=== PATIENT | male | born 1970 | race Caucasian/White ===

== ENCOUNTER 2017-01-30 12:09 | Inpatient (IN) | payer OTHER ==
[2017-01-30 18:35] VITALS: BMI 36.3
--- NOTE | 2017-01-30 20:37 | HP ---
CIWA Score - CIWA Score Nausea/Vomitin-Mild Nausea/No Vomiting Muscle Tremors: 4-Moderate,w/Arms Extend Anxiety: 4-Mod. Anxious/Guarded Agitation: 4-Moderately Restless Paroxysmal Sweats: 2 Orientation: 1-Uncertain about Date Tacttile Disturbances: 0-None Auditory Disturbances: 0-None Visual Disturbances: 0-None Headache: 0-None Present CIWA-Ar Total Score: 16 Admission ROS BHS - HPI Chief Complaint: WITHDRAWAL SX Allergies/Adverse Reactions: Allergies Allergy/AdvReac Type Severity Reaction Status Date / Time No Known Allergies Allergy Verified 01/30/17 20:10 History of Present Illness: 46 YEARS OLD MALE WITH LONG HISTORY OF KLONOPINE NICOTINE DEPENDENCE HAS HEPATITIS C GERD CONSTIPATION AND BIPOLAR II IS ADMITTED TO DETOX Exam Limitations: No Limitations - Ebola screening Have you traveled outside of the country in the last 21 days: No Have you had contact with anyone from an Ebola affected area: No Have you been sick,other than usual withdrawal symptoms: No Do you have a fever: No - Review of Systems Constitutional: Chills, Changes in sleep, Weight Stable EENT: reports: No Symptoms Reported Respiratory: reports: No Symptoms reported Cardiac: reports: No Symptoms Reported GI: reports: Nausea, Poor Fluid Intake, Indigestion, Abdominal cramping : reports: No Symptoms Reported Musculoskeletal: reports: Joint Pain (KNEES), Muscle Pain (SHOULDERS) Integumentary: reports: No Symptoms Reported Neuro: reports: Tremors Endocrine: reports: No Symptoms Reported Hematology: reports: No Symptoms Reported Psychiatric: reports: Judgement Intact, Anxious, Depressed Other Systems: Reviewed and Negative Patient History - Patient Medical History Hx Anemia: No Hx Asthma: No Hx Chronic Obstructive Pulmonary Disease (COPD): No Hx Cancer: No Hx Cardiac Disorders: No Hx Congestive Heart Failure: No Hx Hypertension: No Hx Hypercholesterolemia: No Hx Pacemaker: No HX Cerebrovascular Accident: No Hx Seizures: No Hx Dementia: No Hx Diabetes: No Hx Gastrointestinal Disorders: No Hx Liver Disease: No Hx Genitourinary Disorders: No Hx Sexually Transmitted Disorders: No Hx Renal Disease (ESRD): No Hx Thyroid Disease: No Hx Human Immunodeficiency Virus (HIV): No Hx Hepatitis C: Yes Hx Depression: No Hx Suicide Attempt: No Hx Bipolar Disorder: No Hx Schizophrenia: No - Patient Surgical History Past Surgical History: Yes Hx Neurologic Surgery: No Hx Cataract Extraction: No Hx Cardiac Surgery: No Hx Lung Surgery: No Hx Breast Surgery: No Hx Breast Biopsy: No Hx Abdominal Surgery: Yes (2009 UMBILICAL HERNIA REPAIRED) Hx Appendectomy: No Hx Cholecystectomy: No Hx Genitourinary Surgery: No Hx Orthopedic Surgery: No Anesthesia Reaction: No - PPD History Previous Implant?: Yes Documented Results: Negative w/o proof Implanted On Prior R Admission?: No PPD to be Administered?: Yes - Smoking Cessation Smoking history: Current every day smoker Aproximately how many cigarettes per day: 10 Cigars Per Day: 0 Hx Chewing Tobacco Use: No Initiated information on smoking cessation: Yes 'Breaking Loose' booklet given: 01/30/17 - Substance & Tx. History Hx Alcohol Use: No Hx Substance Use: Yes Substance Use Type: Marijuana, Tranquilizers Hx Substance Use Treatment: Yes - Substances Abused Benzodiazepine (Klonopin) Route: Oral Frequency: Daily Amount used: 6-8mg Age of first use: 19 Date of Last Use: 01/30/17 Family Disease History - Family Disease History Family Disease History: Heart Disease: Mother (CHF), Other: Father (NO CONTACT) , Sister Admission Physical Exam S - Vital Signs Vital Signs: Vital Signs - 24 hr 01/30/17 18:32 Temperature 96.8 F L Pulse Rate 88 Respiratory 18 Rate Blood Pressure 120/68 - Physical General Appearance: Yes: Appropriately Dressed, Mild Distress, Obese, Tremorous , Irritable, Sweating, Anxious HEENTM: Yes: Hearing grossly Normal, Normal ENT Inspection, Normocephalic, Normal Voice Respiratory: Yes: Chest Non-Tender, Lungs Clear, Normal Breath Sounds, No Respiratory Distress, No Accessory Muscle Use Neck: Yes: Supple, Trachea in good position Breast: Yes: Breasts Symetrical Cardiology: Yes: Regular Rhythm, Regular Rate, S1, S2 Abdominal: Yes: Non Tender, Soft, Decreased BS Genitourinary: Yes: Within Normal Limits Back: Yes: Normal Inspection Musculoskeletal: Yes: full range of Motion, Gait Steady, Back pain, Muscle Pain Extremities: Yes: Normal Inspection, Normal Range of Motion, Non-Tender, Tremors Neurological: Yes: Alert, Motor Strength 5/5, Normal Response, Depressed Affect Integumentary: Yes: Warm Lymphatic: Yes: Within Normal Limits - Diagnostic (1) Sedative, hypnotic or anxiolytic dependence with withdrawal, uncomplicated Current Visit: Yes Status: Acute (2) Methadone maintenance therapy patient Current Visit: Yes Status: Chronic Comment: 84 MG VERIFICATION PENDING (3) Hypertension Current Visit: Yes Status: Chronic Qualifiers: Hypertension type: essential hypertension Qualified Code(s): I10 - Essential (primary) hypertension (4) Hepatitis C antibody test positive Current Visit: Yes Status: Chronic (5) GERD (gastroesophageal reflux disease) Current Visit: Yes Status: Chronic Qualifiers: Esophagitis presence: without esophagitis Qualified Code(s): K21.9 - Gastro-esophageal reflux disease without esophagitis (6) Constipation Current Visit: Yes Status: Chronic Qualifiers: Constipation type: other constipation type Qualified Code(s): K59.09 - Other constipation (7) Bipolar II disorder Current Visit: Yes Status: Suspected Cleared for Admission BHS - Detox or Rehab [facility] Level of Care: Medically Managed Detox Regimen/Protocol: Valium S Breath Alcohol Content Breath Alcohol Content: 0 Urine Drug Screen - Results Urine Drug Screen Results: THC-Marijuana, BZO-Benzodiazepines, MTD-Methadone, TCA-Tricyclic Antidepress
[2017-01-30] MEDS ORDERED: diazePAM 5 MG TABLET PO ONE (20:49)
[2017-01-30] MEDS ORDERED: guaiFENesin/D-METHORPHAN HB 10 ML UNIT-DOSE CUPS PO PRN (20:49)
[2017-01-30] MEDS ORDERED: MENTHOL/PHENOL 1 EACH UD MM PRN (20:49)
[2017-01-30] MEDS ORDERED: LOPERAMIDE HCL 2 MG CAPSULE PO PRN (20:49)
[2017-01-30] MEDS ORDERED: P-EPHED 60MG/TRIPROLIDI 2.5MG TABLET PO PRN (20:49)
[2017-01-30] MEDS ORDERED: NICOTINE POLACRILEX 2 MG GUM BC PRN (20:49)
[2017-01-30] MEDS ORDERED: MAGNESIUM CITRATE 300 ML BOTTLE PO PRN (20:49)
[2017-01-30] MEDS ORDERED: MAGNESIUM HYDROX 2400MG/30ML ORAL SUSPENSION 30 ML CUP PO PRN (20:49)
[2017-01-30] MEDS ORDERED: MAG HYDROX/AL HYDROX/SIMETH 30 ML UNIT-DOSE CUP PO PRN (20:49)
[2017-01-30] MEDS ORDERED: BISACODYL 5 MG TABLET.DR (FP) PO PRN (21:08)
[2017-01-30] MEDS ORDERED: RANITIDINE HCL 150 MG TABLET (FP) PO SCH (22:00)
[2017-01-30] MEDS: diazePAM 5 MG TABLET PO SCH (22:38)
[2017-01-30] MEDS: cloNIDine HCL 0.1 MG TABLET PO SCH (22:38)
[2017-01-30] MEDS: THIAMINE HCL 100 MG TABLET (FP) PO SCH (22:38)
[2017-01-30] MEDS: SENNOSIDES 8.6MG TABLET (FP) PO SCH (22:38)
[2017-01-30] MEDS: diphenhydrAMINE HCL 50 MG CAPSULE PO PRN (22:41)
[2017-01-30 23:50] LABS: URINE APPEARANCE CLEAR; URINE BILIRUBIN NEGATIVE (NEGATIVE); URINE BLOOD NEGATIVE (NEGATIVE); URINE COLOR AMBER; URINE GLUCOSE (UA) NEGATIVE (NEGATIVE); URINE KETONE NEGATIVE (NEGATIVE); URINE NITRITE NEGATIVE (NEGATIVE); URINE UROBILINOGEN 2.0 E.U/dl E.U./dl (0.2-1.0)
[2017-01-31 00:10] LABS: URINE LEUK ESTERASE TRACE (NEGATIVE); URINE PROTEIN 1+ (NEGATIVE)
[2017-01-31 00:29] LABS: URINE HYALINE CAST 1 /lpf; URINE MUCUS RARE; URINE RBC <1 /hpf (0-3); URINE WBC 1 /hpf (3-5)
[2017-01-31] MEDS: diazePAM 5 MG TABLET PO SCH ×3 (05:48→22:24)
[2017-01-31] MEDS ORDERED: METHADONE HCL 40 MG DISPERSABLE TABLET PO SCH (07:45)
[2017-01-31] MEDS ORDERED: METHADONE HCL 40 MG DISPERSABLE TABLET ONE (08:36)
[2017-01-31] MEDS ORDERED: METHADONE HCL 5 MG TABLET ONE (08:36)
[2017-01-31] MEDS: diazePAM 5 MG TABLET PO PRN ×3 (09:10→20:33)
[2017-01-31] MEDS: PRENATAL VITAMINS W/ FOLIC ACID TABLET (FP) PO SCH (09:55)
[2017-01-31] MEDS: cloNIDine HCL 0.1 MG TABLET PO SCH ×2 (09:55→22:24)
[2017-01-31] MEDS: METHADONE 80 MG, METHADONE 5 MG PO SCH (09:55)
[2017-01-31] MEDS: RANITIDINE HCL 150 MG TABLET (FP) PO SCH (09:56)
[2017-01-31] MEDS: NICOTINE 14 MG/24 HOURS TOPICAL PATCH TD SCH (09:59)
[2017-01-31 10:15] LABS: MCH 29.1 pg (25.7-33.7); MCHC 34.2 g/dl (32.0-35.9); MEAN CELL VOLUME 85.1 fl (80-96); MEAN PLT VOLUME 9.4 fl (7.5-11.1); PLATELET COUNT 185 K/MM3 (134-434); RDW 13.3 % (11.9-15.9); WHITE BLOOD COUNT 6.2 K/mm3 (4.0-10.0)
[2017-01-31 10:30] LABS: ALK PHOS 86 U/L (45-117); ANION GAP 8 (8-16); BILIRUBIN,TOTAL 0.3 mg/dL (0.2-1.0); CALCIUM 8.8 mg/dL (8.5-10.1); CO2 31 mmol/L (21-32); COCKROFT - GAULT 127.55; CREATININE 1.1 mg/dL (0.7-1.3); GLUCOSE,RANDOM 108 mg/dL (74-106); SGOT/AST 27 U/L (15-37); SGPT/ALT 34 U/L (12-78); TOT PROT 7.6 g/dl (6.4-8.2)
--- NOTE | 2017-01-31 12:19 | EKG ---
Test Reason : Blood Pressure : / mmHG Vent. Rate : 073 BPM Atrial Rate : 073 BPM P-R Int : 170 ms QRS Dur : 092 ms QT Int : 408 ms P-R-T Axes : 021 -15 028 degrees QTc Int : 449 ms NORMAL SINUS RHYTHM NORMAL ECG NO PREVIOUS ECGS AVAILABLE Confirmed by MD UGO, STEPHEN ([id number]) on 01/31/2017 12:18:45 PM Referred By: Confirmed By:STEPHEN ARIZMENDI MD
--- NOTE | 2017-01-31 15:52 | PN ---
S CIWA - CIWA Score Nausea/Vomitin Muscle Tremors: 5 Anxiety: 4-Mod. Anxious/Guarded Agitation: 3 Paroxysmal Sweats: 4-Forehead w/Sweat Beads Orientation: 0-Oriented Tacttile Disturbances: 3-Moderate Itch/Numb/Burn Auditory Disturbances: 2-Mild Harshness/Frighten Visual Disturbances: 2-Mild Sensitivity Headache: 0-None Present CIWA-Ar Total Score: 26 BHS Progress Note (SOAP) Subjective: Stomach Cramping, Tremors, Anxious, Body Aches, Nausea, Sweating. Objective: PT. A & O X 3, OBSERVED AMBULATING ON UNIT. 01/31/17 15:49 Laboratory Tests 01/30/17 01/31/17 01/31/17 23:40 06:00 06:00 WBC 6.2 RBC 4.73 Hgb 13.8 Hct 40.3 MCV 85.1 MCHC 34.2 RDW 13.3 Plt Count 185 MPV 9.4 Sodium 139 Potassium 4.5 Chloride 100 Carbon Dioxide 31 Anion Gap 8 BUN 20 H Creatinine 1.1 Creat Clearance w eGFR > 60 Random Glucose 108 H Calcium 8.8 Total Bilirubin 0.3 AST 27 ALT 34 Alkaline Phosphatase 86 Total Protein 7.6 Albumin 4.0 Urine Color Maria Esther Urine Appearance Clear Urine pH 5.0 Ur Specific [place] 1.025 Urine Protein 1+ H Urine Glucose (UA) Negative Urine Ketones Negative Urine Blood Negative Urine Nitrite Negative Urine Bilirubin Negative Urine Urobilinogen 2.0 e.u/dl Ur Leukocyte Esterase Trace H Urine RBC <1 Urine WBC 1 Ur Epithelial Cells Rare Hyaline Casts 1 Urine Mucus Rare RPR Titer 01/31/17 06:00 WBC RBC Hgb Hct MCV MCHC RDW Plt Count MPV Sodium Potassium Chloride Carbon Dioxide Anion Gap BUN Creatinine Creat Clearance w eGFR Random Glucose Calcium Total Bilirubin AST ALT Alkaline Phosphatase Total Protein Albumin Urine Color Urine Appearance Urine pH Ur Specific [place] Urine Protein Urine Glucose (UA) Urine Ketones Urine Blood Urine Nitrite Urine Bilirubin Urine Urobilinogen Ur Leukocyte Esterase Urine RBC Urine WBC Ur Epithelial Cells Hyaline Casts Urine Mucus RPR Titer Nonreactive LABS NOTED. Assessment: 01/31/17 15:51 WITHDRAWAL SYMPTOMS. Plan: CONTINUE DETOX.
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
[2017-01-31] MEDS: THIAMINE HCL 100 MG TABLET (FP) PO SCH (22:23)
[2017-01-31] MEDS: diphenhydrAMINE HCL 50 MG CAPSULE PO PRN (22:24)
[2017-01-31] MEDS: SENNOSIDES 8.6MG TABLET (FP) PO SCH (22:24)
[2017-01-31] MEDS: QUEtiapine FUMARATE 100 MG TABLET (FP) PO SCH (22:24)
[2017-02-01] MEDS ORDERED: METHADONE HCL 5 MG TABLET ONE (03:08)
[2017-02-01] MEDS ORDERED: METHADONE HCL 40 MG DISPERSABLE TABLET ONE (03:09)
[2017-02-01] MEDS: diazePAM 5 MG TABLET PO PRN ×4 (05:33→19:30)
[2017-02-01] MEDS: METHADONE 80 MG, METHADONE 5 MG PO SCH (05:33)
[2017-02-01] MEDS: PARoxetine HCL 20 MG TABLET (FP) PO SCH (09:43)
[2017-02-01] MEDS: cloNIDine HCL 0.1 MG TABLET PO SCH ×2 (09:43→22:12)
[2017-02-01] MEDS: NICOTINE 14 MG/24 HOURS TOPICAL PATCH TD SCH (09:44)
[2017-02-01] MEDS: RANITIDINE HCL 150 MG TABLET (FP) PO SCH (09:44)
[2017-02-01] MEDS: PRENATAL VITAMINS W/ FOLIC ACID TABLET (FP) PO SCH (09:45)
[2017-02-01] MEDS: diazePAM 5 MG TABLET PO SCH ×2 (10:58→22:12)
--- NOTE | 2017-02-01 15:29 | PN ---
[facility] CIWA - CIWA Score Nausea/Vomitin-Int. Nausea w/Dry Heave Muscle Tremors: 4-Moderate,w/Arms Extend Anxiety: 4-Mod. Anxious/Guarded Agitation: 4-Moderately Restless Paroxysmal Sweats: 1-Minimal Palms Moist Orientation: 0-Oriented Tacttile Disturbances: 1-Very Mild Itch/Numbness Auditory Disturbances: 0-None Visual Disturbances: 0-None Headache: 2-Mild CIWA-Ar Total Score: 20 S Progress Note (SOAP) Subjective: Tremor, sweating, restless, body aches, nausea Objective: 02/01/17 15:27 Last Vital Signs Temp Pulse Resp BP Pulse Ox 96.6 F L 78 18 136/86 02/01/17 13:16 02/01/17 13:16 02/01/17 13:16 02/01/17 13:16 Laboratory Tests 01/30/17 01/31/17 01/31/17 23:40 06:00 06:00 WBC 6.2 RBC 4.73 Hgb 13.8 Hct 40.3 MCV 85.1 MCHC 34.2 RDW 13.3 Plt Count 185 MPV 9.4 Sodium 139 Potassium 4.5 Chloride 100 Carbon Dioxide 31 Anion Gap 8 BUN 20 H Creatinine 1.1 Creat Clearance w eGFR > 60 Random Glucose 108 H Calcium 8.8 Total Bilirubin 0.3 AST 27 ALT 34 Alkaline Phosphatase 86 Total Protein 7.6 Albumin 4.0 Urine Color Maria Esther Urine Appearance Clear Urine pH 5.0 Ur Specific [place] 1.025 Urine Protein 1+ H Urine Glucose (UA) Negative Urine Ketones Negative Urine Blood Negative Urine Nitrite Negative Urine Bilirubin Negative Urine Urobilinogen 2.0 e.u/dl Ur Leukocyte Esterase Trace H Urine RBC <1 Urine WBC 1 Ur Epithelial Cells Rare Hyaline Casts 1 Urine Mucus Rare RPR Titer 01/31/17 06:00 WBC RBC Hgb Hct MCV MCHC RDW Plt Count MPV Sodium Potassium Chloride Carbon Dioxide Anion Gap BUN Creatinine Creat Clearance w eGFR Random Glucose Calcium Total Bilirubin AST ALT Alkaline Phosphatase Total Protein Albumin Urine Color Urine Appearance Urine pH Ur Specific [place] Urine Protein Urine Glucose (UA) Urine Ketones Urine Blood Urine Nitrite Urine Bilirubin Urine Urobilinogen Ur Leukocyte Esterase Urine RBC Urine WBC Ur Epithelial Cells Hyaline Casts Urine Mucus RPR Titer Nonreactive Labs noted: UA 1+ protein Assessment: 02/01/17 15:28 Withdrawal symptoms Noted with proteinuria Plan: Continue detox Proteinuria: encouraged to drink lots of water, repeat UA
[2017-02-01] MEDS: THIAMINE HCL 100 MG TABLET (FP) PO SCH (22:12)
[2017-02-01] MEDS: SENNOSIDES 8.6MG TABLET (FP) PO SCH (22:12)
[2017-02-01] MEDS: QUEtiapine FUMARATE 100 MG TABLET (FP) PO SCH (22:13)
[2017-02-01] MEDS: diphenhydrAMINE HCL 50 MG CAPSULE PO PRN (22:13)
[2017-02-02] MEDS ORDERED: METHADONE HCL 5 MG TABLET ONE (03:48)
[2017-02-02] MEDS ORDERED: METHADONE HCL 40 MG DISPERSABLE TABLET ONE (03:49)
[2017-02-02] MEDS: METHADONE 80 MG, METHADONE 5 MG PO SCH (05:27)
[2017-02-02] MEDS: diazePAM 5 MG TABLET PO PRN ×3 (05:27→18:57)
[2017-02-02] MEDS ORDERED: ONDANSETRON *ODT* 4 MG TABLET SL PRN (10:04)
[2017-02-02] MEDS: NICOTINE 14 MG/24 HOURS TOPICAL PATCH TD SCH (10:08)
[2017-02-02] MEDS ORDERED: ONDANSETRON *ODT* 4 MG TABLET SL ONE (10:15)
[2017-02-02] MEDS: PARoxetine HCL 20 MG TABLET (FP) PO SCH (10:58)
[2017-02-02] MEDS: diazePAM 5 MG TABLET PO SCH ×2 (10:58→22:13)
[2017-02-02] MEDS: RANITIDINE HCL 150 MG TABLET (FP) PO SCH (10:58)
[2017-02-02] MEDS: cloNIDine HCL 0.1 MG TABLET PO SCH ×2 (10:58→22:13)
[2017-02-02] MEDS: PRENATAL VITAMINS W/ FOLIC ACID TABLET (FP) PO SCH (10:58)
--- NOTE | 2017-02-02 11:35 | PN ---
BHS Progress Note (SOAP) Subjective: Sweating,interrupted sleep,restless Objective: 02/02/17 11:34 Laboratory Last Values WBC 6.2 K/mm3 (4.0-10.0) 01/31/17 06:00 RBC 4.73 M/mm3 (4.00-5.60) 01/31/17 06:00 Hgb 13.8 GM/dL (11.7-16.9) 01/31/17 06:00 Hct 40.3 % (35.4-49) 01/31/17 06:00 MCV 85.1 fl (80-96) 01/31/17 06:00 MCHC 34.2 g/dl (32.0-35.9) 01/31/17 06:00 RDW 13.3 % (11.9-15.9) 01/31/17 06:00 Plt Count 185 K/MM3 (134-434) 01/31/17 06:00 MPV 9.4 fl (7.5-11.1) 01/31/17 06:00 Sodium 139 mmol/L (136-145) 01/31/17 06:00 Potassium 4.5 mmol/L (3.5-5.1) 01/31/17 06:00 Chloride 100 mmol/L (98-107) 01/31/17 06:00 Carbon Dioxide 31 mmol/L (21-32) 01/31/17 06:00 Anion Gap 8 (8-16) 01/31/17 06:00 BUN 20 mg/dL (7-18) H 01/31/17 06:00 Creatinine 1.1 mg/dL (0.7-1.3) 01/31/17 06:00 Creat Clearance w eGFR > 60 (>60) 01/31/17 06:00 Random Glucose 108 mg/dL (74-106) H 01/31/17 06:00 Calcium 8.8 mg/dL (8.5-10.1) 01/31/17 06:00 Total Bilirubin 0.3 mg/dL (0.2-1.0) 01/31/17 06:00 AST 27 U/L (15-37) 01/31/17 06:00 ALT 34 U/L (12-78) 01/31/17 06:00 Alkaline Phosphatase 86 U/L (45-117) 01/31/17 06:00 Total Protein 7.6 g/dl (6.4-8.2) 01/31/17 06:00 Albumin 4.0 g/dl (3.4-5.0) 01/31/17 06:00 Urine Color Maria Esther 01/30/17 23:40 Urine Appearance Clear 01/30/17 23:40 Urine pH 5.0 (5.0-8.0) 01/30/17 23:40 Ur Specific [place] 1.025 (1.005-1.025) 01/30/17 23:40 Urine Protein 1+ (NEGATIVE) H 01/30/17 23:40 Urine Glucose (UA) Negative (NEGATIVE) 01/30/17 23:40 Urine Ketones Negative (NEGATIVE) 01/30/17 23:40 Urine Blood Negative (NEGATIVE) 01/30/17 23:40 Urine Nitrite Negative (NEGATIVE) 01/30/17 23:40 Urine Bilirubin Negative (NEGATIVE) 01/30/17 23:40 Urine Urobilinogen 2.0 e.u/dl E.U./dl (0.2-1.0) 01/30/17 23:40 Ur Leukocyte Esterase Trace (NEGATIVE) H 01/30/17 23:40 Urine RBC <1 /hpf (0-3) 01/30/17 23:40 Urine WBC 1 /hpf (3-5) 01/30/17 23:40 Ur Epithelial Cells Rare /hpf (FEW) 01/30/17 23:40 Hyaline Casts 1 /lpf 01/30/17 23:40 Urine Mucus Rare 01/30/17 23:40 RPR Titer Nonreactive (NONREACTIVE) 01/31/17 06:00 labs noted Assessment: 02/02/17 11:34 Withdrawal sx. Plan: Continue detox
[2017-02-02] MEDS ORDERED: BISACODYL 5 MG TABLET.DR (FP) PO PRN (14:00)
[2017-02-02 14:37] LABS: URINE APPEARANCE CLEAR; URINE BILIRUBIN NEGATIVE (NEGATIVE); URINE BLOOD NEGATIVE (NEGATIVE); URINE COLOR YELLOW; URINE GLUCOSE (UA) NEGATIVE (NEGATIVE); URINE KETONE NEGATIVE (NEGATIVE); URINE NITRITE NEGATIVE (NEGATIVE); URINE PROTEIN NEGATIVE (NEGATIVE); URINE UROBILINOGEN 2.0 E.U/dl E.U./dl (0.2-1.0)
[2017-02-02 14:42] LABS: URINE LEUK ESTERASE TRACE (NEGATIVE)
[2017-02-02 16:13] LABS: URINE MUCUS RARE; URINE RBC <1 /hpf (0-3); URINE WBC <1 /hpf (3-5)
[2017-02-02] MEDS: ACETAMINOPHEN 325 MG TABLET (FP) PO PRN ×2 (16:37→22:14)
[2017-02-02] MEDS: THIAMINE HCL 100 MG TABLET (FP) PO SCH (22:13)
[2017-02-02] MEDS: QUEtiapine FUMARATE 100 MG TABLET (FP) PO SCH (22:14)
[2017-02-02] MEDS: SENNOSIDES 8.6MG TABLET (FP) PO SCH (22:14)
[2017-02-02] MEDS: diphenhydrAMINE HCL 50 MG CAPSULE PO PRN (22:15)
[2017-02-03] MEDS ORDERED: METHADONE HCL 40 MG DISPERSABLE TABLET ONE (01:26)
[2017-02-03] MEDS ORDERED: METHADONE HCL 5 MG TABLET ONE (01:26)
[2017-02-03] MEDS: METHADONE 80 MG, METHADONE 5 MG PO SCH (05:51)
[2017-02-03 09:38] VITALS: BP 136/89; PULSE 98; TEMP 97.1
[2017-02-03] MEDS ORDERED: diazePAM 5 MG TABLET PO SCH (10:00)
[2017-02-03] MEDS: cloNIDine HCL 0.1 MG TABLET PO SCH (10:08)
[2017-02-03] MEDS: PRENATAL VITAMINS W/ FOLIC ACID TABLET (FP) PO SCH (10:08)
[2017-02-03] MEDS: PARoxetine HCL 20 MG TABLET (FP) PO SCH (10:09)
[2017-02-03] MEDS: NICOTINE 14 MG/24 HOURS TOPICAL PATCH TD SCH (10:09)
--- NOTE | 2017-02-03 10:11 | DS ---
[facility] Detox Discharge Summary Admission Date: 01/30/17 Discharge Date: 02/03/17 - History Present History: Sedative Dependence, MMTP Additional Comments: DETOX COMPLETED. ALERT O X 3. NAD. Pertinent Past History: HTN GERD CONSTIPATION BIPOLAR DISORDER - Physical Exam Results Vital Signs: Vital Signs Temperature 97.1 F L 02/03/17 09:37 Pulse Rate 98 H 02/03/17 09:37 Respiratory Rate 18 02/03/17 09:37 Blood Pressure 136/89 02/03/17 09:37 O2 Sat by Pulse Oximetry (%) Pertinent Admission Physical Exam Findings: WITHDRAWAL SX - Treatment Hospital Course: Detox Protocol Followed, Detoxed Safely, Responded well, Discharged Condition Good - Medication Discharge Medications: Ambulatory Orders Ibuprofen [Motrin Ib] 600 mg PO TID PRN #20 tablet 10/31/13 No Home Medications 0 dose .ROUTE UTDICT 10/31/13 Oxycodone HCl/Acetaminophen [Percocet 5-325 mg Tablet] 1 - 2 combo PO Q6H PRN # 10 tablet 10/31/13 - Diagnosis (1) Nicotine dependence Current Visit: Yes Status: Acute Qualifiers: Nicotine product type: cigarettes Substance use status: in withdrawal Qualified Code(s): F17.213 - Nicotine dependence, cigarettes, with withdrawal (2) Sedative, hypnotic or anxiolytic dependence with withdrawal, uncomplicated Current Visit: Yes Status: Acute (3) Constipation Current Visit: Yes Status: Chronic Qualifiers: Constipation type: other constipation type Qualified Code(s): K59.09 - Other constipation (4) GERD (gastroesophageal reflux disease) Current Visit: Yes Status: Chronic Qualifiers: Esophagitis presence: without esophagitis Qualified Code(s): K21.9 - Gastro-esophageal reflux disease without esophagitis (5) Hepatitis C antibody test positive Current Visit: Yes Status: Chronic (6) Hypertension Current Visit: Yes Status: Chronic Qualifiers: Hypertension type: essential hypertension Qualified Code(s): I10 - Essential (primary) hypertension - AMA Did Patient Leave Against Medical Advice: No
[2017-02-03] MEDS: RANITIDINE HCL 150 MG TABLET (FP) PO SCH (10:30)
[2017-02-03] MEDS: ACETAMINOPHEN 325 MG TABLET (FP) PO PRN (10:30)
== END 2017-02-03 10:50 | disposition home or self-care (01) | DRG 773 ==
LOC: YASAS 12:09 → Y3N 19:59
PROVIDERS: ADMIT Internal Medicine; ATTEND Internal Medicine
PROC: HZ2ZZZZ Detoxification Services for Substance Abuse Treatment (ICD-10-PCS; principal; 2017-01-30)
DX: F13.230 Sedative, hypnotic or anxiolytic dependence with withdrawal, uncomplicated (principal); F11.20 Opioid dependence, uncomplicated; F12.20 Cannabis dependence, uncomplicated; F17.213 Nicotine dependence, cigarettes, with withdrawal; F19.24 Other psychoactive substance dependence with psychoactive substance-induced mood disorder; F31.81 Bipolar II disorder; I10 Essential (primary) hypertension; K21.9 Gastro-esophageal reflux disease without esophagitis; B18.2 Chronic viral hepatitis C; K59.00 Constipation, unspecified
CPT/HCPCS: 36415; 80053; 81003; 81015; 85027; 86593; 93005; 93010

== ENCOUNTER 2017-03-19 11:01 | Inpatient (IN) | payer OTHER ==
[2017-03-19 11:07] VITALS: BMI 37.5
--- NOTE | 2017-03-19 11:45 | PDOC ---
History of Present Illness <Sherri Solano - Last Filed: 03/19/17 19:12> - General History Source: Patient Exam Limitations: No Limitations - History of Present Illness Travel History: No Initial Comments: 03/20/17 07:22 46y M hx of substance abuse presents with approx 4 days of intermittent abd pain. The pts pain is diffuse, nonradiating intermittent, aching, associated with nbnb vomiting, no associated fever/chills. the pt does endorse a history of constipation, and states he has only had small BMs the past few days. Pt denies any dysuria, hematuria, diarrhea., melena, bpr. pt precious any cp, sob, back pain. no association of the pain to eating. pt notes he has had intermttent abd pain for the past year, he went to his doctor last year who gave him some laxitives. +surgical history - hernia repair w/ mesh <Nilo Nieves - Last Filed: 03/20/17 07:23> - General Chief Complaint: Constipation Stated Complaint: constipation Time Seen by Provider: 03/19/17 11:21 Past History <Sherri Solano - Last Filed: 03/19/17 19:12> - Past Medical History Anemia: No Asthma: No Cancer: No Cardiac Disorders: No CVA: No COPD: No CHF: No Dementia: No Diabetes: No GI Disorders: No Disorders: No HTN: No Hypercholesterolemia: No Kidney Stones: No Liver Disease: No Suicide Attempt (Hx): No Seizures: No Thyroid Disease: No - Surgical History Abdominal Surgery: Yes (2009 UMBILICAL HERNIA REPAIRED) Appendectomy: No Cardiac Surgery: No Cholecystectomy: No Lung Surgery: No Neurologic Surgery: No Orthopedic Surgery: No - Reproductive History Testicular Surgery: No - Psycho/Social/Smoking Cessation Hx Anxiety: Yes Suicidal Ideation: No Smoking History: Current every day smoker Have you smoked in the past 12 months: Yes Number of Cigarettes Smoked Daily: 10 Cigars Per Day: 0 Information on smoking cessation initiated: Yes 'Breaking Loose' booklet given: 03/19/17 Hx Alcohol Use: No Drug/Substance Use Hx: Yes Substance Use Type: Marijuana, Tranquilizers Hx Substance Use Treatment: Yes <Nilo Nieves - Last Filed: 03/20/17 07:23> - Past Medical History Allergies/Adverse Reactions: Allergies Allergy/AdvReac Type Severity Reaction Status Date / Time No Known Allergies Allergy Verified 03/19/17 11:03 Home Medications: Ambulatory Orders Buspirone HCl [Buspar -] 10 mg PO TID 03/19/17 Clonidine HCl [Catapres -] 0.2 mg PO BID 03/19/17 Methadone [Dolophine -] 0 mg PO DAILY 03/19/17 Quetiapine Fumarate [Seroquel -] 225 mg PO HS 03/19/17 Abd/GI Specific PMHX - Complaint Specific PMHX Hepatitis: Yes (HEP C) Pancreatitis: No <Nilo Nieves - Last Filed: 03/20/17 07:23> Review of Systems - Review of Systems Able to Perform ROS?: Yes Comments:: 03/19/17 12:58 Constitutional - no reported Fever, Chills, HEENT: no reported vision changes, sore throat Respiratory: no reported cough, sob, hemoptysis Cardiac: no reported chest pain, palpitations, light headedness, leg swelling Abd/GI: + abd pain, nausea, vomiting, no reported blood per rectum, melena, diarrhea : no reported dysuria, frequency, discharge Musculskelatal - no reported back pain, joint swelling skin - no reported bruising, erythema, rash neurological: no reported headache, numbness, focal weakness, tingling, ataxia, hematologic: no reported anemia, easy bruising, easy bleeding <Nilo Nieves - Last Filed: 03/20/17 07:23> *Physical Exam - Vital Signs Last Vital Signs Temp Pulse Resp BP Pulse Ox 98 F 85 18 168/87 100 03/19/17 11:03 03/19/17 11:46 03/19/17 11:03 03/19/17 11:46 03/19/17 11:03 <Sherri Solano - Last Filed: 03/19/17 19:12> - Vital Signs Last Vital Signs Temp Pulse Resp BP Pulse Ox 98 F 91 H 18 172/104 100 03/19/17 11:03 03/19/17 11:03 03/19/17 11:03 03/19/17 11:03 03/19/17 11:03 - Physical Exam Comments: 03/19/17 12:59 GENERAL: The patient is awake, alert, and fully oriented, Nontoxic - in no acute distress. HEAD: Normocephalic, atraumatic. EYES: extraocular movements intact, sclera anicteric, conjunctiva clear. ENT: Normal voice, Moist mucous membranes. NECK: Normal range of motion, supple LUNGS: Breath sounds equal, clear to auscultation bilaterally. No wheezes, no rhonchi, no rales. HEART: Regular rate and rhythm, normal S1 and S2 without murmur, rub or gallop. ABDOMEN: Soft, mild diffuse tenderness, normoactive bowel sounds. No guarding, no rebound. No CVA tenderness EXTREMITIES: Normal range of motion, no edema. No clubbing or cyanosis. No cords, erythema, or tenderness. NEUROLOGICAL: No facial assymetry, Normal speech, moving all 4 extremities spontaneously and symmetrically PSYCH: Normal mood, normal affect. SKIN: Warm, Dry, normal turgor, <Nilo Nieves - Last Filed: 03/20/17 07:23> Heart Score/ECG Review - ECG Impressions Comment:: 03/19/17 13:52 Twelve-lead EKG was performed and reviewed by me. There is normal sinus rhythm with a normal rate. Rate of 87 The axis is normal. The intervals are normal. There is normal R wave progression There are no ST or T wave abnormalities. Impression: Normal twelve-lead EKG <Nilo Nieves - Last Filed: 03/20/17 07:23> ED Treatment Course - LABORATORY CBC & Chemistry Diagram: 03/19/17 11:15 03/19/17 11:54 - ADDITIONAL ORDERS Additional order review: Laboratory Results 03/19/17 03/19/17 12:35 11:54 Sodium 134 L Potassium 4.1 Chloride 97 L Carbon Dioxide 30 H Anion Gap 7 L BUN 16 Creatinine 1.0 Creat Clearance w eGFR > 60 Random Glucose 155 H Calcium 8.6 Total Bilirubin 0.6 AST 23 ALT 25 Alkaline Phosphatase 83 Total Protein 7.2 Albumin 3.7 Lipase 25 Urine Color Yellow Urine Appearance Sl cloudy Urine pH 6.5 Ur Specific [place] 1.025 Urine Protein Trace Urine Glucose (UA) Trace Urine Ketones Negative Urine Blood Negative Urine Nitrite Negative Urine Bilirubin Negative Urine Urobilinogen 1.0 e.u/dl Ur Leukocyte Esterase Negative 03/19/17 11:15 RBC 4.64 MCV 84.0 MCHC 33.8 RDW 12.2 MPV 7.6 Neutrophils % 86.7 H Lymphocytes % 8.4 Monocytes % 2.9 L Eosinophils % 0.3 Basophils % 1.7 - RADIOLOGY Radiograph Interpretation: 03/19/17 17:22 EXAM#: TYPE/EXAM: RESULT: [id number] CT/ABDOMEN PELVIS CT WITH CONTR Abdominal pain and vomiting CT scan of the abdomen and pelvis following oral and intravenous contrast. Coronal and sagittal reformatted images were obtained 100 cc of Omnipaque 350 was intravenously injected Comparison: None available Visualized lung base appears unremarkable and the heart is within normal limits in size. Evaluation of the liver, spleen, pancreas, both adrenal glands and both kidneys appear unremarkable. Gallbladder is slightly over distended with wall thickening and a cholecystic edema. No gross gallstones are identified. Dilated common hepatic duct measuring 13 mm in diameter and slightly dilated common bile duct measuring 7 mm, distally. No gross intraductal stone is identified. No gross dilatation of the intrahepatic bile ducts. No gross intraductal stone is identified. Partially distended stomach without wall thickening. There is no evidence of small bowel obstruction. Normal-appearing terminal ileum. The appendix is not identified. No enlarged retroperitoneal or mesenteric lymph nodes are identified. Partially distended urinary bladder without wall thickening. Normal size prostate gland. Perirectal and pericecal fat is clear. Visualized osseous structures appear intact except for minimal retrolisthesis of L4 over L5, likely degenerative. Mild central disc bulge with posterior spur formation together with mild bilateral facet and ligamentum hypertrophy is resulting in at least mild degenerative spine canal stenosis. Correlate clinically and if needed further evaluation with a nonemergent MRI could be obtained Impression: Findings consistent with acute cholecystitis without gross evidence of gallstones. Dilated common hepatic duct and mild dilatation of the distal common bile duct measuring 7 mm. Please correlate with gallbladder ultrasound. Reported By: Tessie Rendon MD 03/19/171658 Nilo Nieves Technologist: Jonatan Velarde Transcribed Date/Time: 03/19/171658 Applier: Tessie Rendon - Medications Given in the ED: ED Medications Discontinued Medications Generic Name Dose Route Start Last Admin Trade Name Freq PRN Reason Stop Dose Admin Morphine Sulfate 4 mg 03/19/17 15:34 03/19/17 15:40 Morphine Injection - IVPUSH 03/19/17 15:35 4 mg ONCE ONE Administration Ondansetron HCl 4 mg 03/19/17 15:34 03/19/17 15:35 Zofran Injection IVPB 03/19/17 15:35 4 mg ONCE ONE Administration <Sherri Solano - Last Filed: 03/19/17 19:12> - LABORATORY CBC & Chemistry Diagram: 03/19/17 11:15 03/19/17 11:54 <Nilo Nieves - Last Filed: 03/20/17 07:23> Medical Decision Making - Medical Decision Making [facility] for admission of this patient at 17:10 Dr. Burnette was paged via phone answering service at 17:13 requesting a call back for doctor to doctor consult. Dr. Burnette was paged via phone answering service at 18:00 requesting a call back for doctor to doctor consult. Dr. Burnette was called via phone answering service at 19:00 and the patient's case was discussed. <Sherri Solano - Last Filed: 03/19/17 19:12> - Medical Decision Making 03/19/17 12:40 46y M hx of substance abuse presents with approx 4 days of intermittent abd pain. The pts pain is diffuse, nonradiating intermittent, aching, associated with nbnb vomiting, no associated fever/chills. the pt does endorse a history of constipation, and states he has only had small BMs the past few days. Pt denies any dysuria, hematuria, diarrhea., melena, bpr. pt precious any cp, sob, back pain. no association of the pain to eating. pt notes he has had intermttent abd pain for the past year, he went to his doctor last year who gave him some laxitives. +surgical history - hernia repair w/ mesh 03/19/17 17:10 03/19/17 17:10 labs reviewed noted for leukocytosis CT Abd noted for cholecysitis pt written for flagyl levaquin +dilated cbd - will obtain RUQ US will admti to hospitalist and will notify surgery 03/19/17 18:[address] santizo. agreed with admission under dr. howard service stable for med surg awaoiting call back from surgery Case discussed in detail with admitting physician including history, physical exam and ancillary studies. Admitting physician has assumed care for the patient, will follow all pending diagnostics and will complete the evaluation and treatment. A portion of this note was documented by scribe services under my direction. I have reviewed the details of the note, within reason, and agree with the documentation with the following case summary and management plan written by me 03/20/17 07:22 <Nilo Nieves - Last Filed: 03/20/17 07:23> *DC/Admit/Observation/Transfer - Attestations Scribe Attestion: 03/19/17 17:19 Documentation prepared by Sherri Solano, acting as medical assistant for Nilo Nieves MD, MD <Sherri Solano - Last Filed: 03/19/17 19:12> - Discharge Dispostion Admit: Yes <Nilo Nieves - Last Filed: 03/20/17 07:23> Diagnosis at time of Disposition: Cholecystitis - Discharge Dispostion Condition at time of disposition: Stable
[2017-03-19 12:03] LABS: BASOPHIL 1.7 % (0-2.0); EOSINOPHIL 0.3 % (0-4.5); MCH 28.4 pg (25.7-33.7); MCHC 33.8 g/dl (32.0-35.9); MEAN PLT VOLUME 7.6 fl (7.5-11.1); NEUTROPHILS 86.7 % (42.8-82.8); PLATELET COUNT 282 K/MM3 (134-434); RDW 12.2 % (11.9-15.9); WHITE BLOOD COUNT 14.5 K/mm3 (4.0-10.8)
[2017-03-19 12:23] LABS: ALBUMIN 3.7 g/dl (3.5-5.0); ALK PHOS 83 U/L (32-92); ANION GAP 7 (8-16); BILIRUBIN,TOTAL 0.6 mg/dl (0.2-1.0); CALCIUM 8.6 mg/dl (8.4-10.2); CO2 30 mmol/L (22-28); GLUCOSE,RANDOM 155 mg/dl (74-106); SGOT/AST 23 U/L (10-42); SGPT/ALT 25 U/L (10-40); TOT PROT 7.2 g/dl (6.4-8.3)
[2017-03-19 12:47] LABS: PH,URINE 6.5 (4.5-8); URINE BILIRUBIN Negative (NEGATIVE); URINE BLOOD Negative (NEGATIVE); URINE GLUCOSE (UA) Trace (NEGATIVE); URINE KETONE Negative (NEGATIVE); URINE LEUK ESTERASE Negative (NEGATIVE); URINE NITRITE Negative (NEGATIVE); URINE PROTEIN Trace (NEGATIVE); URINE UROBILINOGEN 1.0 E.U/dl (0.2-1.0)
[2017-03-19 12:48] LABS: URINE APPEARANCE SL CLOUDY; URINE COLOR YELLOW
[2017-03-19] MEDS ORDERED: ONDANSETRON 4 MG/2 ML VIAL IVPB ONE (15:34)
[2017-03-19] MEDS ORDERED: morphine CARPU-JECT 4 MG/1 ML DISP.SYRIN IVPUSH ONE (15:34)
[2017-03-19] MEDS ORDERED: morphine CARPU-JECT 4 MG/1 ML DISP.SYRIN ONE (15:37)
[2017-03-19] MEDS ORDERED: ONDANSETRON 4 MG/2 ML VIAL ONE (15:37)
[2017-03-19] MEDS ORDERED: LEVOFLOXACIN 750 MG IVPB 150 ML IVPB ONE ×2 (17:05→17:10)
[2017-03-19] MEDS ORDERED: METRONIDAZOLE 500 MG PREMIXED 100 ML IVPB ONE ×2 (17:05→17:10)
[2017-03-19] MEDS ORDERED: ACETAMINOPHEN 1000 MG/100 ML VIAL (NON FORMULARY) IVPB ONE (17:15)
[2017-03-19] MEDS ORDERED: ACETAMINOPHEN INJECTION 100 ML IVPB ONE (17:16)
[2017-03-19 17:49] LABS: INR 1.07 (0.82-1.09)
--- NOTE | 2017-03-19 17:51 | HP ---
CHIEF COMPLAINT: PCP: HISTORY OF PRESENT ILLNESS: ER course was notable for: (1) labs (2)and x ray unremarkable, and CT acute acalcalous cholecystitis with cbd dilitation 7mm and hepatic duct dil, GB US (3) levaquin, flagyl, zofran, tylenol Recent Travel: PAST MEDICAL HISTORY: PAST SURGICAL HISTORY: Social History: Smoking: Alcohol: Drugs: Family History: Allergies No Known Allergies Allergy (Verified 03/19/17 11:03) HOME MEDICATIONS: Home Medications Medication Instructions Recorded Buspirone HCl [Buspar -] 0 mg PO TID 03/19/17 Clonidine HCl [Catapres -] 0.2 mg PO BID 03/19/17 Methadone [Dolophine -] 0 mg PO DAILY 03/19/17 REVIEW OF SYSTEMS CONSTITUTIONAL: Absent: fever, chills, diaphoresis, generalized weakness, malaise, loss of appetite, weight change HEENT: Absent: rhinorrhea, nasal congestion, throat pain, throat swelling, difficulty swallowing, mouth swelling, ear pain, eye pain, visual changes CARDIOVASCULAR: Absent: chest pain, syncope, palpitations, irregular heart rate, lightheadedness , peripheral edema RESPIRATORY: Absent: cough, shortness of breath, dyspnea with exertion, orthopnea, wheezing, stridor, hemoptysis GASTROINTESTINAL: Absent: abdominal pain, abdominal distension, nausea, vomiting, diarrhea, constipation, melena, hematochezia GENITOURINARY: Absent: dysuria, frequency, urgency, hesitancy, hematuria, flank pain, genital pain MUSCULOSKELETAL: Absent: myalgia, arthralgia, joint swelling, back pain, neck pain SKIN: Absent: rash, itching, pallor HEMATOLOGIC/IMMUNOLOGIC: Absent: easy bleeding, easy bruising, lymphadenopathy, frequent infections ENDOCRINE: Absent: unexplained weight gain, unexplained weight loss, heat intolerance, cold intolerance NEUROLOGIC: Absent: headache, focal weakness or paresthesias, dizziness, unsteady gait, seizure, mental status changes, bladder or bowel incontinence PSYCHIATRIC: Absent: anxiety, depression, suicidal or homicidal ideation, hallucinations. PHYSICAL EXAMINATION Vital Signs - 24 hr 03/19/17 03/19/17 03/19/17 11:03 11:46 17:41 Temperature 98 F 98.2 F Pulse Rate 91 H Pulse Rate [ 85 88 Left] Respiratory 18 16 Rate Blood Pressure 172/104 Blood Pressure 168/87 158/97 [Right Arm] O2 Sat by Pulse 100 96 Oximetry (%) GENERAL: Awake, alert, and fully oriented, in no acute distress. HEAD: Normal with no signs of trauma. EYES: Pupils equal, round and reactive to light, extraocular movements intact, sclera anicteric, conjunctiva clear. No lid lag. EARS, NOSE, THROAT: Ears normal, nares patent, oropharynx clear without exudates. Moist mucous membranes. NECK: Normal range of motion, supple without lymphadenopathy, JVD, or masses. LUNGS: Breath sounds equal, clear to auscultation bilaterally. No wheezes, and no crackles. No accessory muscle use. HEART: Regular rate and rhythm, normal S1 and S2 without murmur, rub or gallop. ABDOMEN: Soft, nontender, not distended, normoactive bowel sounds, no guarding, no rebound, no masses. No hepatomegaly or splenomegaly. MUSCULOSKELETAL: Normal range of motion at all joints. No bony deformities or tenderness. No CVA tenderness. UPPER EXTREMITIES: 2+ pulses, warm, well-perfused. No cyanosis. No clubbing. No peripheral edema. LOWER EXTREMITIES: 2+ pulses, warm, well-perfused. No calf tenderness. No peripheral edema. NEUROLOGICAL: Cranial nerves II-XII intact. Normal speech. Normal gait. PSYCHIATRIC: Cooperative. Good eye contact. Appropriate mood and affect. SKIN: Warm, dry, normal turgor, no rashes or lesions noted, normal capillary refill. Laboratory Results - last 24 hr 03/19/17 03/19/17 03/19/17 11:15 11:54 12:35 WBC 14.5 H RBC 4.64 Hgb 13.2 Hct 39.0 MCV 84.0 MCHC 33.8 RDW 12.2 Plt Count 282 MPV 7.6 Neutrophils % 86.7 H Lymphocytes % 8.4 Monocytes % 2.9 L Eosinophils % 0.3 Basophils % 1.7 Sodium 134 L Potassium 4.1 Chloride 97 L Carbon Dioxide 30 H Anion Gap 7 L BUN 16 Creatinine 1.0 Creat Clearance w eGFR > 60 Random Glucose 155 H Calcium 8.6 Total Bilirubin 0.6 AST 23 ALT 25 Alkaline Phosphatase 83 Total Protein 7.2 Albumin 3.7 Lipase 25 Urine Color Yellow Urine Appearance Sl cloudy Urine pH 6.5 Ur Specific [place] 1.025 Urine Protein Trace Urine Glucose (UA) Trace Urine Ketones Negative Urine Blood Negative Urine Nitrite Negative Urine Bilirubin Negative Urine Urobilinogen 1.0 e.u/dl Ur Leukocyte Esterase Negative ASSESSMENT/PLAN:
[2017-03-19] MEDS ORDERED: morphine CARPU-JECT 2 MG/1 ML DISP.SYRIN IVPUSH PRN (18:16)
[2017-03-19] MEDS ORDERED: morphine CARPU-JECT 2 MG/1 ML DISP.SYRIN ONE (18:44)
[2017-03-19] MEDS ORDERED: cefTRIAXone SODIUM 1 GM VIAL ONE (19:02)
[2017-03-19] MEDS: CEFTRIAXONE 50 ML IVPB SCH (19:07)
[2017-03-19] MEDS ORDERED: HYDROmorphone HCL CARPU-JECT 1 MG/1 ML DISP.SYRIN IVPUSH ONE (20:06)
[2017-03-19] MEDS ORDERED: HYDROmorphone HCL CARPU-JECT 1 MG/1 ML DISP.SYRIN ONE (20:07)
[2017-03-19] MEDS: SODIUM CHLORIDE 1,000 ML IV SCH (20:12)
[2017-03-19] MEDS ORDERED: METRONIDAZOLE 500 MG PREMIXED 100 ML IVPB SCH (21:00)
--- NOTE | 2017-03-19 21:13 | HP ---
Admitting History and Physical - Admission Chief Complaint: right upper quandrant abdominal pain History of Present Illness: The patient presented to the ER with a 4 day history of abdominal pain initially beginning about 4 days ago which was intermittent. The pain was not associated with nausea or vomiting and he had no fever or chills. It was not associated with eating. The pain became worse this AM and he was taken to the [facility] ER by his mother. He has a history of substance abuse and has been on methadone for 3 years. In the ER he had a WBC of 14K and did have a low grade temp of 100.8. Ct scan showed some thickening of his GB and ultrasound does show tiny stones with a thickened GB wall and mildly increased CBS at 1.2 cm but no pericholecystic fluid. All LFT's including bilirubin and lipase normal. Due to pain it was thought that admission and IV antibiotics and pain medication was necessary. 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: Alzheimer's, CVA, Dementia, Migraine, Multiple Sclerosis, Peripheral Neuropathy, Parkinson's, Seizure, Syncope, TIA, Vertigo, Other Cardiovascular: No: AFIB, Aneurysm, Aortic Insufficiency, Aortic Stenosis, CAD, CHF, Deep Vein Thrombosis, HTN, Hyperlipdemia, [place], Mitral Insufficiency, Mitral Stenosis, Murmur, Pulmonary Hypertension, Other Pulmonary: No: Asthma, Bronchitis, Cancer, COPD, O2 Dependent, Pneumonia, Previously Intubated, Pulmonary Embolus, Pulmonary Fibrosis, Sleep Apnea, Other Gastrointestinal: No: Ascites, Cancer, Constipation, Crohn's Disease, Diverticulitis, Diverticulosis, Esophageal Varices, Gastritis, GERD, GI Bleed, Hemorrhoids, Hiatal Hernia, Inflamatory Bowel Disease, Irritable Bowel Disease, Pancreatitis, Peptic Ulcer Disease, Ulcerative Colitis, Other Hepatobiliary: Yes: Hepatitis C Renal/: No: Renal Failure, Renal Inusuff, BPH, Cancer, Hematuria, Hemodialysis , Neurogenic Bladder, Renal Calculi, UTI, Other Heme/Onc: No: Anemia, B12 Deficiency, Bleeding Disorder, Cancer, Current Chemotherapy, Current Radiation Therapy, Hemochromatosis, Hypercoaguable State, Myeloproliferative Synd, Sickle Cell Disease, Sickle Cell Trait, Thrombocytopenia, Other Infectious Disease: No: AIDS, C-Diff, Herpes Zoster, HIV, MRSA, STD's, Tuberculosis, VREF, Other Psych: No: Addictions, Anxiety, Bipolar, Depression, Panic, Psychosis, Schizophrenia, Other Musculoskeletal: No: Bursitis, Chronic low back pain, Hemiparesis, Hemiplegia, Osteoarthritis, Paraplegia, Other Rheumatology: No: Fibromyalgia, Gout, Lupus, Rheumatoid Arthritis, Sarcoidosis, Vasculitis, Other ENT: No: Allergic Rhinitis, Sinusitis, Other Endocrine: No: Marin's Disease, Roberts[place]'s Disease, Diabetes Insipidus, Diabetes Mellitus, Hyperparathyroidism, Hyperthyroidism, Hypothyroidism, Osteopenia, SIADH, Other Dermatology: No: Basal Cell, Cellulitis, Eczema, Melanoma, Psoriasis, Squamous Cell, Other - Past Surgical History Past Surgical History: Yes: Hernia Repair (umbilical hernia repair) - Smoking History Smoking history: Current every day smoker Have you smoked in the past 12 months: Yes Aproximately how many cigarettes per day: 10 - Alcohol/Substance Use Hx Alcohol Use: No Home Medications - Allergies Allergies/Adverse Reactions: Allergies Allergy/AdvReac Type Severity Reaction Status Date / Time No Known Allergies Allergy Verified 03/19/17 11:03 - Home Medications Home Medications: Ambulatory Orders Buspirone HCl [Buspar -] 10 mg PO TID 03/19/17 Clonidine HCl [Catapres -] 0.2 mg PO BID 03/19/17 Methadone [Dolophine -] 0 mg PO DAILY 03/19/17 Quetiapine Fumarate [Seroquel -] 225 mg PO HS 03/19/17 Family Disease History - Family Disease History Family Disease History: Heart Disease: Mother (CHF), Other: Father (NO CONTACT) , Sister Review of Systems - Review of Systems Constitutional: reports: Other (abdominal pain and constipation) Eyes: denies: No Symptoms, Blind Spots, Blurred Vision, Double Vision, Eye Pain , Floaters, Photophobia, Recent Change in Vision, Other HENT: denies: No Symptoms, Difficult Swallowing, Ear Discharge, Ear Pain, Epistaxis, Gingival Bleeding, Hearing Loss, Mouth Swelling, Nasal Congestion, Ocular Prosthesis, Throat Pain, Toothache, Ringing in Ears, Other Neck: denies: No Symptoms, Decreased ROM, Lumps, Pain on Movement, Stiffness, Swollen Glands, Tenderness, Other Respiratory: denies: No Symptoms, Cough, Exercise Intolerance, Hemoptysis, Orthopnea, PND, Snoring, SOB, SOB on Exertion, Wheezing, Other Gastrointestinal: reports: Abdominal Pain (right upper quadrant abdominal pain now more constant) Genitourinary: denies: No Symptoms, Burning, Discharge, Dysuria, Flank Pain, Frequency, Hematuria, Incontinence, Lesions, Menses, Pain, Testicular Mass, Testicular Pain, Testicular Swelling, Urgency, Vaginal Bleeding, Other Musculoskeletal: denies: No Symptoms, Back Pain, Crepitus, Decreased ROM, Extremity Pain, Joint Pain, Joint Swelling, Muscle Pain, Muscle Cramps, Muscle Weakness, Other Integumentary: denies: No Symptoms, Blister, Bruising, Change in Color, Eczema, Erythema, Incision, Lesions, Lump, Pallor, Pruritis, Rash, Wound, Other Neurological: denies: No Symptoms, Change in LOC, Change in Speech, Confusion, Dizziness, Headache, Incoordination, Numbness, Parasthesia, Pre-Existing Deficit , Seizure, Syncope, Tremors, Unsteady Gait, Weakness, Other Endocrine: denies: No Symptoms, Excessive Sweating, Flushing, Increased Hunger, Increased Thirst, Intolerance to Cold, Intolerance to Heat, Unexplained Weight Gain, Unexplained Weight Loss, Other Hematology/Lymphatic: denies: No Symptoms, Easily Bruised, Excessive Bleeding, Swollen Glands, Other Pain Intensity: 5 Physical Examination Vital Signs: Vital Signs Temperature 100.6 F H 03/19/17 18:37 Pulse Rate 86 03/19/17 18:37 Respiratory Rate 18 03/19/17 18:37 Blood Pressure 116/64 03/19/17 18:37 O2 Sat by Pulse Oximetry (%) 95 03/19/17 18:37 Constitutional: Yes: Well Nourished, Anxious Eyes: Yes: WNL HENT: Yes: WNL, Atraumatic Neck: Yes: WNL Cardiovascular: Yes: Regular Rate and Rhythm Respiratory: Yes: Regular, CTA Bilaterally Gastrointestinal: Yes: Soft, Hypoactive Bowel Sounds, Tenderness (right upper quadrant abdominal pain with guarding but soft and with bowel sounds) ...Rectal Exam: Yes: Deferred Renal/: Yes: WNL Musculoskeletal: Yes: WNL Extremities: Yes: WNL Integumentary: Yes: WNL Neurological: Yes: Alert, Oriented ...Motor Strength: WNL Psychiatric: Yes: Alert, Oriented Imaging - Results Cat Scan: Report Reviewed (Thickened slightly distended GB but no stones seen) Ultrasound: Report Reviewed (small tiny stones with GB wall thickening and dilated CBD to 1.2 cm but no pericholecystic fluid) Problem List - Problems (1) Cholecystitis Assessment/Plan: The patient presents with signs/symptoms of acute cholecystitis with low grade fever and elevated WBC but normal LFT's with normal bilirubin and lipase. CT scan and ultrasound c/w acute cholecystitis with thickened GB wall but no pericholecystic fluid. Exam with some guarding and right upper quadrant abdominal pain. Abdomen soft with hypoactive bowel sound however. Plan to keep NPO for now and place on levoquin and give dilaudid for pain. Can give mirilax for constipation. Will follow . Repeat CBC with chemistry in AM. Code(s): K81.9 - CHOLECYSTITIS, UNSPECIFIED
--- NOTE | 2017-03-19 21:44 | HP ---
CHIEF COMPLAINT: abdominal pain PCP: Carlie HISTORY OF PRESENT ILLNESS: This is a 46 year old male with a past medical history of substance abuse, GERD , constipation, PTSD, agoraphobia, Hep C who presented to the emergency department with a 4 day history of abdominal pain with vomiting. Denies diarrhea. Reports last good BM about a week ago, has had a few small BMs. Pt denies chest pain, SOB, KOVACS. Upon exam, no vomiting, reports pain as generalized , unable to pinpoint pain. ER course was notable for: (1) WBC 14.5 (2) CT c/w cholecystitis (3) US c/w cholecystitis Recent Travel: pt denies PAST MEDICAL HISTORY: GERD constipation PTSD with agoraphobia, "mental breakdown about 6 months ago" Hepatitis C (has not received any tx) PAST SURGICAL HISTORY: umbilical hernia repair Social History: Smokin/2 PPD Alcohol: pt denies Drugs: marijuana Family History: mother alive, renal disease, "heart trouble" but denies [place] father alive and well, no medical problems siblings no medical problems one son no medical problems Allergies No Known Allergies Allergy (Verified 03/19/17 11:03) HOME MEDICATIONS: 3 Medication Instructions Recorded Buspirone HCl [Buspar -] 10 mg PO TID 03/19/17 Clonidine HCl [Catapres -] 0.2 mg PO BID 03/19/17 Methadone [Dolophine -] 0 mg PO DAILY 03/19/17 Quetiapine Fumarate [Seroquel -] 225 mg PO HS 03/19/17 REVIEW OF SYSTEMS CONSTITUTIONAL: Absent: fever, chills, diaphoresis, generalized weakness, malaise, loss of appetite, weight change HEENT: Absent: rhinorrhea, nasal congestion, throat pain, throat swelling, difficulty swallowing, mouth swelling, ear pain, eye pain, visual changes CARDIOVASCULAR: Absent: chest pain, syncope, palpitations, irregular heart rate, lightheadedness , peripheral edema RESPIRATORY: Absent: cough, shortness of breath, dyspnea with exertion, orthopnea, wheezing, stridor, hemoptysis GASTROINTESTINAL: Present: abdominal pain, abdominal distension, nausea, vomiting Absent: diarrhea, constipation, melena, hematochezia GENITOURINARY: Absent: dysuria, frequency, urgency, hesitancy, hematuria, flank pain, genital pain MUSCULOSKELETAL: Absent: myalgia, arthralgia, joint swelling, back pain, neck pain SKIN: Absent: rash, itching, pallor HEMATOLOGIC/IMMUNOLOGIC: Absent: easy bleeding, easy bruising, lymphadenopathy, frequent infections ENDOCRINE: Absent: unexplained weight gain, unexplained weight loss, heat intolerance, cold intolerance NEUROLOGIC: Absent: headache, focal weakness or paresthesias, dizziness, unsteady gait, seizure, mental status changes, bladder or bowel incontinence PSYCHIATRIC: Absent: anxiety, depression, suicidal or homicidal ideation, hallucinations. PHYSICAL EXAMINATION Vital Signs - 24 hr 3 03/19/17 03/19/17 03/19/17 03/19/17 11:03 11:46 17:41 18:37 Temperature 98 F 98.2 F 100.6 F H Pulse Rate 91 H Pulse Rate [ 85 88 86 Left] Respiratory 18 16 18 Rate Blood Pressure 172/104 Blood Pressure 168/87 158/97 116/64 [Right Arm] O2 Sat by Pulse 100 96 95 Oximetry (%) GENERAL: Awake, alert, and fully oriented, in no acute distress. HEAD: Normal with no signs of trauma. EYES: Pupils equal, round and reactive to light, extraocular movements intact, sclera anicteric, conjunctiva clear. No lid lag. EARS, NOSE, THROAT: Ears normal, nares patent, oropharynx clear without exudates. Moist mucous membranes. NECK: Normal range of motion, supple without lymphadenopathy, JVD, or masses. LUNGS: Breath sounds equal, clear to auscultation bilaterally. No wheezes, and no crackles. No accessory muscle use. HEART: Regular rate and rhythm, normal S1 and S2 without murmur, rub or gallop. ABDOMEN: Soft, hypoactive bowel sounds, no guarding, no rebound, no masses. No hepatomegaly or splenomegaly. generalized tenderness, softly distended, hypertympanic MUSCULOSKELETAL: Normal range of motion at all joints. No bony deformities or tenderness. No CVA tenderness. UPPER EXTREMITIES: 2+ pulses, warm, well-perfused. No cyanosis. No clubbing. No peripheral edema. LOWER EXTREMITIES: 2+ pulses, warm, well-perfused. No calf tenderness. No peripheral edema. NEUROLOGICAL: Cranial nerves II-XII intact. Normal speech. Normal gait. PSYCHIATRIC: Cooperative. Good eye contact. Appropriate mood and affect. SKIN: Warm, dry, normal turgor, no rashes or lesions noted, normal capillary refill. Laboratory Results - last 24 hr 3 03/19/17 03/19/17 03/19/17 03/19/17 11:15 11:54 12:35 17:05 WBC 14.5 H RBC 4.64 Hgb 13.2 Hct 39.0 MCV 84.0 MCHC 33.8 RDW 12.2 Plt Count 282 MPV 7.6 Neutrophils % 86.7 H Lymphocytes % 8.4 Monocytes % 2.9 L Eosinophils % 0.3 Basophils % 1.7 INR 1.07 Sodium 134 L Potassium 4.1 Chloride 97 L Carbon Dioxide 30 H Anion Gap 7 L BUN 16 Creatinine 1.0 Creat Clearance w eGFR > 60 Random Glucose 155 H Calcium 8.6 Total Bilirubin 0.6 AST 23 ALT 25 Alkaline Phosphatase 83 Total Protein 7.2 Albumin 3.7 Lipase 25 Urine Color Yellow Urine Appearance Sl cloudy Urine pH 6.5 Ur Specific [place] 1.025 Urine Protein Trace Urine Glucose (UA) Trace Urine Ketones Negative Urine Blood Negative Urine Nitrite Negative Urine Bilirubin Negative Urine Urobilinogen 1.0 e.u/dl Ur Leukocyte Esterase Negative Blood Type O POSITIVE Antibody Screen Negative Radiology Results ABDOMEN FLAT UPRIGHT Rule out obstruction versus constipation. 5 x-rays of the abdomen, The lung bases are clear. No evidence of intestinal obstruction. No evidence of dilated loops of small bowel, colon. Air and fecal debris noted in the colon. Air and fecal debris noted in colon. Mild scoliosis is seen in the lower thoracic, lumbosacral spine. Intact visualized osseous structures. Right pelvic phlebolith versus stone in the distal right ureter. Impression. No evidence of intestinal obstruction. Reported By: Griffni Hammond MD 03/19/[address]/ABDOMEN PELVIS CT WITH CONTR Abdominal pain and vomiting CT scan of the abdomen and pelvis following oral and intravenous contrast. Coronal and sagittal reformatted images were obtained 100 cc of Omnipaque 350 was intravenously injected Comparison: None available Visualized lung base appears unremarkable and the heart is within normal limits in size. Evaluation of the liver, spleen, pancreas, both adrenal glands and both kidneys appear unremarkable. Gallbladder is slightly over distended with wall thickening and a cholecystic edema. No gross gallstones are identified. Dilated common hepatic duct measuring 13 mm in diameter and slightly dilated common bile duct measuring 7 mm, distally. No gross intraductal stone is identified. No gross dilatation of the intrahepatic bile ducts. No gross intraductal stone is identified. Partially distended stomach without wall thickening. There is no evidence of small bowel obstruction. Normal-appearing terminal ileum. The appendix is not identified. No enlarged retroperitoneal or mesenteric lymph nodes are identified. Partially distended urinary bladder without wall thickening. Normal size prostate gland. Perirectal and pericecal fat is clear. Visualized osseous structures appear intact except for minimal retrolisthesis of L4 over L5, likely degenerative. Mild central disc bulge with posterior spur formation together with mild bilateral facet and ligamentum hypertrophy is resulting in at least mild degenerative spine canal stenosis. Correlate clinically and if needed further evaluation with a nonemergent MRI could be obtained Impression: Findings consistent with acute cholecystitis without gross evidence of gallstones. Dilated common hepatic duct and mild dilatation of the distal common bile duct measuring 7 mm. Please correlate with gallbladder ultrasound. Reported By: Tessie Rendon MD 03/19/17 1659 US/GALLBLADDER US Right upper quadrant pain Right upper abdomen ultrasound. Compared to prior CT scan of the abdomen pelvis done earlier on the same date. The liver is borderline in size measuring 18 cm in sagittal length with a slightly coarse echotexture. Limited visualization of an adequately distended gallbladder with diffuse thickening of its wall measuring 6.6 mm in thickness. It is filled with multiple echogenic densities consistent with a sludge/ cholesterol granules and likely tiny stones. No gross pericholecystic free fluid is identified on the submitted images. Proximal portion of the common bile duct measures 1.2 cm in diameter. No intrahepatic bile duct dilatation is seen. The right kidney measures 10.1 cm sagittal length and appears unremarkable. Pancreas was not visualized. Visualized portion of the proximal abdominal aorta and inferior vena cava appear unremarkable. IMPRESSION: Findings again consistent with acute cholecystitis. Gallbladder is filled with multiple small echogenic densities consistent with a sludge/ cholesterol granules and likely tiny stones. No gross pericholecystic free fluid is seen. Dilated proximal portion of the common bile duct measuring 1.2 cm in diameter. Nonvisualization of the pancreas. Probable mild fatty infiltration of the liver Reported By: Tessie Rendon MD 03/19/17 1849 CHEST X-RAY PORTABLE* Baseline. Portable chest x ray, AP sitting A frontal view of the chest was obtained. The cardiac silhouette is within normal limits in size. The lung is clear. Mediastinum and visualized osseous structures appear intact . Impression: Unremarkable examination. Reported By: Tessie Rendon MD 03/19/17 1839 ECG: NSR, rate 87 QTC 476 ASSESSMENT/PLAN: 46yM with PMH GERD, Hep C, chronic constipation, substance abuse (methadone dependent), PTSD, agoraphobia presented with abdominal pain and vomiting. He is being admitted for cholecystitis. Acute cholecystitis - cont flagyl and ceftriaxone - surgical consult appreciated - npo for now, may trial clear liquids in am if better Constipation - Miralax now and daily methadone dependence - nurses to verify dose in AM PTSD/Agoraphobia - cont home medications DVT PPX - low risk, age less than 50, fully ambulatory. encouraged to ambulate FEN - NS @ 125cc/hr - BMP in am - NPO for now Dispo: Pt currently requires inpatient management of his emergent condition. Visit type - Emergency Visit Emergency Visit: Yes ED Registration Date: 03/19/17 Care time: The patient presented to the Emergency Department on the above date and was hospitalized for further evaluation of their emergent condition. - New Patient This patient is new to me today: Yes Date on this admission: 03/19/17 - Critical Care Critical Care patient: No
[2017-03-19] MEDS ORDERED: PANTOPRAZOLE SODIUM 40 MG in SODIUM CHLORIDE 100 ML IVPB SCH (22:00)
[2017-03-19] MEDS ORDERED: METOCLOPRAMIDE HCL INJECTION 10 MG/2 ML VIAL IVPB PRN (22:05)
[2017-03-19] MEDS: HYDROmorphone HCL CARPU-JECT 1 MG/1 ML DISP.SYRIN IVPB PRN (22:08)
[2017-03-19] MEDS: POLYETHYLENE GLYCOL 3350 119 GM BTL PO SCH (22:10)
[2017-03-19] MEDS ORDERED: QUEtiapine FUMARATE 200 MG TABLET PO SCH (22:15)
[2017-03-19] MEDS: QUETIAPINE FUMARATE PO SCH (23:01)
[2017-03-20] MEDS: HYDROmorphone HCL CARPU-JECT 1 MG/1 ML DISP.SYRIN IVPB PRN ×3 (02:00→20:25)
[2017-03-20] MEDS: METRONIDAZOLE 500 MG PREMIXED 100 ML IVPB SCH ×2 (02:30→10:29)
[2017-03-20] MEDS: busPIRone HCL 5 MG TABLET PO SCH ×3 (07:01→21:16)
--- NOTE | 2017-03-20 08:08 | EKG ---
Test Reason : Blood Pressure : / mmHG Vent. Rate : 087 BPM Atrial Rate : 087 BPM P-R Int : 154 ms QRS Dur : 088 ms QT Int : 396 ms P-R-T Axes : 009 -19 007 degrees QTc Int : 476 ms NORMAL SINUS RHYTHM NORMAL ECG WHEN COMPARED WITH ECG OF 30-JAN-2017 21:17, NO SIGNIFICANT CHANGE WAS FOUND Confirmed by MIGEL BARRIOS MD ([id number]) on 03/20/2017 8:07:38 AM Referred By: MD ROE Confirmed By:MIGEL BARRIOS MD
[2017-03-20 08:57] LABS: ALBUMIN 3.1 g/dl (3.5-5.0); ALK PHOS 76 U/L (32-92); AMYLASE 17 U/L (25-125); ANION GAP 9 (8-16); BILIRUBIN,TOTAL 0.7 mg/dl (0.2-1.0); CALCIUM 8.4 mg/dl (8.4-10.2); CO2 30 mmol/L (22-28); CREATININE 0.9 mg/dl (0.6-1.3); GLUCOSE,RANDOM 137 mg/dl (74-106); MAGNESIUM 1.8 mg/dL (1.8-2.4); PHOSPHOROUS 3.6 mg/dl (2.5-4.6); SGOT/AST 22 U/L (10-42); SGPT/ALT 20 U/L (10-40); TOT PROT 6.4 g/dl (6.4-8.3)
[2017-03-20 09:59] LABS: BASOPHIL 0.4 % (0-2.0); MCH 27.9 pg (25.7-33.7); MCHC 32.7 g/dl (32.0-35.9); MEAN CELL VOLUME 85.5 fl (80-96); MEAN PLT VOLUME 8.6 fl (7.5-11.1); NEUTROPHILS 84.2 % (42.8-82.8); PLATELET COUNT 251 K/MM3 (134-434); RDW 12.6 % (11.9-15.9); WHITE BLOOD COUNT 17.2 K/mm3 (4.0-10.8)
[2017-03-20] MEDS ORDERED: MAGNESIUM CITRATE 300 ML BOTTLE PO ONE ×2 (10:00→11:15)
[2017-03-20] MEDS ORDERED: METHADONE HCL 10 MG TABLET PO SCH (10:00)
[2017-03-20] MEDS: CEFTRIAXONE 50 ML IVPB SCH (10:29)
[2017-03-20] MEDS: cloNIDine HCL 0.1 MG TABLET PO SCH ×2 (10:29→21:16)
[2017-03-20] MEDS: PANTOPRAZOLE SODIUM 100 ML IVPB SCH (10:29)
[2017-03-20] MEDS: POLYETHYLENE GLYCOL 3350 119 GM BTL PO SCH (10:30)
[2017-03-20] MEDS: METHADONE HCL 10 MG TABLET PO SCH (10:52)
--- NOTE | 2017-03-20 10:52 | PN ---
Physical Exam: SUBJECTIVE: Patient seen and examined, patient reports ongoing abdominal pain, patient reports decreased appetite. OBJECTIVE: patient is a 46 year old male with a past medical history of substance abuse (methadone dependent), GERD, constipation, PTSD, agoraphobia, Hep C. patient was admitted from the emergency department for acute cholecystitis. Vital Signs Period Temp Pulse Resp BP Sys/Nova Pulse Ox Last 24 Hr 98.8 F-99.7 F 92-93 18-20 135-143/64-93 96-96 GENERAL: The patient is awake, alert, and fully oriented, in no acute distress. HEAD: Normal with no signs of trauma. EYES: PERRL, extraocular movements intact, sclera anicteric, conjunctiva clear. No ptosis. ENT: Ears normal, nares patent, oropharynx clear without exudates, moist mucous membranes. NECK: Trachea midline, full range of motion, supple. LUNGS: Breath sounds equal, clear to auscultation bilaterally, no wheezes, no crackles, no accessory muscle use. HEART: Regular rate and rhythm, S1, S2 without murmur, rub or gallop. ABDOMEN: Soft, moderate tenderness to the right upper quadrant, nondistended, hypoactive bowel sounds, no guarding, + grimm's sign, no hepatosplenomegaly, no masses. EXTREMITIES: 2+ pulses, warm, well-perfused, no edema. NEUROLOGICAL: Cranial nerves II through XII grossly intact. Normal speech, gait not observed. PSYCH: Normal mood, normal affect. SKIN: Warm, dry, normal turgor, no rashes or lesions noted Laboratory Results - last 24 hr 03/20/17 03/20/17 07:00 07:00 WBC 17.2 H RBC 4.65 Hgb 13.0 Hct 39.8 MCV 85.5 MCHC 32.7 RDW 12.6 Plt Count 251 MPV 8.6 D Neutrophils % 84.2 H Lymphocytes % 7.4 L Monocytes % 8.0 D Eosinophils % 0.0 D Basophils % 0.4 Sodium 134 L Potassium 4.2 Chloride 95 L Carbon Dioxide 30 H Anion Gap 9 BUN 10 D Creatinine 0.9 Creat Clearance w eGFR > 60 Random Glucose 137 H Calcium 8.4 Phosphorus 3.6 Magnesium 1.8 Total Bilirubin 0.7 AST 22 ALT 20 Alkaline Phosphatase 76 Total Protein 6.4 Albumin 3.1 L Total Amylase 17 L Lipase 22 Active Medications Generic Name Dose Route Start Last Admin Trade Name Freq PRN Reason Stop Dose Admin Buspirone HCl 10 mg 03/20/17 06:00 03/20/17 07:01 Buspar - PO 10 mg TID CHELA Administration Clonidine 0.2 mg 03/20/17 10:00 03/20/17 10:29 Catapres - PO 0.2 mg BID CHELA Administration Hydromorphone HCl 1 mg 03/19/17 21:58 03/20/17 02:00 Dilaudid Injection - IVPB 1 mg Q4H PRN Administration PAIN Ceftriaxone Sodium 50 mls @ 100 mls/hr 03/19/17 18:45 03/20/17 10:29 Rocephin 1gm Ivpb (Pre-Docked) IVPB 100 mls/hr DAILY CHELA Administration Sodium Chloride 1,000 mls @ 125 mls/hr 03/19/17 19:15 03/19/17 20:12 Normal Saline - IV 125 mls/hr ASDIR CHELA Administration Pantoprazole Sodium 100 mls @ 200 mls/hr 03/19/17 22:48 03/20/17 10:29 Protonix 40mg Ivpb (Pre-Docked) IVPB 200 mls/hr DAILY CHELA Administration Magnesium Citrate 300 ml 03/20/17 11:15 03/20/17 10:38 Citroma - PO 03/20/17 11:16 300 ml ONCE ONE Administration Methadone HCl 85 mg 03/20/17 10:45 Dolophine - PO 03/21/17 10:44 DAILY CHELA Metoclopramide HCl 10 mg 03/19/17 22:05 Reglan Injection - IVPB Q6H PRN NAUSEA AND/OR VOMITING Piperacillin Sod/Tazobactam Sod 3.375 gm 03/20/17 11:00 Zosyn 3.375gm Ivpb (Pre-Docked) IVPB Q8H-IV CHELA Protocol Polyethylene Glycol 17 gm 03/19/17 22:00 03/20/17 10:30 Miralax (For Daily Use) - PO 17 gm DAILY CHELA Administration Quetiapine Fumarate 200 mg/ 225 mg 03/19/17 22:45 03/19/17 23:01 Quetiapine Fumarate 25 mg PO 225 mg HS CHELA Administration Radiology Results ABDOMEN FLAT UPRIGHT Impression. No evidence of intestinal obstruction. Reported By: Griffin Hammond MD 03/19/[address]/ABDOMEN PELVIS CT WITH CONTR Impression: Findings consistent with acute cholecystitis without gross evidence of gallstones. Dilated common hepatic duct and mild dilatation of the distal common bile duct measuring 7 mm. Please correlate with gallbladder ultrasound. Reported By: Tessie Rendon MD 03/19/17 1659 US/GALLBLADDER US Right upper quadrant pain Right upper abdomen ultrasound. IMPRESSION: Findings again consistent with acute cholecystitis. Gallbladder is filled with multiple small echogenic densities consistent with a sludge/ cholesterol granules and likely tiny stones. No gross pericholecystic free fluid is seen. Dilated proximal portion of the common bile duct measuring 1.2 cm in diameter. Nonvisualization of the pancreas. Probable mild fatty infiltration of the liver Reported By: Tessie Rendon MD 03/19/17 1849 CHEST X-RAY PORTABLE* Baseline. Portable chest x ray, AP sitting Reported By: Tessie Rendon MD 03/19/17 1839 ECG: NSR, rate 87 QTC 476 ASSESSMENT/PLAN: 1)Acute cholecystitis - low grade temp noted, wbc trending upward, with left shift, d/c rocephin and flagyl, start zosyn, appreciate ID (Jacques) input for abx approval - ct scan and ultrasound reviewed, concerning for CBD measuring 1.2 cm, MRCP ordered R/O choleductholithasis - keep NPO-->IVF - appreciate the input of general surgery Luis/ 2) psych opiate dependence - methadone dependent, methadone dose verified with [facility] PTSD/agorophobia - continue buspar, seroquel and clonidine PPX - oob, scd/mary - protonix FEN - NS @ 125cc/hr - BMP in am - NPO for now Dispo: Pt currently requires inpatient management of his emergent condition. Visit type - Emergency Visit Emergency Visit: Yes ED Registration Date: 03/19/17 Care time: The patient presented to the Emergency Department on the above date and was hospitalized for further evaluation of their emergent condition. - New Patient This patient is new to me today: Yes Date on this admission: 03/20/17 - Critical Care Critical Care patient: No
[2017-03-20] MEDS ORDERED: PIPERACILLIN/TAZOB 3.375 GM/50 ML PRE-DOCKED IVPB SCH (11:00)
[2017-03-20] MEDS: PIPERACILLIN/TAZOB 4.5 GM 100 ML IVPB SCH ×2 (12:25→18:32)
[2017-03-20] MEDS: LACTOBACILLUS ACIDOPHILUS 1 EACH TAB (FP) PO SCH (12:26)
[2017-03-20] MEDS ORDERED: SODIUM CHLORIDE 0.9% 1000 ML INFUS.BAG IV ONE (17:32)
--- NOTE | 2017-03-20 17:47 | CONSULT ---
Consult Consult Specialty:: General Surgery Referred by:: Lolita Hernandez Reason for Consultation:: acute cholecystitis - History of Present Illness Chief Complaint: abdominal pain, more RUQ, with n/v History of Present Illness: 46yoM with hep C, HTN, psychiatric issues, polysubstance use on methadone, has experienced central/upper abdominal pain on and off over the last two years, lasting hours to sometimes days but usually resolving on its own. It is not always related to eating. He also vomits yellow-green about twice a week if he does not eat before he gets hungry. Thursday and Thursday of this week, he had the pain, which was not going away, but got worse on Thursday to the point he could not climb stairs. He sometimes only eats once a day with an evening snack , and has had less appetite in last few days. Yesterday, he vomited several times and felt feverish, prompting him to come to ER. He has not kept down food but did tolerate some water/fluids. He has also been constipated in general, and has had very little stool over the last few weeks, but did have a small BM 2 days ago. The pain also got worse toward the upper right quadrant, and it hurts there when he breathes. He also has some right shoulder pain. In the ER, he had leukocytosis and imaging (CT and US) consistent with acute cholecystitis and was admitted to medicine. Fluids and antibiotics were started , and he has been NPO except meds. LFTs are normal, lipase was normal. CBD is dilated, and MRCP today confirms cholecystitis with 2.3cm stone in gallbladder neck, dilated CBD, but distal aspect could not be visualized. His wbc went up today from 12 to 17, and his temp has been in the 99s. He is getting his usual methadone plus pain meds prn. - History Source History Provided By: Patient Limitations to Obtaining History: No Limitations - Past Medical History Cardio/Vascular: Yes: HTN Pulmonary: No: Asthma, COPD Gastrointestinal: Yes: Constipation Hepatobiliary: Yes: Hepatitis C (for many years, never treated) Psych: Yes: Addictions (heroin IV in past - on methadone x 2 years, tob 1/2ppd x 20y, MJ daily, last 2 days ago), Anxiety, Other (PTSD, agoraphobia) - Past Surgical History Past Surgical History: Yes: Hernia Repair (umbilical hernia repair w/mesh 2009 at [facility]) - Alcohol/Substance Use Hx Alcohol Use: No History of Substance Use: reports: None, Heroin (IV in past, not for years), Marijuana (daily, last 2 days ago) - Smoking History Smoking history: Current every day smoker Have you smoked in the past 12 months: Yes Aproximately how many cigarettes per day: 10 Home Medications - Allergies Allergies/Adverse Reactions: Allergies Allergy/AdvReac Type Severity Reaction Status Date / Time No Known Allergies Allergy Verified 03/19/17 11:03 - Home Medications Home Medications: Ambulatory Orders Buspirone HCl [Buspar -] 10 mg PO TID 03/19/17 Clonidine HCl [Catapres -] 0.2 mg PO BID 03/19/17 Methadone [Dolophine -] 0 mg PO DAILY 03/19/17 Quetiapine Fumarate [Seroquel -] 200 mg PO HS 03/19/17 Clonazepam [Clonazepam] 1 tab PO TID 03/20/17 Family Disease History - Family Disease History Family Disease History: Diabetes: Mother (CHF, HTN, HLD, borderline DM), Heart Disease: Mother, Other: Father (NO CONTACT), Mother, Sister Review of Systems - Review of Systems Constitutional: reports: Diaphoresis (when came to ER), Fever (subjective yesterday), Loss of Appetite. denies: Chills Eyes: denies: Blurred Vision, Double Vision HENT: reports: Nasal Congestion (last 2 days). denies: Difficult Swallowing, Throat Pain Neck: denies: Pain on Movement, Stiffness Cardiovascular: denies: Chest Pain, Palpitations Respiratory: reports: SOB on Exertion (occasionally). denies: Cough, SOB Gastrointestinal: reports: Abdominal Pain (over two years - sometimes lasts for hours to days at a time), Constipation (uses senna and mag citrate at home prn) , Nausea (with hpi), Vomiting (with hpi). denies: Diarrhea Genitourinary: reports: Other (nocturia 1-2x). denies: Burning, Dysuria Musculoskeletal: denies: Back Pain, Joint Pain Integumentary: denies: Change in Color, Rash Neurological: denies: Dizziness, Headache Endocrine: denies: Unexplained Weight Gain, Unexplained Weight Loss Psychiatric: reports: Anxiety, Depression, Other (nervous breakdown last year) Physical Exam Vital Signs: Vital Signs Temperature 99 F 03/20/17 14:00 Pulse Rate 106 H 03/20/17 14:00 Respiratory Rate 18 03/20/17 14:00 Blood Pressure 130/86 03/20/17 14:00 O2 Sat by Pulse Oximetry (%) 96 03/20/17 09:00 Constitutional: Yes: Well Nourished, No Distress, Anxious (mildly). No: Diaphoresis Eyes: Yes: Conjunctiva Clear, EOM Intact HENT: Yes: Atraumatic, Normocephalic, Other (mouth dry, missing multiple teeth) Cardiovascular: Yes: Regular Rate and Rhythm. No: Murmur Respiratory: Yes: Regular, Wheezes (end-expiratory bilaterally, soft), Other ( pain with deep breathing in RUQ) Gastrointestinal: Yes: Soft, Abdomen, Obese, Hypoactive Bowel Sounds, Tenderness (mainly RUQ, epigastric; mild LUQ and RLQ with upward radiation; no rebound/guarding), Other (healed supraumbilical transverse scar with palpable ? mesh beneath and possible small recurrent umbilical hernia). No: Palpable Mass ...Rectal Exam: Yes: Deferred Renal/: No: CVA Tenderness - Left, CVA Tenderness - Right Musculoskeletal: No: Back Pain, Joint Swelling Extremities: No: Cool, Cyanosis Edema: No Integumentary: No: Jaundice, Rash Neurological: Yes: Alert, Oriented Psychiatric: Yes: Alert, Oriented Labs: CBC, BMP 03/20/17 07:00 03/20/17 07:00 CMP Sodium 134 mmol/L (136-145) L 03/20/17 07:00 Potassium 4.2 mmol/L (3.5-5.1) 03/20/17 07:00 Chloride 95 mmol/L (98-107) L 03/20/17 07:00 Carbon Dioxide 30 mmol/L (22-28) H 03/20/17 07:00 Anion Gap 9 (8-16) 03/20/17 07:00 BUN 10 mg/dl (7-18) D 03/20/17 07:00 Creatinine 0.9 mg/dl (0.6-1.3) 03/20/17 07:00 Creat Clearance w eGFR > 60 (>60) 03/20/17 07:00 Random Glucose 137 mg/dl (74-106) H 03/20/17 07:00 Calcium 8.4 mg/dl (8.4-10.2) 03/20/17 07:00 Phosphorus 3.6 mg/dl (2.5-4.6) 03/20/17 07:00 Magnesium 1.8 mg/dL (1.8-2.4) 03/20/17 07:00 Total Bilirubin 0.7 mg/dl (0.2-1.0) 03/20/17 07:00 AST 22 U/L (10-42) 03/20/17 07:00 ALT 20 U/L (10-40) 03/20/17 07:00 Alkaline Phosphatase 76 U/L (32-92) 03/20/17 07:00 Total Protein 6.4 g/dl (6.4-8.3) 03/20/17 07:00 Albumin 3.1 g/dl (3.5-5.0) L 03/20/17 07:00 Total Amylase 17 U/L (25-125) L 03/20/17 07:00 Lipase 22 U/L (22-51) 03/20/17 07:00 INR, PTT INR 1.07 (0.82-1.09) 03/19/17 17:05 Imaging - Results Cat Scan: Report Reviewed Ultrasound: Report Reviewed (distended gallbladder with stones/sludge, wall thickening, no pericholecystic fluid, enlarged CBD) MRI: Report Reviewed (limited study; distended GB with 2.3cm stone in neck, wall thickening, pericholecystic edema tracking inferiorly anterior to hepatic flexure of colon; diffusely dilated CBD 1.1cm prox, 0.9cm distal - most distal portion not visualized - ?ampullary edema or stricture? ; 1.2cm medial left sided extrapleural nodule adjacent to left T8 neural foramina of unclear etiology/significance) Problem List - Problems (1) Calculus of gallbladder with acute cholecystitis without obstruction Assessment/Plan: maintain NPO/IVF except meds with sips H2O agree with antibiotics ok to continue home meds trend labs preop optimization for lap poss open cholecystectomy likely Thursday recommend GI consultation re: MRCP findings - ?stricture, dilated CBD despite normal LFTs, h/o hep C consider albuterol nebs prn for wheezing incentive spirometry to start preop GI/DVT prophylaxis pain meds prn R/B/A of laparoscopic possible open marga discussed with patient with family at bedside including but not limited to bleeding, infection, bile leak, injury to bile duct or other nearby structures, anesthesia, ; alternatives including no surgery, delayed/elective surgery - risks of recurrent cholecystitis, pancreatitis, sepsis. Patient agreeable to surgery and will signed informed consent for same. Will plan for likely Thursday, pending GI evaluation and clinical course. Discussed with Lolita Hernandez. Code(s): K80.00 - CALCULUS OF GALLBLADDER W ACUTE CHOLECYST W/O OBSTRUCTION (2) Common bile duct dilation Assessment/Plan: see above Code(s): K83.8 - OTHER SPECIFIED DISEASES OF BILIARY TRACT (3) Bipolar disorder Assessment/Plan: PTSD, agoraphobia (per pt), bipolar per chart history continue home meds no acute issues at this time Code(s): F31.9 - BIPOLAR DISORDER, UNSPECIFIED Qualifiers: Active/Remission status: remission status unspecified Qualified Code (s): F31.9 - Bipolar disorder, unspecified (4) Constipation Assessment/Plan: Pt had mag citrate earlier. Last BM 2d ago. Consider suppository prn. Oral contrast from CT may facilitate passage of stool. Code(s): K59.00 - CONSTIPATION, UNSPECIFIED Qualifiers: Constipation type: drug induced constipation Qualified Code(s): K59.03 - Drug induced constipation (5) Hypertension Assessment/Plan: continue clonidine Code(s): I10 - ESSENTIAL (PRIMARY) HYPERTENSION Qualifiers: Hypertension type: essential hypertension Qualified Code(s): I10 - Essential (primary) hypertension (6) Methadone maintenance therapy patient Assessment/Plan: home dose confirmed and continued Code(s): F11.20 - OPIOID DEPENDENCE, UNCOMPLICATED (7) Polysubstance abuse Assessment/Plan: daily tobacco and marijuana user consider nicotine patch alb nebs prn Code(s): F19.10 - OTHER PSYCHOACTIVE SUBSTANCE ABUSE, UNCOMPLICATED
[2017-03-20] MEDS ORDERED: BISACODYL 10 MG SUPP.RECT RC PRN (17:50)
[2017-03-20] MEDS ORDERED: ALBUTEROL SO4 2.5/IPRATROPIUM 0.5 INH SOL 3 ML VIAL.NEB. NEB PRN (17:50)
--- NOTE | 2017-03-20 18:09 | PN ---
Progress Note (short form) - Note Progress Note: ID Consult dictated Acute cholecystitis Possible biliary sepsis Pending cultures, empiric coverage biliary pathogens with zosyn HIV testing (pt gives consent)
[2017-03-20] MEDS: SODIUM CHLORIDE 1,000 ML IV SCH (18:32)
[2017-03-20] MEDS ORDERED: PT OWN MED DRAWER 7, Y5N ONE (21:14)
[2017-03-20] MEDS: clonazePAM 0.5 MG TABLET PO SCH (21:16)
[2017-03-20] MEDS: QUETIAPINE FUMARATE PO SCH (21:17)
[2017-03-21] MEDS: SODIUM CHLORIDE 1,000 ML IV SCH ×3 (00:54→21:16)
[2017-03-21] MEDS: HYDROmorphone HCL CARPU-JECT 1 MG/1 ML DISP.SYRIN IVPB PRN (00:56)
[2017-03-21] MEDS ORDERED: PIPERACILLIN/TAZOBACTAM 4.5 GM VIAL IVPB ONE ×4 (01:09→17:07)
[2017-03-21] MEDS ORDERED: DEXTROSE 5%-WATER 100 ML IVPB ONE ×4 (01:09→17:07)
[2017-03-21] MEDS: PIPERACILLIN/TAZOB 4.5 GM 4.5 GM in DEXTROSE 5%-WATER 100 ML IVPB SCH ×3 (01:37→18:11)
[2017-03-21] MEDS: clonazePAM 0.5 MG TABLET PO SCH ×3 (06:14→21:10)
[2017-03-21] MEDS: busPIRone HCL 5 MG TABLET PO SCH ×3 (06:14→21:10)
[2017-03-21 07:44] LABS: BASOPHIL 0.2 % (0-2.0); EOSINOPHIL 0.3 % (0-4.5); MCH 28.4 pg (25.7-33.7); MCHC 34.1 g/dl (32.0-35.9); MEAN CELL VOLUME 83.1 fl (80-96); NEUTROPHILS 80.8 % (42.8-82.8); PLATELET COUNT 212 K/MM3 (134-434); RDW 13.2 % (11.9-15.9); WHITE BLOOD COUNT 14.1 K/mm3 (4.0-10.0)
[2017-03-21 07:58] LABS: ALBUMIN 2.3 g/dl (3.4-5.0); ANION GAP 7 (8-16); CALCIUM 7.3 mg/dL (8.5-10.1); CO2 31 mmol/L (21-32); GLUCOSE,RANDOM 103 mg/dL (74-106); MAGNESIUM 2.5 mg/dL (1.8-2.4)
[2017-03-21 08:03] LABS: ALK PHOS 66 U/L (45-117); BILIRUBIN,TOTAL 0.6 mg/dL (0.2-1.0); CREATININE 0.9 mg/dL (0.7-1.3); PHOSPHOROUS 2.4 mg/dL (2.5-4.9); SGOT/AST 12 U/L (15-37); SGPT/ALT 16 U/L (12-78); TOT PROT 5.4 g/dl (6.4-8.2)
[2017-03-21] MEDS ORDERED: ACETAMINOPHEN 1000 MG/100 ML VIAL (NON FORMULARY) IVPB PRN (09:25)
--- NOTE | 2017-03-21 09:25 | PN ---
Progress Note, Physician History of Present Illness: Complains of diffuse abdominal pain No N/V No BM Temps down- afebrile MRCP C/W cholelithiasis, stone at GB neck - Current Medication List Current Medications: Active Medications Albuterol/Ipratropium (Duoneb -) 1 amp NEB Q6H PRN PRN Reason: SHORTNESS OF BREATH Last Admin: 03/20/17 20:08 Dose: 1 amp Bisacodyl (Dulcolax Suppository -) 10 mg RC PRN PRN PRN Reason: CONSTIPATION Buspirone HCl (Buspar -) 10 mg PO TID [facility] Last Admin: 03/21/17 06:14 Dose: 10 mg Clonazepam (Klonopin -) 0.5 mg PO TID [facility] Last Admin: 03/21/17 06:14 Dose: 0.5 mg Clonidine (Catapres -) 0.2 mg PO BID [facility] Last Admin: 03/20/17 21:16 Dose: 0.2 mg Hydromorphone HCl (Dilaudid Injection -) 1 mg IVPB Q4H PRN PRN Reason: PAIN Last Admin: 03/21/17 00:56 Dose: 1 mg Sodium Chloride (Normal Saline -) 1,000 mls @ 125 mls/hr IV ASDIR [facility] Last Admin: 03/21/17 00:54 Dose: 125 mls/hr Pantoprazole Sodium (Protonix 40mg Ivpb (Pre-Docked)) 100 mls @ 200 mls/hr IVPB DAILY [facility] Last Admin: 03/20/17 10:29 Dose: 200 mls/hr Piperacillin Sod/Tazobactam (Sod 4.5 gm/ Dextrose) 100 mls @ 200 mls/hr IVPB Q8H-IV [facility] PRN Reason: Protocol Last Admin: 03/21/17 01:37 Dose: 200 mls/hr Lactobacillus Acidophilus (Bacid -) 1 tab PO DAILY [facility] Last Admin: 03/20/17 12:26 Dose: 1 tab Methadone HCl (Dolophine -) 85 mg PO DAILY [facility] Stop: 03/21/17 10:44 Last Admin: 03/20/17 10:52 Dose: 85 mg Metoclopramide HCl (Reglan Injection -) 10 mg IVPB Q6H PRN PRN Reason: NAUSEA AND/OR VOMITING Quetiapine Fumarate 200 mg/ (Quetiapine Fumarate 25 mg) 225 mg PO HS [facility] Last Admin: 03/20/17 21:17 Dose: 225 mg - Objective Vital Signs: Vital Signs Temperature 98.9 F 03/21/17 06:00 Pulse Rate 80 03/21/17 06:00 Respiratory Rate 18 03/21/17 06:00 Blood Pressure 106/58 03/21/17 06:00 O2 Sat by Pulse Oximetry (%) 94 L 03/20/17 22:00 Constitutional: Yes: No Distress Eyes: Yes: Conjunctiva Clear Cardiovascular: Yes: Regular Rate and Rhythm, S1, S2 Respiratory: Yes: Diminished Gastrointestinal: Yes: Normal Bowel Sounds, Tenderness, Other (Abdomen is distended, tympanitic + RUQ tenderness) Edema: No Labs: CBC, BMP 03/21/17 06:00 03/21/17 06:00 INR, PTT INR 1.07 (0.82-1.09) 03/19/17 17:05 Assessment/Plan Acute cholecystitis Possible biliary sepsis Continue empiric coverage, biliary pathogens with zosyn
--- NOTE | 2017-03-21 09:49 | PN ---
Progress Note (short form) - Note Progress Note: Subjective: The patient was seen and examined at the bedside and is complaining of diffuse abdominal pain which he states has improved from yesterday MRCP with 2.3 cm stone in the neck of the gallbladder F/u GI consult for possible ERCP Current Medications Generic Name Dose Route Start Last Admin Trade Name Freq PRN Reason Stop Dose Admin Acetaminophen 1,000 mg 03/21/17 09:25 Ofirmev Injection - IVPB 03/22/17 01:26 Q8H PRN FEVER OR PAIN Albuterol/Ipratropium 1 amp 03/20/17 17:50 03/20/17 20:08 Duoneb - NEB 1 amp Q6H PRN Administration SHORTNESS OF BREATH Bisacodyl 10 mg 03/20/17 17:50 Dulcolax Suppository - RC PRN PRN CONSTIPATION Buspirone HCl 10 mg 03/20/17 06:00 03/21/17 06:14 Buspar - PO 10 mg TID [facility] Administration Clonazepam 0.5 mg 03/20/17 22:00 03/21/17 06:14 Klonopin - PO 0.5 mg TID [facility] Administration Clonidine 0.2 mg 03/20/17 10:00 03/20/17 21:16 Catapres - PO 0.2 mg BID [facility] Administration Sodium Chloride 1,000 mls @ 125 mls/hr 03/19/17 19:15 03/21/17 00:54 Normal Saline - IV 125 mls/hr ASDIR [facility] Administration Pantoprazole Sodium 100 mls @ 200 mls/hr 03/19/17 22:48 03/20/17 10:29 Protonix 40mg Ivpb (Pre-Docked) IVPB 200 mls/hr DAILY [facility] Administration Piperacillin Sod/Tazobactam 100 mls @ 200 mls/hr 03/21/17 01:02 03/21/17 01:37 Sod 4.5 gm/ Dextrose IVPB 200 mls/hr Q8H-IV [facility] Administration Protocol Lactobacillus Acidophilus 1 tab 03/20/17 11:00 03/20/17 12:26 Bacid - PO 1 tab DAILY [facility] Administration Methadone HCl 85 mg 03/20/17 10:45 03/20/17 10:52 Dolophine - PO 03/21/17 10:44 85 mg DAILY [facility] Administration Metoclopramide HCl 10 mg 03/19/17 22:05 Reglan Injection - IVPB Q6H PRN NAUSEA AND/OR VOMITING Quetiapine Fumarate 200 mg/ 225 mg 03/19/17 22:45 03/20/17 21:17 Quetiapine Fumarate 25 mg PO 225 mg HS [facility] Administration Objective: Vital Signs Period Temp Pulse Resp BP Sys/Nova Pulse Ox Last 24 Hr 98.0 F-99 F 80-106 17-18 106-139/55-93 94-96 Physical Exam: General: NAD, A&Ox3 Lungs: CTA bilaterally Heart: RRR, S1S2 Abd: Distended. Diffuse mild tenderness throughout. Normoactive bowel sounds Ext: Warm, well-perfused, 2+ DP/PT bilaterally Neuro: CN 2-12 intact CBCD WBC 14.1 K/mm3 (4.0-10.0) H D 03/21/17 06:00 RBC 3.82 M/mm3 (4.00-5.60) L 03/21/17 06:00 Hgb 10.8 GM/dL (11.7-16.9) L D 03/21/17 06:00 Hct 31.7 % (35.4-49) L D 03/21/17 06:00 MCV 83.1 fl (80-96) 03/21/17 06:00 MCHC 34.1 g/dl (32.0-35.9) 03/21/17 06:00 RDW 13.2 % (11.9-15.9) 03/21/17 06:00 Plt Count 212 K/MM3 (134-434) 03/21/17 06:00 MPV 8.0 fl (7.5-11.1) D 03/21/17 06:00 CMP Sodium 137 mmol/L (136-145) 03/21/17 06:00 Potassium 4.1 mmol/L (3.5-5.1) 03/21/17 06:00 Chloride 99 mmol/L (98-107) 03/21/17 06:00 Carbon Dioxide 31 mmol/L (21-32) 03/21/17 06:00 Anion Gap 7 (8-16) L 03/21/17 06:00 BUN 15 mg/dL (7-18) D 03/21/17 06:00 Creatinine 0.9 mg/dL (0.7-1.3) 03/21/17 06:00 Creat Clearance w eGFR > 60 (>60) 03/21/17 06:00 Random Glucose 103 mg/dL (74-106) 03/21/17 06:00 Calcium 7.3 mg/dL (8.5-10.1) L 03/21/17 06:00 Total Bilirubin 0.6 mg/dL (0.2-1.0) D 03/21/17 06:00 AST 12 U/L (15-37) L D 03/21/17 06:00 ALT 16 U/L (12-78) D 03/21/17 06:00 Alkaline Phosphatase 66 U/L (45-117) D 03/21/17 06:00 Total Protein 5.4 g/dl (6.4-8.2) L D 03/21/17 06:00 Albumin 2.3 g/dl (3.4-5.0) L D 03/21/17 06:00 Microbiology 03/19/17 17:00 Blood - Peripheral Venous Blood Culture - Preliminary NO GROWTH OBTAINED AFTER 24 HOURS, INCUBATION TO CONTINUE FOR 4 DAYS. 03/19/17 17:15 Blood - Peripheral Venous Blood Culture - Preliminary NO GROWTH OBTAINED AFTER 24 HOURS, INCUBATION TO CONTINUE FOR 4 DAYS. Assessment: This is a 46 year old male with PMHx of substance abuse (on methadone), GERD, chronic constipation, PTSD, agoraphobia, HCV, who presented to the ED with intermittent abdominal pain and was found to have acute cholecystitis Plan: 1) GI: Acute cholecystitis with cholelithiasis - MRCP with 2/3c, stone in gallbladder neck - Patient transferred to [facility] yesterday for evaluation by GI for ERCP - Continue Zosyn - Continue NPO status and IV fluids - Will discontinue Dilaudid given the patient is on Methadone and has opioid dependency - Will start IV Tylenol (discussed with pharmacy) - For possible cholecystectomy once evaluated by GI - Appreciate surgery consult - Appreciate ID consult 2) Psych: Opioid dependence, on Methadone - Continue verified dose PTSD, agorophobia - Continue Seroquel - Continue Clonidine - Continue Buspar 3) GI: Constipation - Patient reports has not had a bowel movement in 2 weeks. - Magnesium citrate given with no relief - Will try suppository today 4) F/E/N: - NPO - IV fluids 5) Prophylaxis: - Hold all chemical DVT prophylaxis for possible ERCP/surgery - SCDs bilaterally 6) Dispo: - Requires continued inpatient care CODE STATUS: FULL CODE Visit type - Emergency Visit Emergency Visit: Yes ED Registration Date: 03/19/17 Care time: The patient presented to the Emergency Department on the above date and was hospitalized for further evaluation of their emergent condition. - New Patient This patient is new to me today: Yes Date on this admission: 03/21/17 - Critical Care Critical Care patient: No
[2017-03-21] MEDS: cloNIDine HCL 0.1 MG TABLET PO SCH ×2 (09:58→21:10)
[2017-03-21] MEDS: LACTOBACILLUS ACIDOPHILUS 1 EACH TAB (FP) PO SCH (09:59)
--- NOTE | 2017-03-21 10:19 | CONS ---
DATE OF CONSULTATION: DATE OF DICTATION: 03/21/2017 HISTORY OF PRESENT ILLNESS: The patient is a 46-year-old male with history of polysubstance abuse, HIV negative, evaluated for abdominal pain. He reports a 4-day history of worsening abdominal pain and nausea. He reports that it became markedly worse on the day of admission. He presented to the emergency room where he was found to have abdominal tenderness. Imaging studies including a CT scan and sonogram were consistent with acute cholecystitis. He denies any associated fever or chills. His course has been complicated by low-grade fever. He was also noted to have an elevated white blood cell count. Cultures were obtained. He was empirically treated with Zosyn. PAST MEDICAL HISTORY: Positive for polysubstance abuse. Patient reports a remote history of injection drug use, however, reports testing HIV negative on a regular basis, the last test approximately 6 months ago. Past medical history also includes hepatitis C, hypertension, gastroesophageal reflux. PAST SURGICAL HISTORY: Status post hernia repair with mesh. ALLERGIES: No known allergies. MEDICATIONS: As per medication list. LABORATORY DATA: White count 17.2, 84 neutrophils, 7 lymphocytes, 8 monocytes, hematocrit 39.8, platelet count 251. BUN 10, creatinine 0.9. Liver enzymes normal. Urine, leukocyte esterase negative. Blood cultures pending. Lipase 22. PHYSICAL EXAMINATION: General: He is awake and alert. He is in moderate distress secondary to abdominal pain. Vital signs: Temperature 98.8, maximum temperature 100.6, blood pressure 139/93, pulse 80 and regular, respirations 18 per minute. HEENT: Sclerae anicteric. Heart: Heart sounds S1, S2. Lungs: Diminished breath sounds at the bases bilaterally. Abdomen: Markedly distended, tympanitic. There is right upper quadrant tenderness to palpation. Extremities: Negative for edema. IMPRESSION: 1. Acute cholecystitis. 2. Possible biliary sepsis. 3. Leukocytosis secondary to biliary tract source. 4. History of polysubstance abuse. Pending cultures. Empiric antibiotic coverage of biliary tract pathogens with Zosyn. Surgical evaluation. HIV testing. Patient consents. Will follow. Thank you for the kind referral. GABE HERNANDEZ M.D. [id number]
[2017-03-21] MEDS ORDERED: SODIUM CHLORIDE 100 ML IVPB ONE (10:27)
[2017-03-21] MEDS ORDERED: PANTOPRAZOLE SODIUM 40 MG VIAL ONE (10:27)
[2017-03-21] MEDS ORDERED: METHADONE HCL 5 MG TABLET ONE (11:06)
[2017-03-21] MEDS ORDERED: METHADONE HCL 40 MG DISPERSABLE TABLET ONE (11:07)
[2017-03-21] MEDS: METHADONE 80 MG, METHADONE 5 MG PO SCH (11:28)
[2017-03-21] MEDS: PANTOPRAZOLE SODIUM 40 MG in SODIUM CHLORIDE 100 ML IVPB SCH (11:28)
--- NOTE | 2017-03-21 11:31 | CON.GI ---
Consult Consult Specialty:: Gastroenterology Reason for Consultation:: Dr Lupe Smith - History of Present Illness Chief Complaint: RUQ pain that has been constant for the past 3 days with bilious vomiting. History of Present Illness: 46M developed a constant RUQ pain for the past 3 days. It became more generalized yesterday but has subsided today. He has been found to have gallstones. MRCP revealed a mildly dilated duct but no overt choledocholithiasis. His LFTs have been normal. He has not had a BM in 10 days. 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 - History Source History Provided By: Patient Limitations to Obtaining History: No Limitations - Past Medical History TITLE I DIRECTOR: Yes: Other (Agoraphobia, Post traumatic stress disorder) Cardio/Vascular: Yes: HTN Gastrointestinal: Yes: Constipation Hepatobiliary: Yes: Hepatitis C (for many years, never treated), Other (Fatty liver) Psych: Yes: Addictions (heroin IV in past - on methadone x 2 years, tob 1/2ppd x 20y, MJ daily, last 2 days ago), Anxiety, Other (PTSD, agoraphobia) Dermatology: Yes: Other - Past Surgical History Past Surgical History: Yes: Hernia Repair (umbilical hernia repair w/mesh 2008 at [facility]) - Alcohol/Substance Use Hx Alcohol Use: No History of Substance Use: reports: None, Heroin (IV in past, not for years), Marijuana (daily, last 2 days ago) - Smoking History Smoking history: Current every day smoker Have you smoked in the past 12 months: Yes Aproximately how many cigarettes per day: 10 - Social History Usual Living Arrangement: With Child ADL: Support Services Occupation: disabled elevator repairman with PTSD Place of : [facility] History of Recent Travel: No Home Medications - Allergies Allergies/Adverse Reactions: Allergies Allergy/AdvReac Type Severity Reaction Status Date / Time No Known Allergies Allergy Verified 03/19/17 11:03 - Home Medications Home Medications: Ambulatory Orders Buspirone HCl [Buspar -] 10 mg PO TID 03/19/17 Clonidine HCl [Catapres -] 0.2 mg PO BID 03/19/17 Methadone [Dolophine -] 80 mg PO DAILY 03/19/17 Quetiapine Fumarate [Seroquel -] 200 mg PO HS 03/19/17 Clonazepam [Clonazepam] 1 tab PO TID 03/20/17 Family Disease History - Family Disease History Family Disease History: Diabetes: Mother (CHF, HTN, HLD, borderline DM), Heart Disease: Mother, Other: Father (NO CONTACT), Mother, Sister Review of Systems - Review of Systems Constitutional: reports: No Symptoms Eyes: reports: No Symptoms HENT: reports: No Symptoms Neck: reports: No Symptoms Cardiovascular: reports: No Symptoms Respiratory: reports: No Symptoms Gastrointestinal: reports: Abdominal Pain, Constipation Genitourinary: reports: No Symptoms Breasts: reports: No Symptoms Reported Musculoskeletal: reports: No Symptoms Integumentary: reports: No Symptoms Neurological: reports: No Symptoms Endocrine: reports: No Symptoms Hematology/Lymphatic: reports: No Symptoms Psychiatric: reports: Anxiety Physical Exam-GI Vital Signs: Vital Signs Temperature 98.9 F 03/21/17 06:00 Pulse Rate 80 03/21/17 06:00 Respiratory Rate 18 03/21/17 06:00 Blood Pressure 106/58 03/21/17 06:00 O2 Sat by Pulse Oximetry (%) 94 L 03/20/17 22:00 CBC,CMP WBC 14.1 K/mm3 (4.0-10.0) H D 03/21/17 06:00 RBC 3.82 M/mm3 (4.00-5.60) L 03/21/17 06:00 Hgb 10.8 GM/dL (11.7-16.9) L D 03/21/17 06:00 Hct 31.7 % (35.4-49) L D 03/21/17 06:00 MCV 83.1 fl (80-96) 03/21/17 06:00 MCH 28.4 pg (25.7-33.7) 03/21/17 06:00 MCHC 34.1 g/dl (32.0-35.9) 03/21/17 06:00 RDW 13.2 % (11.9-15.9) 03/21/17 06:00 Plt Count 212 K/MM3 (134-434) 03/21/17 06:00 MPV 8.0 fl (7.5-11.1) D 03/21/17 06:00 Neutrophils % 80.8 % (42.8-82.8) 03/21/17 06:00 Lymphocytes % 10.9 % (8-40) 03/21/17 06:00 Monocytes % 7.8 % (3.8-10.2) 03/21/17 06:00 Eosinophils % 0.3 % (0-4.5) 03/21/17 06:00 Basophils % 0.2 % (0-2.0) 03/21/17 06:00 Sodium 137 mmol/L (136-145) 03/21/17 06:00 Potassium 4.1 mmol/L (3.5-5.1) 03/21/17 06:00 Chloride 99 mmol/L (98-107) 03/21/17 06:00 Carbon Dioxide 31 mmol/L (21-32) 03/21/17 06:00 Anion Gap 7 (8-16) L 03/21/17 06:00 BUN 15 mg/dL (7-18) D 03/21/17 06:00 Creatinine 0.9 mg/dL (0.7-1.3) 03/21/17 06:00 Creat Clearance w eGFR > 60 (>60) 03/21/17 06:00 Random Glucose 103 mg/dL (74-106) 03/21/17 06:00 Calcium 7.3 mg/dL (8.5-10.1) L 03/21/17 06:00 Phosphorus 2.4 mg/dL (2.5-4.9) L 03/21/17 06:00 Magnesium 2.5 mg/dL (1.8-2.4) H D 03/21/17 06:00 Total Bilirubin 0.6 mg/dL (0.2-1.0) D 03/21/17 06:00 AST 12 U/L (15-37) L D 03/21/17 06:00 ALT 16 U/L (12-78) D 03/21/17 06:00 Alkaline Phosphatase 66 U/L (45-117) D 03/21/17 06:00 Total Protein 5.4 g/dl (6.4-8.2) L D 03/21/17 06:00 Albumin 2.3 g/dl (3.4-5.0) L D 03/21/17 06:00 Total Amylase 17 U/L (25-125) L 03/20/17 07:00 Lipase 22 U/L (22-51) 03/20/17 07:00 Current Medications Generic Name Dose Route Start Last Admin Trade Name Freq PRN Reason Stop Dose Admin Acetaminophen 1,000 mg 03/21/17 09:25 Ofirmev Injection - IVPB 03/22/17 01:26 Q8H PRN FEVER OR PAIN Albuterol/Ipratropium 1 amp 03/20/17 17:50 03/20/17 20:08 Duoneb - NEB 1 amp Q6H PRN Administration SHORTNESS OF BREATH Bisacodyl 10 mg 03/20/17 17:50 Dulcolax Suppository - RC PRN PRN CONSTIPATION Buspirone HCl 10 mg 03/20/17 06:00 03/21/17 06:14 Buspar - PO 10 mg TID CHELA Administration Clonazepam 0.5 mg 03/20/17 22:00 03/21/17 06:14 Klonopin - PO 0.5 mg TID CHELA Administration Clonidine 0.2 mg 03/20/17 10:00 03/21/17 09:58 Catapres - PO 0.2 mg BID CHELA Administration Sodium Chloride 1,000 mls @ 125 mls/hr 03/19/17 19:15 03/21/17 00:54 Normal Saline - IV 125 mls/hr ASDIR CHELA Administration Piperacillin Sod/Tazobactam 100 mls @ 200 mls/hr 03/21/17 01:02 03/21/17 09:58 Sod 4.5 gm/ Dextrose IVPB 200 mls/hr Q8H-IV CHELA Administration Protocol Pantoprazole Sodium 40 mg/ 100 mls @ 200 mls/hr 03/21/17 10:15 03/21/17 11:28 Sodium Chloride IVPB 200 mls/hr DAILY CHELA Administration Lactobacillus Acidophilus 1 tab 03/20/17 11:00 03/21/17 09:59 Bacid - PO 1 tab DAILY CHELA Administration Methadone HCl 80 mg/ Methadone 85 mg 03/21/17 10:45 03/21/17 11:28 HCl 5 mg PO 85 mg DAILY CHELA Administration Metoclopramide HCl 10 mg 03/19/17 22:05 Reglan Injection - IVPB Q6H PRN NAUSEA AND/OR VOMITING Quetiapine Fumarate 200 mg/ 225 mg 03/19/17 22:45 03/20/17 21:17 Quetiapine Fumarate 25 mg PO 225 mg HS CHELA Administration Constitutional: Yes: Calm Eyes: Yes: Conjunctiva Clear HENT: Yes: Normocephalic Neck: Yes: Supple Cardiovascular: Yes: Regular Rate and Rhythm Respiratory: Yes: CTA Bilaterally Gastrointestinal Inspection: Yes: Scars (healed transverse paraumbilical incision) ...Auscultate: Yes: Normoactive Bowel Sounds ...Palpate: Yes: Soft, Tenderness, Tenderness, Epigastium (no peritoneal signs) ...Rectal Exam: Yes: Guaiac Negative, Other (1+ prostate) Edema: No Peripheral Pulses WNL: Yes Integumentary: Yes: WNL ...Motor Strength: WNL Psychiatric: Yes: Alert, Oriented Labs: CBC, BMP 03/21/17 06:00 03/21/17 06:00 INR, PTT INR 1.07 (0.82-1.09) 03/19/17 17:05 Laboratory Tests 03/20/17 03/21/17 07:00 06:00 Total Bilirubin 0.6 D AST 12 L D ALT 16 D Alkaline Phosphatase 66 D Total Amylase 17 L Lipase 22 Imaging - Results Cat Scan: Image Reviewed (no CBD stones but CBD is mildly dilated) MRI: Report Reviewed ([place] Name: [facility] DEPARTMENT OF RADIOLOGY Phys: Lolita Hernandez NP : 1970 Age: 46 Sex: M [facility] Acct: [id number] Loc: /S [address] [place] [address]. Exam Date: 03/30 Status: ADM IN [place] [id number] Unit Number: [id number] EXAM#: TYPE/EXAM: RESULT: [id number] MRI/ ABDOMEN MRI WITH CONTRAST/MRCP MRI OF THE ABDOMEN WITHOUT AND WITH IV GADOLINIUM WITH MRCP HISTORY: 46-year-old male with acute cholecystitis and dilated CBD TECHNIQUE: Multiplanar multisequential MRI of the abdomen before and after the intravenous administration of contrast were performed on a high field 1.5 Maria Luz GE magnet. Axial and coronal T2 fat-sat, axial T1 (in and out of phase), axial T2 FIESTA, axial T1 fat sat - LAVA prior to contrast and postcontrast administration (45 seconds, 80 seconds, 3 minutes, 5 minutes and 10 minutes delay) in addition to coronal postcontrast LAVA and axial diffusion weighted images were performed. Axial and coronal thin and thick slab 3 D MRCP was performed. 15 cc of Omniscan was administered intravenously No comparison MRI is available. Correlation is made with CT of the abdomen and pelvis and ultrasound of the gallbladder dated March 19, 2017 FINDINGS: Limited study due to patient's body habitus touching the gantry with wraparound artifacts Bilateral posterior dependent lung atelectasis. There is a 1.2 cm extrapleural nodule in the medial left lower lobe adjacent to the left neural foramina of T8 vertebral body. The visualized inferior mediastinum is grossly unremarkable. Evaluation of the liver is markedly limited however no gross focal lesion is identified.. The spleen is enlarged measuring 14.5 x 8.2 cm with no definite focal lesion identified. The pancreas is homogeneous in signal with no focal signal abnormalities seen. The pancreatic duct is nondilated. The gallbladder is distended containing a 2.3 cm stone in the neck with wall thickening and pericholecystic edema tracking inferiorly anterior to the colon hepatic flexure. The CBD is diffusely dilated measuring up to 1.1 cm proximally and 9 mm distally with nonvisualization of the most distal portion which could be secondary to ampullary edema and/or stricture. The adrenal glands are unremarkable. The kidneys are symmetrically enhancing with no evidence of enhancing lesions. There is no evidence of hydronephrosis. There is no evidence of abdominal lymphadenopathy or abdominal ascites. There are no abnormally dilated bowel loops The visualized osseous structures are grossly unremarkable. IMPRESSION: Cholelithiasis with MRI findings of acute cholecystitis. Limited MRCP images due to patient body habitus. No obvious choledocholithiasis seen. Diffusely dilated CBD with distal narrowing at the site of the ampulla is nonspecific and could be secondary to spasm, stricture or edema. Correlate with clinical history, symptomatology, LFTs and bilirubin level. Mild splenomegaly. 1.2 cm medial left sided extrapleural nodule adjacent to the left T8 neural foramina is of unclear etiology or clinical significance Reported By: Gerardo Acosta MD 03/20/17 161 Technologist: Jonatan Velarde Transcribed Date/Time: 03/20/171617 Frontend Engineer: Gerardo Acosta Printed Date/Time: [ rep prt dt last] [ rep prt tm last] By: [ rep prt user last] Signed by: Karla Gerardo Signed on: 20-Mar-2017 16:19) Assessment/Plan The clinical picture and imaging is consistent with acute cholecystitis and I agree with the need to proceed with cholecystectomy. There is no enough imaging or other clinical evidence for choledocholithiasis so an ERCP is not indicated at this point. I cannot entirely exclude recent passage or residual CBD stones but given that ERCP is no longer considered a safe diagnostic modality given the risk of ERCP induced pancreatitis I will reserve it for more obvious signs of CBD stones. I have discussed the case with Dr Smith. I have advised Tra to pursue treatment of his hepatitis C before cirrhosis or hepatoma ensue. he is agreeable to pursuing this at [facility] which is near to his home after discharge. Tra's anemia will be followed. His stool is guaiac negative arguing against GI blood loss but is the anemia progresses and endocoscopic evaluation will need to be considered. He could have portal gastropathy or varices so I advised EGD as an outpatient. I will order Miralax for the methadone induced constipation.
[2017-03-21] MEDS: PANTOPRAZOLE SODIUM 100 ML IVPB SCH (11:34)
[2017-03-21] MEDS: METHADONE HCL 10 MG TABLET PO SCH (11:34)
[2017-03-21] MEDS: POLYETHYLENE GLYCOL 3350 119 GM BTL PO SCH ×2 (14:31→21:16)
--- NOTE | 2017-03-21 15:18 | CONSULT ---
Consult Detox [facility] Reason for Current Admission/Consult: opioid dependence on agonist therapy & clonazepam dependence. Referred by:: Josefa Lee NP - History History of Present Illness: 46 y/o man with a long hx. of drug dependence is seen to discuss current clonazepam use. Pt. attends OTP on methadone 84mg daily. Pt. was in our detox in [facility] january for clonazepam. After completion of detox, he felt anxious. His private doctor resume clonazepam at a lower dose of 0.5mg tid? which pt. feels is working. - History Source History Provided By: Patient, Medical Record - Alcohol/Substance Use Hx Alcohol Use: No Hx Substance Use: Yes - Past Medical History METHODS ENGINEER: Yes: Other (Agoraphobia, Post traumatic stress disorder) Cardio/Vascular: Yes: HTN Pulmonary: No: Asthma, COPD Gastrointestinal: Yes: Constipation Hepatobiliary: Yes: Hepatitis C (for many years, never treated), Other (Fatty liver) Renal/: No: Renal Failure, Renal Inusuff, BPH, Cancer, Hematuria, Hemodialysis , Neurogenic Bladder, Renal Calculi, UTI, Other Infectious Disease: No: AIDS, C-Diff, Herpes Zoster, HIV, MRSA, STD's, Tuberculosis, VREF, Other Psych: Yes: Addictions (heroin IV in past - on methadone x 2 years, tob 1/2ppd x 20y, MJ daily, last 2 days ago), Anxiety, Other (PTSD, agoraphobia) Musculoskeletal: No: Bursitis, Chronic low back pain, Hemiparesis, Hemiplegia, Osteoarthritis, Paraplegia, Other Rheumatology: No: Fibromyalgia, Gout, Lupus, Rheumatoid Arthritis, Sarcoidosis, Vasculitis, Other ENT: No: Allergic Rhinitis, Sinusitis, Other Endocrine: No: Gray's Disease, Nabeel's Disease, Diabetes Insipidus, Diabetes Mellitus, Hyperparathyroidism, Hyperthyroidism, Hypothyroidism, Osteopenia, SIADH, Other Dermatology: Yes: Other - Past Surgical History Past Surgical History: Yes: Hernia Repair (umbilical hernia repair w/mesh 2008 at [facility]) - Significant Medical Findings: Laboratory Last Values WBC 11.9 K/mm3 (4.0-10.0) H 03/23/17 06:10 RBC 3.69 M/mm3 (4.00-5.60) L 03/23/17 06:10 Hgb 10.4 GM/dL (11.7-16.9) L 03/23/17 06:10 Hct 31.1 % (35.4-49) L 03/23/17 06:10 MCV 84.3 fl (80-96) 03/23/17 06:10 MCH 28.2 pg (25.7-33.7) 03/23/17 06:10 MCHC 33.4 g/dl (32.0-35.9) 03/23/17 06:10 RDW 13.5 % (11.9-15.9) 03/23/17 06:10 Plt Count 248 K/MM3 (134-434) 03/23/17 06:10 MPV 7.8 fl (7.5-11.1) 03/23/17 06:10 Neutrophils % 77.3 % (42.8-82.8) 03/23/17 06:10 Lymphocytes % 12.4 % (8-40) D 03/23/17 06:10 Monocytes % 9.2 % (3.8-10.2) 03/23/17 06:10 Eosinophils % 0.5 % (0-4.5) 03/23/17 06:10 Basophils % 0.6 % (0-2.0) 03/23/17 06:10 Retic Count 1.17 % (0.5-1.5) 03/22/17 06:05 INR 1.07 (0.82-1.09) 03/19/17 17:05 Sodium 139 mmol/L (136-145) 03/23/17 06:10 Potassium 3.5 mmol/L (3.5-5.1) 03/23/17 06:10 Chloride 104 mmol/L (98-107) 03/23/17 06:10 Carbon Dioxide 25 mmol/L (21-32) 03/23/17 06:10 Anion Gap 10 (8-16) 03/23/17 06:10 BUN 11 mg/dL (7-18) D 03/23/17 06:10 Creatinine 0.8 mg/dL (0.7-1.3) 03/23/17 06:10 Creat Clearance w eGFR > 60 (>60) 03/23/17 06:10 Random Glucose 82 mg/dL (74-106) D 03/23/17 06:10 Calcium 7.2 mg/dL (8.5-10.1) L 03/23/17 06:10 Phosphorus 2.7 mg/dL (2.5-4.9) 03/23/17 06:10 Magnesium 2.3 mg/dL (1.8-2.4) 03/23/17 06:10 Iron 17 ug/dL (38-169) L 03/22/17 06:05 TIBC 172 ug/dL (250-450) L 03/22/17 06:05 Iron Saturation 10 % (15-55) L 03/22/17 06:05 Ferritin 470.081 ng/ml (16.4-293.9) H 03/22/17 06:05 Total Bilirubin 0.6 mg/dL (0.2-1.0) 03/23/17 06:10 Direct Bilirubin 0.2 mg/dL (0.0-0.2) 03/22/17 06:05 AST 21 U/L (15-37) 03/23/17 06:10 ALT 17 U/L (12-78) 03/23/17 06:10 Alkaline Phosphatase 85 U/L (45-117) 03/23/17 06:10 C-Reactive Protein 23.9 MG/DL (0.00-0.3) H 03/22/17 06:05 Total Protein 5.6 g/dl (6.4-8.2) L 03/23/17 06:10 Albumin 2.1 g/dl (3.4-5.0) L 03/23/17 06:10 Total Amylase 26 U/L (25-115) 03/23/17 06:10 Lipase 135 U/L (73-393) 03/22/17 06:05 Urine Color Yellow 03/19/17 12:35 Urine Appearance Sl cloudy 03/19/17 12:35 Urine pH 6.5 (4.5-8) 03/19/17 12:35 Ur Specific Inez 1.025 (1.005-1.025) 03/19/17 12:35 Urine Protein Trace (NEGATIVE) 03/19/17 12:35 Urine Glucose (UA) Trace (NEGATIVE) 03/19/17 12:35 Urine Ketones Negative (NEGATIVE) 03/19/17 12:35 Urine Blood Negative (NEGATIVE) 03/19/17 12:35 Urine Nitrite Negative (NEGATIVE) 03/19/17 12:35 Urine Bilirubin Negative (NEGATIVE) 03/19/17 12:35 Urine Urobilinogen 1.0 e.u/dl (0.2-1.0) 03/19/17 12:35 Ur Leukocyte Esterase Negative (NEGATIVE) 03/19/17 12:35 Hepatitis A Ab Total Negative (Negative) 03/22/17 06:05 Hep Bs Antigen Negative (Negative) 03/22/17 06:05 Hep Bs Antibody Reactive (.) 03/22/17 06:05 Hep B Core Total Ab Negative (Negative) 03/22/17 06:05 HIV 1&2 Antibody Screen Negative 03/22/17 06:05 HIV P24 Antigen Negative 03/22/17 06:05 Blood Type O POSITIVE 03/19/17 17:30 Antibody Screen Negative 03/19/17 17:05 labs noted Assessment Plan - Diagnosis (1) Methadone maintenance therapy patient Status: Acute (2) Sedative, hypnotic or anxiolytic dependence, uncomplicated Status: Acute (3) Calculus of gallbladder with acute cholecystitis without obstruction Status: Acute - Plan Plan: No detox needed, Resume Methadone 84mg po daily,in progress & klonopin .5mg tid.
[2017-03-21] MEDS ORDERED: PT OWN MED DRAWER 7, Y5N ONE ×2 (17:09→20:18)
[2017-03-21] MEDS ORDERED: ACETAMINOPHEN 1000 MG/100 ML VIAL (NON FORMULARY) IVPB ONE (20:10)
[2017-03-21] MEDS: QUETIAPINE FUMARATE PO SCH (22:13)
[2017-03-22] MEDS ORDERED: DEXTROSE 5%-WATER 100 ML IVPB ONE ×3 (00:36→17:52)
[2017-03-22] MEDS ORDERED: PIPERACILLIN/TAZOBACTAM 4.5 GM VIAL IVPB ONE ×3 (00:36→17:51)
[2017-03-22] MEDS: PIPERACILLIN/TAZOB 4.5 GM 4.5 GM in DEXTROSE 5%-WATER 100 ML IVPB SCH ×3 (01:10→17:54)
--- NOTE | 2017-03-22 01:10 | PN ---
Progress Note (short form) - Note Progress Note: LATE ENTRY: Pt seen this morning before noon Pt feeling somewhat better. Pain has been controlled with meds. No n/v. No fevers. NPO except meds. Seen by GI - no plan for ERCP, recommended considering IOC with lap marga. WBC back down to 14, LFTs still normal. No BM yet. Vital Signs - 24 hr 03/21/17 03/21/17 03/21/17 02:00 06:00 09:00 Temperature 98.4 F 98.9 F Pulse Rate 97 H 80 Respiratory 18 18 16 Rate Blood Pressure 120/59 106/58 O2 Sat by Pulse 94 L Oximetry (%) 03/21/17 03/21/17 03/21/17 10:00 14:34 18:00 Temperature 98.6 F 98.2 F 97.8 F Pulse Rate 76 68 79 Respiratory 18 16 18 Rate Blood Pressure 117/64 100/55 113/61 O2 Sat by Pulse Oximetry (%) 03/21/17 03/21/17 21:00 22:00 Temperature 98.0 F Pulse Rate 80 Respiratory 18 Rate Blood Pressure 115/62 O2 Sat by Pulse 95 Oximetry (%) PE: abdomen soft, obese, tender RUQ and less epigastric, no peritoneal signs some bowel sounds present CBCD WBC 14.1 K/mm3 (4.0-10.0) H D 03/21/17 06:00 RBC 3.82 M/mm3 (4.00-5.60) L 03/21/17 06:00 Hgb 10.8 GM/dL (11.7-16.9) L D 03/21/17 06:00 Hct 31.7 % (35.4-49) L D 03/21/17 06:00 MCV 83.1 fl (80-96) 03/21/17 06:00 MCHC 34.1 g/dl (32.0-35.9) 03/21/17 06:00 RDW 13.2 % (11.9-15.9) 03/21/17 06:00 Plt Count 212 K/MM3 (134-434) 03/21/17 06:00 MPV 8.0 fl (7.5-11.1) D 03/21/17 06:00 CMP Sodium 137 mmol/L (136-145) 03/21/17 06:00 Potassium 4.1 mmol/L (3.5-5.1) 03/21/17 06:00 Chloride 99 mmol/L (98-107) 03/21/17 06:00 Carbon Dioxide 31 mmol/L (21-32) 03/21/17 06:00 Anion Gap 7 (8-16) L 03/21/17 06:00 BUN 15 mg/dL (7-18) D 03/21/17 06:00 Creatinine 0.9 mg/dL (0.7-1.3) 03/21/17 06:00 Creat Clearance w eGFR > 60 (>60) 03/21/17 06:00 Calcium 7.3 mg/dL (8.5-10.1) L 03/21/17 06:00 Total Bilirubin 0.6 mg/dL (0.2-1.0) D 03/21/17 06:00 AST 12 U/L (15-37) L D 03/21/17 06:00 ALT 16 U/L (12-78) D 03/21/17 06:00 Alkaline Phosphatase 66 U/L (45-117) D 03/21/17 06:00 Total Protein 5.4 g/dl (6.4-8.2) L D 03/21/17 06:00 Albumin 2.3 g/dl (3.4-5.0) L D 03/21/17 06:00 A/P: acute cholecystitis with dilated CBD appreciate GI input continue NPO/IVF except meds while still with pain or tenderness trend labs continue antibiotics plan for lap poss open cholecystectomy Thursday with possible IOC Problem List - Problems (1) Calculus of gallbladder with acute cholecystitis without obstruction Code(s): K80.00 - CALCULUS OF GALLBLADDER W ACUTE CHOLECYST W/O OBSTRUCTION (2) Common bile duct dilation Code(s): K83.8 - OTHER SPECIFIED DISEASES OF BILIARY TRACT (3) Bipolar disorder Code(s): F31.9 - BIPOLAR DISORDER, UNSPECIFIED Qualifiers: Active/Remission status: remission status unspecified Qualified Code (s): F31.9 - Bipolar disorder, unspecified (4) Constipation Code(s): K59.00 - CONSTIPATION, UNSPECIFIED Qualifiers: Constipation type: drug induced constipation Qualified Code(s): K59.03 - Drug induced constipation (5) Hypertension Code(s): I10 - ESSENTIAL (PRIMARY) HYPERTENSION Qualifiers: Hypertension type: essential hypertension Qualified Code(s): I10 - Essential (primary) hypertension (6) Methadone maintenance therapy patient Code(s): F11.20 - OPIOID DEPENDENCE, UNCOMPLICATED (7) Polysubstance abuse Code(s): F19.10 - OTHER PSYCHOACTIVE SUBSTANCE ABUSE, UNCOMPLICATED
[2017-03-22] MEDS: clonazePAM 0.5 MG TABLET PO SCH ×3 (05:53→21:52)
[2017-03-22] MEDS: busPIRone HCL 5 MG TABLET PO SCH ×3 (05:53→21:51)
[2017-03-22] MEDS: POLYETHYLENE GLYCOL 3350 119 GM BTL PO SCH ×3 (05:54→21:52)
[2017-03-22] MEDS: SODIUM CHLORIDE 1,000 ML IV SCH ×3 (06:55→18:55)
[2017-03-22 07:40] LABS: BASOPHIL 0.4 % (0-2.0); EOSINOPHIL 0.5 % (0-4.5); MCH 28.2 pg (25.7-33.7); MCHC 33.4 g/dl (32.0-35.9); MEAN CELL VOLUME 84.5 fl (80-96); MEAN PLT VOLUME 8.2 fl (7.5-11.1); NEUTROPHILS 83.7 % (42.8-82.8); PLATELET COUNT 232 K/MM3 (134-434); RDW 13.4 % (11.9-15.9); WHITE BLOOD COUNT 13.7 K/mm3 (4.0-10.0)
[2017-03-22] MEDS ORDERED: BISACODYL 10 MG SUPP.RECT RC PRN (07:52)
[2017-03-22] MEDS ORDERED: METOCLOPRAMIDE HCL INJECTION 10 MG/2 ML VIAL IVPB PRN (07:52)
[2017-03-22] MEDS ORDERED: ALBUTEROL SO4 2.5/IPRATROPIUM 0.5 INH SOL 3 ML VIAL.NEB. NEB PRN (07:52)
[2017-03-22 08:47] LABS: ALBUMIN 2.5 g/dl (3.4-5.0); BILIRUBIN,DIRECT 0.2 mg/dL (0.0-0.2); BILIRUBIN,TOTAL 0.6 mg/dL (0.2-1.0); TOT PROT 6.1 g/dl (6.4-8.2)
[2017-03-22 08:52] LABS: C-REACTIVE PROTEIN 23.9 MG/DL (0.00-0.3)
[2017-03-22] MEDS ORDERED: METHADONE HCL 5 MG TABLET ONE (09:47)
[2017-03-22] MEDS ORDERED: METHADONE HCL 40 MG DISPERSABLE TABLET ONE (09:48)
[2017-03-22] MEDS ORDERED: PANTOPRAZOLE SODIUM 40 MG VIAL ONE (09:48)
[2017-03-22] MEDS ORDERED: SODIUM CHLORIDE 100 ML IVPB ONE (09:49)
[2017-03-22] MEDS: cloNIDine HCL 0.1 MG TABLET PO SCH ×2 (09:53→21:52)
[2017-03-22] MEDS: LACTOBACILLUS ACIDOPHILUS 1 EACH TAB (FP) PO SCH (09:53)
[2017-03-22] MEDS: METHADONE 80 MG, METHADONE 5 MG PO SCH (09:53)
[2017-03-22] MEDS: HYDROmorphone HCL CARPU-JECT 1 MG/1 ML DISP.SYRIN IVPB PRN ×4 (10:06→23:26)
--- NOTE | 2017-03-22 10:18 | PN ---
GI Progress Note Subjective: GI NOte: Having increased pain in the RUQ. CRP is 23 but LFTs remain normal arguing against a CBD stone. Neverthless support plan for an intraoperative cholangiogram. - Objective Vital Signs: Vital Signs Temperature 98.5 F 03/22/17 07:41 Pulse Rate 82 03/22/17 07:41 Respiratory Rate 18 03/22/17 07:41 Blood Pressure 123/76 03/22/17 07:41 O2 Sat by Pulse Oximetry (%) 95 03/21/17 21:00 HENT: Yes: Pharyngeal Erythema ...Palpate: Yes: Tenderness (RUQ tenderness, no rebound) Labs: CBC, BMP 03/22/17 06:05 03/21/17 06:00 INR, PTT INR 1.07 (0.82-1.09) 03/19/17 17:05 Laboratory Tests 03/22/17 03/22/17 06:05 06:05 Ferritin 470.081 H Total Bilirubin 0.6 Direct Bilirubin 0.2 AST 19 D ALT 17 Alkaline Phosphatase 77 C-Reactive Protein 23.9 H Assessment/Plan Acute cholecystitis. Doubt CBD stones. Anticipate cholecystectomy with intraoperative cholangiogram.
[2017-03-22] MEDS: PANTOPRAZOLE SODIUM 40 MG in SODIUM CHLORIDE 100 ML IVPB SCH (11:55)
--- NOTE | 2017-03-22 12:22 | PN ---
Progress Note (short form) - Note Progress Note: Subjective: The patient was seen and examined at the bedside has complaints of diffuse abdominal pain. Current Medications Generic Name Dose Route Start Last Admin Trade Name Freq PRN Reason Stop Dose Admin Albuterol/Ipratropium 1 amp 03/22/17 07:52 Duoneb - NEB Q6H PRN SHORTNESS OF BREATH Bisacodyl 10 mg 03/22/17 07:52 Dulcolax Suppository - RC PRN PRN CONSTIPATION Buspirone HCl 10 mg 03/22/17 14:00 Buspar - PO TID CHELA Clonazepam 0.5 mg 03/22/17 14:00 Klonopin - PO TID CHELA Clonidine 0.2 mg 03/22/17 10:00 03/22/17 09:53 Catapres - PO 0.2 mg BID CHELA Administration Hydromorphone HCl 1 mg 03/22/17 09:39 03/22/17 10:06 Dilaudid Injection - IVPB 1 mg Q4H PRN Administration PAIN Piperacillin Sod/Tazobactam 100 mls @ 200 mls/hr 03/21/17 01:02 03/22/17 11:55 Sod 4.5 gm/ Dextrose IVPB 200 mls/hr Q8H-IV CHELA Administration Protocol Pantoprazole Sodium 40 mg/ 100 mls @ 200 mls/hr 03/21/17 10:15 03/22/17 11:55 Sodium Chloride IVPB 200 mls/hr DAILY CHELA Administration Sodium Chloride 1,000 mls @ 125 mls/hr 03/22/17 07:52 03/22/17 09:53 Normal Saline - IV Not Given ASDIR CHELA Lactobacillus Acidophilus 1 tab 03/22/17 10:00 03/22/17 09:53 Bacid - PO 1 tab DAILY CHELA Administration Methadone HCl 80 mg/ Methadone 85 mg 03/21/17 10:45 03/22/17 09:53 HCl 5 mg PO 85 mg DAILY CHELA Administration Metoclopramide HCl 10 mg 03/22/17 07:52 Reglan Injection - IVPB Q6H PRN NAUSEA AND/OR VOMITING Polyethylene Glycol 17 gm 03/21/17 14:00 03/22/17 05:54 Miralax (For Daily Use) - PO 17 gm TID CHELA Administration Quetiapine Fumarate 200 mg/ 225 mg 03/22/17 22:00 Quetiapine Fumarate 25 mg PO HS CHELA Objective: Vital Signs Period Temp Pulse Resp BP Sys/Nova Pulse Ox Last 24 Hr 97.8 F-98.5 F 68-86 16-18 100-135/55-83 95 Physical Exam: General: NAD, A&Ox3 Lungs: CTA bilaterally Heart: RRR, S1S2 Abd: Distended. Diffuse mild tenderness throughout. Normoactive bowel sounds Ext: Warm, well-perfused, 2+ DP/PT bilaterally Neuro: CN 2-12 intact CBCD WBC 13.7 K/mm3 (4.0-10.0) H 03/22/17 06:05 RBC 4.01 M/mm3 (4.00-5.60) 03/22/17 06:05 Hgb 11.3 GM/dL (11.7-16.9) L 03/22/17 06:05 Hct 33.9 % (35.4-49) L 03/22/17 06:05 MCV 84.5 fl (80-96) 03/22/17 06:05 MCHC 33.4 g/dl (32.0-35.9) 03/22/17 06:05 RDW 13.4 % (11.9-15.9) 03/22/17 06:05 Plt Count 232 K/MM3 (134-434) 03/22/17 06:05 MPV 8.2 fl (7.5-11.1) 03/22/17 06:05 CMP Sodium 137 mmol/L (136-145) 03/21/17 06:00 Potassium 4.1 mmol/L (3.5-5.1) 03/21/17 06:00 Chloride 99 mmol/L (98-107) 03/21/17 06:00 Carbon Dioxide 31 mmol/L (21-32) 03/21/17 06:00 Anion Gap 7 (8-16) L 03/21/17 06:00 BUN 15 mg/dL (7-18) D 03/21/17 06:00 Creatinine 0.9 mg/dL (0.7-1.3) 03/21/17 06:00 Creat Clearance w eGFR > 60 (>60) 03/21/17 06:00 Random Glucose 103 mg/dL (74-106) 03/21/17 06:00 Calcium 7.3 mg/dL (8.5-10.1) L 03/21/17 06:00 Total Bilirubin 0.6 mg/dL (0.2-1.0) 03/22/17 06:05 AST 19 U/L (15-37) D 03/22/17 06:05 ALT 17 U/L (12-78) 03/22/17 06:05 Alkaline Phosphatase 77 U/L (45-117) 03/22/17 06:05 Total Protein 6.1 g/dl (6.4-8.2) L 03/22/17 06:05 Albumin 2.5 g/dl (3.4-5.0) L 03/22/17 06:05 Microbiology 03/19/17 17:00 Blood - Peripheral Venous Blood Culture - Preliminary NO GROWTH OBTAINED AFTER 48 HOURS, INCUBATION TO CONTINUE FOR 3 DAYS. 03/19/17 17:15 Blood - Peripheral Venous Blood Culture - Preliminary NO GROWTH OBTAINED AFTER 48 HOURS, INCUBATION TO CONTINUE FOR 3 DAYS. Assessment: This is a 46 year old male with PMHx of substance abuse (on methadone), GERD, chronic constipation, PTSD, agoraphobia, HCV, who presented to the ED with intermittent abdominal pain and was found to have acute cholecystitis Plan: 1) GI: Acute cholecystitis with cholelithiasis - MRCP with 2/3c, stone in gallbladder neck - For Cholecytectomy and intraoperative cholangiogram - Continue Zosyn - Continue NPO status and IV fluids - Pain management - There are no absolute contraindications with proceeding for surgery tomorrow. The patient is low risk for a moderate risk procedure. He has no signs of ACS, denies chest pain, EKG NSR. - Appreciate surgery consult - Appreciate ID consult 2) Psych: Opioid dependence, on Methadone - Continue verified dose PTSD, agorophobia - Continue Seroquel - Continue Clonidine - Continue Buspar 3) GI: Constipation - Resolved 4) F/E/N: - NPO - IV fluids 5) Prophylaxis: - Hold all chemical DVT prophylaxis for surgery tomorrow - SCDs bilaterally 6) Dispo: - Requires continued inpatient care CODE STATUS: FULL CODE Visit type - Emergency Visit Emergency Visit: Yes ED Registration Date: 03/19/17 Care time: The patient presented to the Emergency Department on the above date and was hospitalized for further evaluation of their emergent condition. - New Patient This patient is new to me today: No - Critical Care Critical Care patient: No
[2017-03-22 12:48] LABS: HIV 1 & 2 AB NEGATIVE; HIV 1 AGp24 NEGATIVE
--- NOTE | 2017-03-22 13:13 | PN ---
Progress Note (short form) - Note Progress Note: Pt feeling better. Pain has been controlled with meds, though still has some in RUQ, more when breathing. No n/v. No fevers. Has been ambulating. NPO except meds. WBC down slightly, LFTs still normal. Had several bowel movements and feels better. Vital Signs Period Temp Pulse Resp BP Sys/Nova Pulse Ox Last 24 Hr 97.8 F-98.5 F 68-86 16-18 100-135/55-83 95 PE: abdomen soft, obese, tender RUQ with no peritoneal signs some bowel sounds present CBCD WBC 13.7 K/mm3 (4.0-10.0) H 03/22/17 06:05 RBC 4.01 M/mm3 (4.00-5.60) 03/22/17 06:05 Hgb 11.3 GM/dL (11.7-16.9) L 03/22/17 06:05 Hct 33.9 % (35.4-49) L 03/22/17 06:05 MCV 84.5 fl (80-96) 03/22/17 06:05 MCHC 33.4 g/dl (32.0-35.9) 03/22/17 06:05 RDW 13.4 % (11.9-15.9) 03/22/17 06:05 Plt Count 232 K/MM3 (134-434) 03/22/17 06:05 MPV 8.2 fl (7.5-11.1) 03/22/17 06:05 CMP Sodium 137 mmol/L (136-145) 03/21/17 06:00 Potassium 4.1 mmol/L (3.5-5.1) 03/21/17 06:00 Chloride 99 mmol/L (98-107) 03/21/17 06:00 Carbon Dioxide 31 mmol/L (21-32) 03/21/17 06:00 Anion Gap 7 (8-16) L 03/21/17 06:00 BUN 15 mg/dL (7-18) D 03/21/17 06:00 Creatinine 0.9 mg/dL (0.7-1.3) 03/21/17 06:00 Creat Clearance w eGFR > 60 (>60) 03/21/17 06:00 Calcium 7.3 mg/dL (8.5-10.1) L 03/21/17 06:00 Total Bilirubin 0.6 mg/dL (0.2-1.0) 03/22/17 06:05 AST 19 U/L (15-37) D 03/22/17 06:05 ALT 17 U/L (12-78) 03/22/17 06:05 Alkaline Phosphatase 77 U/L (45-117) 03/22/17 06:05 Total Protein 6.1 g/dl (6.4-8.2) L 03/22/17 06:05 Albumin 2.5 g/dl (3.4-5.0) L 03/22/17 06:05 A/P: acute cholecystitis with dilated CBD appreciate GI input continue NPO/IVF except meds trend labs continue antibiotics plan for lap poss open cholecystectomy tomorrow with possible IOC Discussed above procedures with patient with R/B/A including but not limited to bleeding, infection, bile leak, injury to bile duct or nearby structures, retained stones, need for further procedures. He agrees to operation as noted; will sign informed consent today. Problem List - Problems (1) Calculus of gallbladder with acute cholecystitis without obstruction Code(s): K80.00 - CALCULUS OF GALLBLADDER W ACUTE CHOLECYST W/O OBSTRUCTION (2) Common bile duct dilation Code(s): K83.8 - OTHER SPECIFIED DISEASES OF BILIARY TRACT (3) Bipolar disorder Code(s): F31.9 - BIPOLAR DISORDER, UNSPECIFIED Qualifiers: Active/Remission status: remission status unspecified Qualified Code (s): F31.9 - Bipolar disorder, unspecified (4) Constipation Code(s): K59.00 - CONSTIPATION, UNSPECIFIED Qualifiers: Constipation type: drug induced constipation Qualified Code(s): K59.03 - Drug induced constipation (5) Hypertension Code(s): I10 - ESSENTIAL (PRIMARY) HYPERTENSION Qualifiers: Hypertension type: essential hypertension Qualified Code(s): I10 - Essential (primary) hypertension (6) Methadone maintenance therapy patient Code(s): F11.20 - OPIOID DEPENDENCE, UNCOMPLICATED (7) Polysubstance abuse Code(s): F19.10 - OTHER PSYCHOACTIVE SUBSTANCE ABUSE, UNCOMPLICATED
[2017-03-22] MEDS ORDERED: PT OWN MED DRAWER 7, Y5N ONE (21:30)
[2017-03-22] MEDS ORDERED: QUETIAPINE FUMARATE PO SCH (22:00)
[2017-03-23] MEDS ORDERED: PIPERACILLIN/TAZOBACTAM 4.5 GM VIAL IVPB ONE ×3 (00:34→16:57)
[2017-03-23] MEDS ORDERED: DEXTROSE 5%-WATER 100 ML IVPB ONE ×3 (00:34→16:57)
[2017-03-23] MEDS: PIPERACILLIN/TAZOB 4.5 GM 4.5 GM in DEXTROSE 5%-WATER 100 ML IVPB SCH ×3 (02:45→17:50)
[2017-03-23] MEDS: busPIRone HCL 5 MG TABLET PO SCH ×3 (05:49→22:59)
[2017-03-23] MEDS: clonazePAM 0.5 MG TABLET PO SCH ×3 (05:49→22:59)
[2017-03-23] MEDS: POLYETHYLENE GLYCOL 3350 119 GM BTL PO SCH ×2 (05:50→14:30)
[2017-03-23] MEDS: HYDROmorphone HCL CARPU-JECT 1 MG/1 ML DISP.SYRIN IVPB PRN ×3 (06:29→23:00)
[2017-03-23 08:03] LABS: BASOPHIL 0.6 % (0-2.0); EOSINOPHIL 0.5 % (0-4.5); MCH 28.2 pg (25.7-33.7); MCHC 33.4 g/dl (32.0-35.9); MEAN CELL VOLUME 84.3 fl (80-96); MEAN PLT VOLUME 7.8 fl (7.5-11.1); NEUTROPHILS 77.3 % (42.8-82.8); PLATELET COUNT 248 K/MM3 (134-434); RDW 13.5 % (11.9-15.9); WHITE BLOOD COUNT 11.9 K/mm3 (4.0-10.0)
[2017-03-23] MEDS ORDERED: SODIUM CHLORIDE 100 ML IVPB ONE (08:14)
[2017-03-23] MEDS ORDERED: PANTOPRAZOLE SODIUM 40 MG VIAL ONE (08:14)
[2017-03-23 08:28] LABS: ALBUMIN 2.1 g/dl (3.4-5.0); ANION GAP 10 (8-16); CALCIUM 7.2 mg/dL (8.5-10.1); CO2 25 mmol/L (21-32); GLUCOSE,RANDOM 82 mg/dL (74-106); MAGNESIUM 2.3 mg/dL (1.8-2.4)
[2017-03-23 08:33] LABS: ALK PHOS 85 U/L (45-117); AMYLASE 26 U/L (25-115); BILIRUBIN,TOTAL 0.6 mg/dL (0.2-1.0); CREATININE 0.8 mg/dL (0.7-1.3); PHOSPHOROUS 2.7 mg/dL (2.5-4.9); SGOT/AST 21 U/L (15-37); SGPT/ALT 17 U/L (12-78); TOT PROT 5.6 g/dl (6.4-8.2)
[2017-03-23] MEDS ORDERED: METHADONE HCL 5 MG TABLET ONE (09:41)
[2017-03-23] MEDS ORDERED: METHADONE HCL 40 MG DISPERSABLE TABLET ONE (09:42)
[2017-03-23] MEDS: SODIUM CHLORIDE 1,000 ML IV SCH (09:52)
[2017-03-23] MEDS: METHADONE 80 MG, METHADONE 5 MG PO SCH (09:56)
[2017-03-23] MEDS: cloNIDine HCL 0.1 MG TABLET PO SCH ×2 (09:56→23:00)
[2017-03-23] MEDS: LACTOBACILLUS ACIDOPHILUS 1 EACH TAB (FP) PO SCH (09:57)
[2017-03-23] MEDS: PANTOPRAZOLE SODIUM 40 MG in SODIUM CHLORIDE 100 ML IVPB SCH (09:57)
--- NOTE | 2017-03-23 10:42 | PN ---
Progress Note (short form) - Note Progress Note: Subjective: The patient was seen and examined at the bedside states he still has RUQ tenderness He reports having bowel movements Spoke to Dr. Garner yesterday who states ok to give patient Dilaudid IVPB along with Methadone Current Medications Generic Name Dose Route Start Last Admin Trade Name Freq PRN Reason Stop Dose Admin Albuterol/Ipratropium 1 amp 03/22/17 07:52 Duoneb - NEB Q6H PRN SHORTNESS OF BREATH Bisacodyl 10 mg 03/22/17 07:52 Dulcolax Suppository - RC PRN PRN CONSTIPATION Buspirone HCl 10 mg 03/22/17 14:00 03/23/17 05:49 Buspar - PO 10 mg TID CHELA Administration Clonazepam 0.5 mg 03/22/17 14:00 03/23/17 05:49 Klonopin - PO 0.5 mg TID CHELA Administration Clonidine 0.2 mg 03/22/17 10:00 03/23/17 09:56 Catapres - PO 0.2 mg BID CHELA Administration Hydromorphone HCl 1 mg 03/22/17 09:39 03/23/17 06:29 Dilaudid Injection - IVPB 1 mg Q4H PRN Administration PAIN Piperacillin Sod/Tazobactam 100 mls @ 200 mls/hr 03/21/17 01:02 03/23/17 09:58 Sod 4.5 gm/ Dextrose IVPB 200 mls/hr Q8H-IV CHELA Administration Protocol Pantoprazole Sodium 40 mg/ 100 mls @ 200 mls/hr 03/21/17 10:15 03/23/17 09:57 Sodium Chloride IVPB 200 mls/hr DAILY CHELA Administration Sodium Chloride 1,000 mls @ 125 mls/hr 03/22/17 07:52 03/23/17 09:52 Normal Saline - IV Not Given ASDIR CHELA Lactobacillus Acidophilus 1 tab 03/22/17 10:00 03/23/17 09:57 Bacid - PO Not Given DAILY CHELA Methadone HCl 80 mg/ Methadone 85 mg 03/21/17 10:45 03/23/17 09:56 HCl 5 mg PO 85 mg DAILY CHELA Administration Metoclopramide HCl 10 mg 03/22/17 07:52 Reglan Injection - IVPB Q6H PRN NAUSEA AND/OR VOMITING Polyethylene Glycol 17 gm 03/21/17 14:00 03/23/17 05:50 Miralax (For Daily Use) - PO Not Given TID CHELA Quetiapine Fumarate 200 mg/ 225 mg 03/22/17 22:00 03/22/17 23:26 Quetiapine Fumarate 25 mg PO 225 mg HS CHELA Administration Objective: Vital Signs Period Temp Pulse Resp BP Sys/Nova Pulse Ox Last 24 Hr 98.4 F-99.2 F 78-96 18-20 126-140/72-87 95 Physical Exam: General: NAD, A&Ox3 Lungs: CTA bilaterally Heart: RRR, S1S2 Abd: Distended. Diffuse mild tenderness throughout. Normoactive bowel sounds Ext: Warm, well-perfused, 2+ DP/PT bilaterally Neuro: CN 2-12 intact CBCD WBC 11.9 K/mm3 (4.0-10.0) H 03/23/17 06:10 RBC 3.69 M/mm3 (4.00-5.60) L 03/23/17 06:10 Hgb 10.4 GM/dL (11.7-16.9) L 03/23/17 06:10 Hct 31.1 % (35.4-49) L 03/23/17 06:10 MCV 84.3 fl (80-96) 03/23/17 06:10 MCHC 33.4 g/dl (32.0-35.9) 03/23/17 06:10 RDW 13.5 % (11.9-15.9) 03/23/17 06:10 Plt Count 248 K/MM3 (134-434) 03/23/17 06:10 MPV 7.8 fl (7.5-11.1) 03/23/17 06:10 CMP Sodium 139 mmol/L (136-145) 03/23/17 06:10 Potassium 3.5 mmol/L (3.5-5.1) 03/23/17 06:10 Chloride 104 mmol/L (98-107) 03/23/17 06:10 Carbon Dioxide 25 mmol/L (21-32) 03/23/17 06:10 Anion Gap 10 (8-16) 03/23/17 06:10 BUN 11 mg/dL (7-18) D 03/23/17 06:10 Creatinine 0.8 mg/dL (0.7-1.3) 03/23/17 06:10 Creat Clearance w eGFR > 60 (>60) 03/23/17 06:10 Random Glucose 82 mg/dL (74-106) D 03/23/17 06:10 Calcium 7.2 mg/dL (8.5-10.1) L 03/23/17 06:10 Total Bilirubin 0.6 mg/dL (0.2-1.0) 03/23/17 06:10 AST 21 U/L (15-37) 03/23/17 06:10 ALT 17 U/L (12-78) 03/23/17 06:10 Alkaline Phosphatase 85 U/L (45-117) 03/23/17 06:10 Total Protein 5.6 g/dl (6.4-8.2) L 03/23/17 06:10 Albumin 2.1 g/dl (3.4-5.0) L 03/23/17 06:10 Microbiology 03/19/17 17:00 Blood - Peripheral Venous Blood Culture - Preliminary NO GROWTH OBTAINED AFTER 72 HOURS, INCUBATION TO CONTINUE FOR 2 DAYS. 03/19/17 17:15 Blood - Peripheral Venous Blood Culture - Preliminary NO GROWTH OBTAINED AFTER 72 HOURS, INCUBATION TO CONTINUE FOR 2 DAYS. Assessment: This is a 46 year old male with PMHx of substance abuse (on methadone), GERD, chronic constipation, PTSD, agoraphobia, HCV, who presented to the ED with intermittent abdominal pain and was found to have acute cholecystitis Plan: 1) GI: Acute cholecystitis with cholelithiasis - MRCP with stone in gallbladder neck - For Cholecytectomy and intraoperative cholangiogram today - Continue Zosyn - Continue NPO status and IV fluids - Pain management - There are no absolute contraindications with proceeding for surgery tomorrow. The patient is low risk for a moderate risk procedure. He has no signs of ACS, denies chest pain, EKG NSR. - Appreciate surgery consult - Appreciate ID consult 2) Psych: Opioid dependence, on Methadone - Continue verified dose PTSD, agorophobia - Continue Seroquel - Continue Clonidine - Continue Buspar 3) GI: Constipation - Resolved 4) F/E/N: - NPO - IV fluids 5) Prophylaxis: - Hold all chemical DVT prophylaxis for surgery today - SCDs bilaterally 6) Dispo: - Requires continued inpatient care CODE STATUS: FULL CODE Visit type - Emergency Visit Emergency Visit: Yes ED Registration Date: 03/19/17 Care time: The patient presented to the Emergency Department on the above date and was hospitalized for further evaluation of their emergent condition. - New Patient This patient is new to me today: No - Critical Care Critical Care patient: No
--- NOTE | 2017-03-23 11:52 | PN ---
Progress Note (short form) - Note Progress Note: GI NOte: RUQ pain persists. LFTs remain normal. Anticipate cholecystectomy and IOC today.
[2017-03-23] MEDS ORDERED: ceFAZolin SODIUM 1 GM VIAL IVPB ONE (13:14)
[2017-03-23 14:10] LABS: HEP B SURFACE AB Reactive (.); SERUM IRON 17 ug/dL (38-169); TOTAL IRON BINDING CAPACITY 172 ug/dL (250-450); UIBC 155 ug/dL (111-343)
[2017-03-23] MEDS ORDERED: BUPIVACAINE HCL/PF 0.5% (5MG/ML) 10 ML VIAL IJ ONE (16:00)
[2017-03-23] MEDS: HYDROmorphone HCL CARPU-JECT 2 MG/1 ML DISP.SYRIN ONE ×2 (16:40→16:50)
[2017-03-23] MEDS ORDERED: IBUPROFEN 800 MG/8 ML IJ IVPB ONE (16:41)
[2017-03-23] MEDS ORDERED: LACTATED RINGERS SOLUTION 1,000 ML IV SCH (16:45)
[2017-03-23] MEDS: IBUPROFEN 800 MG/8 ML IJ IVPB SCH ×2 (17:00→18:18)
[2017-03-23] MEDS ORDERED: ONDANSETRON 4 MG/2 ML VIAL IVPB PRN (17:15)
--- NOTE | 2017-03-23 17:21 | OP ---
Operative Note - Note: Operative Date: 03/23/17 Pre-Operative Diagnosis: acute calculous cholecystitis Operation: laparoscopic cholecystectomy Findings: gangrenous gallbladder with dense rind and overlying adhesions, intrahepatic, decompressed of dark bile; able to staple across base of gallbladder just above cystic duct; large stone in gb, no active bleeding at end of case; STAN left in gallbladder fossa/liver bed Post-Operative Diagnosis: Other (acute and chronic gangrenous cholecystitis with gallstones) Surgeon: Jimbo Smith Rim Buster: Manoj Locke Anesthesia: General, Local (20ml 0.5% marcaine) Specimens Removed: gallbladder with stones to pathology Estimated Blood Loss (mls): 100 Drains & Tubes with Location: STAN in gallbladder fossa/liver bed Fluid Volume Replaced (mls): 1,800 (crystalloid) Operative Report Dictated: Yes
[2017-03-23] MEDS ORDERED: OXYCODONE/APAP 5/325MG COMBO TABLET PO PRN (17:26)
[2017-03-23] MEDS ORDERED: BISACODYL 10 MG SUPP.RECT RC PRN (17:26)
[2017-03-23] MEDS: LACTATED RINGERS SOLUTION 1,000 ML IV SCH (17:49)
[2017-03-23] MEDS: oxyCODONE HCL 5 MG TABLET PO PRN (20:19)
[2017-03-23] MEDS ORDERED: PT OWN MED DRAWER 7, Y5N ONE ×2 (22:47→23:59)
[2017-03-23] MEDS: QUETIAPINE FUMARATE PO SCH (23:00)
[2017-03-24] MEDS ORDERED: PT OWN MED DRAWER 7, Y5N ONE ×2 (01:33→22:21)
[2017-03-24] MEDS: PIPERACILLIN/TAZOB 4.5 GM 4.5 GM in DEXTROSE 5%-WATER 100 ML IVPB SCH ×3 (02:00→18:18)
[2017-03-24] MEDS: LACTATED RINGERS SOLUTION 1,000 ML IV SCH ×3 (02:00→22:24)
[2017-03-24] MEDS: oxyCODONE HCL 5 MG TABLET PO PRN ×2 (03:26→09:11)
[2017-03-24] MEDS ORDERED: METHADONE HCL 5 MG TABLET ONE (05:40)
[2017-03-24] MEDS ORDERED: METHADONE HCL 40 MG DISPERSABLE TABLET ONE (05:40)
[2017-03-24] MEDS: METHADONE 80 MG, METHADONE 5 MG PO SCH (05:48)
[2017-03-24] MEDS: clonazePAM 0.5 MG TABLET PO SCH ×3 (05:48→22:24)
[2017-03-24] MEDS: busPIRone HCL 5 MG TABLET PO SCH ×3 (05:48→22:24)
[2017-03-24 08:12] LABS: ANION GAP 7 (8-16); CALCIUM 7.7 mg/dL (8.5-10.1); CO2 31 mmol/L (21-32); CREATININE 0.7 mg/dL (0.7-1.3); GLUCOSE,RANDOM 123 mg/dL (74-106); SGOT/AST 48 U/L (15-37); SGPT/ALT 36 U/L (12-78)
[2017-03-24 08:15] LABS: ALK PHOS 77 U/L (45-117); BILIRUBIN,TOTAL 0.4 mg/dL (0.2-1.0); TOT PROT 5.5 g/dl (6.4-8.2)
[2017-03-24 08:54] LABS: BASOPHIL 0.2 % (0-2.0); MCH 28.1 pg (25.7-33.7); MCHC 33.5 g/dl (32.0-35.9); MEAN CELL VOLUME 83.9 fl (80-96); MEAN PLT VOLUME 7.7 fl (7.5-11.1); NEUTROPHILS 86.4 % (42.8-82.8); PLATELET COUNT 271 K/MM3 (134-434); RDW 13.4 % (11.9-15.9); WHITE BLOOD COUNT 10.5 K/mm3 (4.0-10.0)
[2017-03-24] MEDS: ACETAMINOPHEN 325 MG TABLET (FP) PO PRN (09:13)
[2017-03-24] MEDS: LACTOBACILLUS ACIDOPHILUS 1 EACH TAB (FP) PO SCH (09:15)
[2017-03-24] MEDS: cloNIDine HCL 0.1 MG TABLET PO SCH ×2 (09:15→22:23)
[2017-03-24] MEDS ORDERED: DEXTROSE 5%-WATER 100 ML IVPB ONE (09:28)
[2017-03-24] MEDS ORDERED: PIPERACILLIN/TAZOBACTAM 4.5 GM VIAL IVPB ONE (09:28)
[2017-03-24] MEDS ORDERED: PANTOPRAZOLE SODIUM 100 ML IVPB SCH (10:00)
[2017-03-24] MEDS ORDERED: SODIUM CHLORIDE 100 ML IVPB ONE (10:43)
[2017-03-24] MEDS ORDERED: PANTOPRAZOLE SODIUM 40 MG VIAL ONE (10:43)
--- NOTE | 2017-03-24 10:55 | OP ---
DATE OF OPERATION: 03/23/2017 PREOPERATIVE DIAGNOSIS: [id number] cholecystitis. POSTOPERATIVE DIAGNOSIS: Llpka-[id number] cholecystitis. SURGERY: Laparoscopic cholecystectomy. SURGEON: Lazaro Locke MD CHASER TAR: Jimbo Smith MD ANESTHESIA: General endotracheal. ESTIMATED BLOOD LOSS: 200 mL OPERATIVE FINDINGS: The patient with a necrotic/gangrenous gallbladder with very difficult and inflamed anatomy, and we were unable to perform the cholangiogram. DESCRIPTION OF PROCEDURE: The patient was taken to the OR after confirming name, date of , medical record number. He was placed in supine position, had SCDs for DVT prophylaxis. He was then induced and intubated by the anesthesiologist. After his appropriate perioperative antibiotics, he was then induced and intubated, and he was prepped and draped in usual sterile fashion. A timeout was then performed. A 1-inch supraumbilical incision was made, taking great care to stay away from his prior umbilical hernia repair with mesh. We bluntly dissected down to the fascia, used electrocautery to go through the fascia, and then, used a Tracy clamp to go through his peritoneum. We then performed a finger sweep and then placed a 10-mm balloon, Leandro-type trocar inside the abdomen, and insufflated the abdomen to a pressure of 15 mmHg. It was immediately noted that there were some adhesions in the right upper quadrant, and then, we placed 5-mm trocars in the subxiphoid and midclavicular line. These adhesions were bluntly taken down, and then, we were finally able to place another 5-mm trocar in the right anterior axillary line. This was all done with transillumination to avoid injury to abdominal wall blood vessels. The patient was then placed in a reverse Trendelenburg position. Then, using blunt dissection and electrocautery but mostly blunt dissection, we dissected a very inflamed omentum off of the gallbladder. This was very difficult because of the degree of inflammation, and the dissection was done with mostly the suction retail sales director. Once we were able to get most of this rind off of the gallbladder, it was not entirely clear the junction of the common bile duct and the cystic duct, and, therefore, at a spot suitable, probably in the very distal gallbladder near the neck, the decision was made to do a partial cholecystectomy. We were able to get underneath the gallbladder and visualize a tubular structure going into the gallbladder. There was a large stone which was pushed up into the specimen, and then, once we were able to get around it, we then changed the subxiphoid 5-mm trocar to a 12-mm trocar, and then, we had to use a 45-mm blue load stapler x2 to staple off the distal gallbladder. Again, this was done because we did not feel confident dissecting near the cystic duct and common bile duct junction, and we were concerned that we did not want any kind of common bile duct injury. There was no readily identifiable blood vessel. However, some of the tissue we did take, we used electrocautery, and there was no visible bleeding after we the gallbladder from the distal gallbladder. We then used hook electrocautery to take the gallbladder off of the liver bed, and again, this was very difficult as the planes were very obscured. We did get into the capsule of liver at 1 point, and we used hook electrocautery to stop the bleeding. With the gallbladder off of the liver bed, we also, unfortunately, did get into the gallbladder, and then, we put it in a 10-mm specimen retrieval bag and sent it off the field for permanent examination. Some inflamed tissue which had been dissected off was also put in the bag prior to removal. Once the specimen was removed, we then placed a size 10 STAN drain in the gallbladder fossa next to the distal gallbladder in case of stump blowout. Hemostasis was noted to be excellent. We then irrigated and aspirated any fluid. Again, we were satisfied with the hemostasis, and then, we closed the subxiphoid 12-mm trocar with a laparoscopically placed 0 Vicryl figure-of-8 suture. We then desufflated the abdomen and then tied down the suture. A previously placed suture, which was a figure-of-8, was then tied in the supraumbilical region, and then, we used 4-0 Monocryl to reapproximate the skin and subcutaneous tissues. All counts were correct. LAZARO LOCKE M.D. [id number]
[2017-03-24] MEDS: ALBUTEROL SO4 2.5/IPRATROPIUM 0.5 INH SOL 3 ML VIAL.NEB. NEB PRN ×2 (10:59→23:17)
[2017-03-24] MEDS: HYDROmorphone HCL CARPU-JECT 1 MG/1 ML DISP.SYRIN IVPB PRN ×3 (11:04→21:51)
--- NOTE | 2017-03-24 11:06 | PN ---
Progress Note (short form) - Note Progress Note: Subjective: The patient was seen and examined at the bedside he is post op day 1. He is stating still with severe abdominal pain. Right abdominal STAN in place with bloody drainage Current Medications Generic Name Dose Route Start Last Admin Trade Name Freq PRN Reason Stop Dose Admin Acetaminophen 650 mg 03/23/17 17:58 03/24/17 09:13 Tylenol - PO 650 mg Q6H PRN Administration PAIN Albuterol/Ipratropium 1 amp 03/23/17 17:26 03/24/17 10:59 Duoneb - NEB 1 amp Q6H PRN Administration SHORTNESS OF BREATH Bisacodyl 10 mg 03/23/17 17:26 Dulcolax Suppository - RC PRN PRN CONSTIPATION Buspirone HCl 10 mg 03/23/17 22:00 03/24/17 05:48 Buspar - PO 10 mg TID CHELA Administration Clonazepam 0.5 mg 03/23/17 22:00 03/24/17 05:48 Klonopin - PO 0.5 mg TID CHELA Administration Clonidine 0.2 mg 03/23/17 22:00 03/24/17 09:15 Catapres - PO 0.2 mg BID CHELA Administration Hydromorphone HCl 1 mg 03/23/17 17:26 03/23/17 23:00 Dilaudid Injection - IVPB 1 mg Q4H PRN Administration SEVERE PAIN Lactated Ringer's 1,000 mls @ 125 mls/hr 03/23/17 17:26 03/24/17 02:00 Lactated Ringers Solution IV 125 mls/hr ASDIR CHELA Administration Piperacillin Sod/Tazobactam 100 mls @ 200 mls/hr 03/23/17 18:00 03/24/17 02:00 Sod 4.5 gm/ Dextrose IVPB 200 mls/hr Q8H-IV CHELA Administration Protocol Pantoprazole Sodium 40 mg/ 100 mls @ 200 mls/hr 03/24/17 10:00 Sodium Chloride IVPB DAILY CHELA Ibuprofen 800 mg 03/23/17 17:26 Caldolor Injection - IVPB Q8H PRN FEVER OR PAIN Lactobacillus Acidophilus 1 tab 03/24/17 10:00 03/24/17 09:15 Bacid - PO 1 tab DAILY CHELA Administration Methadone HCl 80 mg/ Methadone 85 mg 03/24/17 06:00 03/24/17 05:48 HCl 5 mg PO 85 mg DAILY@0600 CHELA Administration Ondansetron HCl 4 mg 03/23/17 17:15 Zofran Injection IVPB Q4H PRN NAUSEA AND/OR VOMITING Oxycodone HCl 10 mg 03/23/17 17:58 03/24/17 09:11 Roxicodone - PO 10 mg Q6H PRN Administration PAIN LEVEL 6-10 Polyethylene Glycol 17 gm 03/25/17 14:00 Miralax (For Daily Use) - PO TID CHELA Quetiapine Fumarate 200 mg/ 225 mg 03/23/17 22:00 03/23/17 23:00 Quetiapine Fumarate 25 mg PO 225 mg HS CHELA Administration Objective: Vital Signs Period Temp Pulse Resp BP Sys/Nova Pulse Ox Last 24 Hr 97.3 F-98.9 F 54-98 16-20 120-151/65-88 97-99 Physical Exam: General: NAD, A&Ox3 Lungs: CTA bilaterally Heart: RRR, S1S2 Abd: Distended. Diffuse tenderness throughout. Lap sites with dressings, c/d/i. Right abdominal STAN with bloody drainage. Normoactive bowel sounds Ext: Warm, well-perfused, 2+ DP/PT bilaterally Neuro: CN 2-12 intact CBCD WBC 10.5 K/mm3 (4.0-10.0) H 03/24/17 06:00 RBC 3.68 M/mm3 (4.00-5.60) L 03/24/17 06:00 Hgb 10.3 GM/dL (11.7-16.9) L 03/24/17 06:00 Hct 30.9 % (35.4-49) L 03/24/17 06:00 MCV 83.9 fl (80-96) 03/24/17 06:00 MCHC 33.5 g/dl (32.0-35.9) 03/24/17 06:00 RDW 13.4 % (11.9-15.9) 03/24/17 06:00 Plt Count 271 K/MM3 (134-434) 03/24/17 06:00 MPV 7.7 fl (7.5-11.1) 03/24/17 06:00 CMP Sodium 139 mmol/L (136-145) 03/24/17 06:00 Potassium 4.0 mmol/L (3.5-5.1) 03/24/17 06:00 Chloride 101 mmol/L (98-107) 03/24/17 06:00 Carbon Dioxide 31 mmol/L (21-32) D 03/24/17 06:00 Anion Gap 7 (8-16) L 03/24/17 06:00 BUN 10 mg/dL (7-18) 03/24/17 06:00 Creatinine 0.7 mg/dL (0.7-1.3) 03/24/17 06:00 Creat Clearance w eGFR > 60 (>60) 03/24/17 06:00 Random Glucose 123 mg/dL (74-106) H D 03/24/17 06:00 Calcium 7.7 mg/dL (8.5-10.1) L 03/24/17 06:00 Total Bilirubin 0.4 mg/dL (0.2-1.0) D 03/24/17 06:00 AST 48 U/L (15-37) H D 03/24/17 06:00 ALT 36 U/L (12-78) D 03/24/17 06:00 Alkaline Phosphatase 77 U/L (45-117) 03/24/17 06:00 Total Protein 5.5 g/dl (6.4-8.2) L 03/24/17 06:00 Albumin 2.0 g/dl (3.4-5.0) L 03/24/17 06:00 Microbiology 03/19/17 17:00 Blood - Peripheral Venous Blood Culture - Preliminary NO GROWTH OBTAINED AFTER 96 HOURS, INCUBATION TO CONTINUE FOR 1 DAYS. 03/19/17 17:15 Blood - Peripheral Venous Blood Culture - Preliminary NO GROWTH OBTAINED AFTER 96 HOURS, INCUBATION TO CONTINUE FOR 1 DAYS. Assessment: This is a 46 year old male with PMHx of substance abuse (on methadone), GERD, chronic constipation, PTSD, agoraphobia, HCV, who presented to the ED with intermittent abdominal pain and was found to have acute cholecystitis Plan: 1) GI: Acute cholecystitis with cholelithiasis - S/p cholecytectomy on 03/23/17 - Continue Zosyn - Pain management - Advance diet per surgery - Appreciate surgery consult - Appreciate ID consult 2) Psych: Opioid dependence, on Methadone - Continue 85mg po daily PTSD, agorophobia - Continue Seroquel - Continue Clonidine - Continue Buspar 3) GI: Constipation - Resolved 4) F/E/N: - Clear liquid diet - IV fluids 5) Prophylaxis: - Chemical DVT prophylaxis per surgery - SCDs bilaterally 6) Dispo: - Requires continued inpatient care CODE STATUS: FULL CODE Visit type - Emergency Visit Emergency Visit: Yes ED Registration Date: 03/19/17 Care time: The patient presented to the Emergency Department on the above date and was hospitalized for further evaluation of their emergent condition. - New Patient This patient is new to me today: No - Critical Care Critical Care patient: No
[2017-03-24] MEDS: PANTOPRAZOLE SODIUM 40 MG in SODIUM CHLORIDE 100 ML IVPB SCH (11:07)
--- NOTE | 2017-03-24 12:15 | PN ---
GI Progress Note Subjective: POD 1, s/p Lap Cinthya yesterday: necrotic gallbladder described by surgeon, unable to perform - Objective Vital Signs: Vital Signs Temperature 97.3 F L 03/24/17 06:58 Pulse Rate 60 03/24/17 06:58 Respiratory Rate 20 03/24/17 06:58 Blood Pressure 122/72 03/24/17 06:58 O2 Sat by Pulse Oximetry (%) 97 03/23/17 17:40 Constitutional: Calm Cardiovascular: Yes: Regular Rate and Rhythm Gastrointestinal Inspection: No: Distention ...Auscultate: Yes: Normoactive Bowel Sounds ...Palpate: Yes: Tenderness (RUQ), Other (dressed trochar scars, + RUQ STAN drain in place with serosanguinous fluid) ...Percussion: No: Tympanitic Edema: No Neurological: Yes: Alert, Oriented Labs: CBC, BMP 03/24/17 06:00 03/24/17 06:00 INR, PTT INR 1.07 (0.82-1.09) 03/19/17 17:05 Hepatic Panel Total Bilirubin 0.4 mg/dL (0.2-1.0) D 03/24/17 06:00 Direct Bilirubin 0.2 mg/dL (0.0-0.2) 03/22/17 06:05 AST 48 U/L (15-37) H D 03/24/17 06:00 ALT 36 U/L (12-78) D 03/24/17 06:00 Alkaline Phosphatase 77 U/L (45-117) 03/24/17 06:00 Albumin 2.0 g/dl (3.4-5.0) L 03/24/17 06:00 Problem List - Problems (1) Calculus of gallbladder with acute cholecystitis without obstruction Assessment/Plan: POD #1 Intraop cholangiogram unable to be performed given that the GB was necrotic Monitoring LFTs's given previously noted dilated CBD. ? if passed stone. Will need further evaluation once acute issues are resolved Code(s): K80.00 - CALCULUS OF GALLBLADDER W ACUTE CHOLECYST W/O OBSTRUCTION
--- NOTE | 2017-03-24 12:36 | PN ---
Progress Note, Physician Chief Complaint: RUQ pain History of Present Illness: POD1 s/p laparoscopic cholecystectomy with finding of gangrenous gallbladder Seen and examined in bed, awake, alert, comfortable. Had Percocet and Dilaudid recently and states meds are working, pain is less - was more than 6, now none without palpation. No flatus yet, but feels like he could move bowels. No nausea or vomiting. Tolerated sips of clears thus far. Pain is mainly in RUQ and incisions. Feels breathing is much better after neb treatment. STAN drain put out ~20ml serosanguineous fluid. - Current Medication List Current Medications: Active Medications Acetaminophen (Tylenol -) 650 mg PO Q6H PRN PRN Reason: PAIN Last Admin: 03/24/17 09:13 Dose: 650 mg Albuterol/Ipratropium (Duoneb -) 1 amp NEB Q6H PRN PRN Reason: SHORTNESS OF BREATH Last Admin: 03/24/17 10:59 Dose: 1 amp Bisacodyl (Dulcolax Suppository -) 10 mg RC PRN PRN PRN Reason: CONSTIPATION Buspirone HCl (Buspar -) 10 mg PO TID [facility] Last Admin: 03/24/17 05:48 Dose: 10 mg Clonazepam (Klonopin -) 0.5 mg PO TID [facility] Last Admin: 03/24/17 05:48 Dose: 0.5 mg Clonidine (Catapres -) 0.2 mg PO BID [facility] Last Admin: 03/24/17 09:15 Dose: 0.2 mg Enoxaparin Sodium (Lovenox -) 40 mg SQ DAILY [facility] Hydromorphone HCl (Dilaudid Injection -) 1 mg IVPB Q4H PRN PRN Reason: SEVERE PAIN Last Admin: 03/24/17 11:04 Dose: 1 mg Lactated Ringer's (Lactated Ringers Solution) 1,000 mls @ 125 mls/hr IV ASDIR [facility] Last Admin: 03/24/17 02:00 Dose: 125 mls/hr Piperacillin Sod/Tazobactam (Sod 4.5 gm/ Dextrose) 100 mls @ 200 mls/hr IVPB Q8H-IV [facility] PRN Reason: Protocol Last Admin: 03/24/17 12:05 Dose: 200 mls/hr Pantoprazole Sodium 40 mg/ (Sodium Chloride) 100 mls @ 200 mls/hr IVPB DAILY [facility] Last Admin: 03/24/17 11:07 Dose: 200 mls/hr Ibuprofen (Caldolor Injection -) 800 mg IVPB Q8H PRN PRN Reason: FEVER OR PAIN Lactobacillus Acidophilus (Bacid -) 1 tab PO DAILY [facility] Last Admin: 03/24/17 09:15 Dose: 1 tab Methadone HCl 80 mg/ Methadone (HCl 5 mg) 85 mg PO DAILY@0600 [facility] Last Admin: 03/24/17 05:48 Dose: 85 mg Ondansetron HCl (Zofran Injection) 4 mg IVPB Q4H PRN PRN Reason: NAUSEA AND/OR VOMITING Oxycodone HCl (Roxicodone -) 10 mg PO Q6H PRN PRN Reason: PAIN LEVEL 6-10 Last Admin: 03/24/17 09:11 Dose: 10 mg Polyethylene Glycol (Miralax (For Daily Use) -) 17 gm PO TID [facility] Quetiapine Fumarate 200 mg/ (Quetiapine Fumarate 25 mg) 225 mg PO [facility] Last Admin: 03/23/17 23:00 Dose: 225 mg - Objective Vital Signs: Vital Signs Temperature 97.3 F L 03/24/17 06:58 Pulse Rate 60 03/24/17 06:58 Respiratory Rate 20 03/24/17 06:58 Blood Pressure 122/72 03/24/17 06:58 O2 Sat by Pulse Oximetry (%) 97 03/23/17 17:40 Constitutional: Yes: No Distress, Calm, Obese Eyes: Yes: Conjunctiva Clear. No: Sclera Icterus Cardiovascular: Yes: Regular Rate and Rhythm. No: Murmur Respiratory: Yes: Regular, CTA Bilaterally, Diminished (somewhat at right base) . No: Wheezes Gastrointestinal: Yes: Soft, Abdomen, Obese, Distention, Hypoactive Bowel Sounds , Tenderness (RUQ and incisional without rebound or guarding), Other (STAN drain right lateral abdomen with small amt serosang in bulb - dressing changed) Edema: No Integumentary: Yes: Incision (x4 on abdomen). No: Jaundice Wound/Incision: Yes: Dressing Dry and Intact (x3, drain dressing with yellow staining - changed) Neurological: Yes: Alert, Oriented Psychiatric: Yes: Alert, Oriented Labs: CBC, BMP 03/24/17 06:00 03/24/17 06:00 INR, PTT INR 1.07 (0.82-1.09) 03/19/17 17:05 CMP Sodium 139 mmol/L (136-145) 03/24/17 06:00 Potassium 4.0 mmol/L (3.5-5.1) 03/24/17 06:00 Chloride 101 mmol/L (98-107) 03/24/17 06:00 Carbon Dioxide 31 mmol/L (21-32) D 03/24/17 06:00 Anion Gap 7 (8-16) L 03/24/17 06:00 BUN 10 mg/dL (7-18) 03/24/17 06:00 Creatinine 0.7 mg/dL (0.7-1.3) 03/24/17 06:00 Creat Clearance w eGFR > 60 (>60) 03/24/17 06:00 Random Glucose 123 mg/dL (74-106) H D 03/24/17 06:00 Calcium 7.7 mg/dL (8.5-10.1) L 03/24/17 06:00 Phosphorus 2.7 mg/dL (2.5-4.9) 03/23/17 06:10 Magnesium 2.3 mg/dL (1.8-2.4) 03/23/17 06:10 Iron 17 ug/dL (38-169) L 03/22/17 06:05 TIBC 172 ug/dL (250-450) L 03/22/17 06:05 Iron Saturation 10 % (15-55) L 03/22/17 06:05 Ferritin 470.081 ng/ml (16.4-293.9) H 03/22/17 06:05 Total Bilirubin 0.4 mg/dL (0.2-1.0) D 03/24/17 06:00 Direct Bilirubin 0.2 mg/dL (0.0-0.2) 03/22/17 06:05 AST 48 U/L (15-37) H D 03/24/17 06:00 ALT 36 U/L (12-78) D 03/24/17 06:00 Alkaline Phosphatase 77 U/L (45-117) 03/24/17 06:00 C-Reactive Protein 23.9 MG/DL (0.00-0.3) H 03/22/17 06:05 Total Protein 5.5 g/dl (6.4-8.2) L 03/24/17 06:00 Albumin 2.0 g/dl (3.4-5.0) L 03/24/17 06:00 Total Amylase 26 U/L (25-115) 03/23/17 06:10 Lipase 137 U/L (73-393) 03/24/17 06:00 Tumor Marker AFP 2.3 ng/ml (0.0-8.3) 03/22/17 06:05 Problem List - Problems (1) Calculus of gallbladder with acute cholecystitis without obstruction Assessment/Plan: POD1 s/p lap marga with gangrenous gallbladder/chronic cholecystitis with stones doing very well pain controlled with po and IV meds will use Caldolor - Percocet - Dilaudid stepwise over baseline Methadone ok for clear liquid diet continue antibiotics and drain encouraged OOB/ambulation/IS/pulm toilet ok for prophylactic lovenox - ordered Code(s): K80.00 - CALCULUS OF GALLBLADDER W ACUTE CHOLECYST W/O OBSTRUCTION (2) Common bile duct dilation Assessment/Plan: IOC was technically not feasible - if he has symptoms postop, may need ERCP appreciate GI followup Code(s): K83.8 - OTHER SPECIFIED DISEASES OF BILIARY TRACT (3) Bipolar disorder Assessment/Plan: PTSD, agoraphobia (per pt), bipolar per chart history continue home meds no acute issues at this time Code(s): F31.9 - BIPOLAR DISORDER, UNSPECIFIED Qualifiers: Qualified Code(s): F31.9 - Bipolar disorder, unspecified (4) Constipation Assessment/Plan: resolved - will continue stool softener Code(s): K59.00 - CONSTIPATION, UNSPECIFIED Qualifiers: Qualified Code(s): K59.03 - Drug induced constipation (5) Hypertension Assessment/Plan: continue clonidine Code(s): I10 - ESSENTIAL (PRIMARY) HYPERTENSION Qualifiers: Qualified Code(s): I10 - Essential (primary) hypertension (6) Methadone maintenance therapy patient Assessment/Plan: home dose confirmed and continued Code(s): F11.20 - OPIOID DEPENDENCE, UNCOMPLICATED (7) Polysubstance abuse Assessment/Plan: daily tobacco and marijuana user continue alb nebs prn consider SW consult Code(s): F19.10 - OTHER PSYCHOACTIVE SUBSTANCE ABUSE, UNCOMPLICATED
[2017-03-24] MEDS: ENOXAPARIN NA (PORCINE) 40 MG/0.4 ML DISP.SYRIN SQ SCH (13:02)
[2017-03-24 14:14] LABS: HCV LOG 10 6.115 (.)
--- NOTE | 2017-03-24 14:55 | PN ---
Progress Note (short form) - Note Progress Note: Anesthesiology Postoperative Follow up Note 46 yo M with PMH of polysubstance abuse on methadone, GERD, PTSD/agoraphobia, HCV who is POD1 cholecystectomy. EBL 100cc. Patient is doing well, pain is well controlled on Percocet, Dilaudid PRN, Caldolor, and he received his Methadone this morning. He is also receving Clonazepam. He reports his breathing as shallow but he is walking short distances and using the incentive spirometer. He is tolerating clears. VSS, labs stable. 46 yo M POD1 cholecystectomy, doing well. Continue plan per primary team. Estela Tellez MD Anesthesiology
[2017-03-24] MEDS: IBUPROFEN 800 MG/8 ML IJ IVPB PRN (15:19)
[2017-03-24] MEDS: QUETIAPINE FUMARATE PO SCH (22:22)
[2017-03-25] MEDS ORDERED: DEXTROSE 5%-WATER 100 ML IVPB ONE ×3 (01:29→17:59)
[2017-03-25] MEDS ORDERED: PIPERACILLIN/TAZOBACTAM 4.5 GM VIAL IVPB ONE ×3 (01:29→17:59)
[2017-03-25] MEDS: PIPERACILLIN/TAZOB 4.5 GM 4.5 GM in DEXTROSE 5%-WATER 100 ML IVPB SCH ×3 (01:58→18:03)
[2017-03-25] MEDS ORDERED: METHADONE HCL 40 MG DISPERSABLE TABLET ONE (05:07)
[2017-03-25] MEDS ORDERED: METHADONE HCL 5 MG TABLET ONE (05:07)
[2017-03-25] MEDS: METHADONE 80 MG, METHADONE 5 MG PO SCH (05:28)
[2017-03-25] MEDS: busPIRone HCL 5 MG TABLET PO SCH ×3 (05:28→22:03)
[2017-03-25] MEDS: clonazePAM 0.5 MG TABLET PO SCH ×3 (05:29→22:03)
[2017-03-25] MEDS: IBUPROFEN 800 MG/8 ML IJ IVPB PRN (07:53)
[2017-03-25 08:07] LABS: FIBROSIS SCORE. 0.06 (0.00-0.21); HCV ALPHA 2 MACRO CHART 100 mg/dL (110-276); HCV APOLIPOPROTEIN A1 84 mg/dL (101-178); HCV GGT 96 IU/L (0-65); HCV HAPTOGLOBIN 368 mg/dL (34-200); HCV TBIL CHART 0.2 mg/dL (0.0-1.2); NECRO.INFLAM ACT.SCORE 0.03 (0.00-0.17); NECROINFLAM. ACTIVITY GRADE A0-No activity (.)
[2017-03-25 08:12] LABS: BASOPHIL 0.2 % (0-2.0); EOSINOPHIL 0.9 % (0-4.5); MCH 28.3 pg (25.7-33.7); MCHC 34.1 g/dl (32.0-35.9); MEAN CELL VOLUME 82.9 fl (80-96); MEAN PLT VOLUME 7.5 fl (7.5-11.1); PLATELET COUNT 252 K/MM3 (134-434); RDW 13.5 % (11.9-15.9); WHITE BLOOD COUNT 7.6 K/mm3 (4.0-10.0)
[2017-03-25 09:02] LABS: ALK PHOS 66 U/L (45-117); ANION GAP 9 (8-16); BILIRUBIN,TOTAL 0.5 mg/dL (0.2-1.0); CALCIUM 7.6 mg/dL (8.5-10.1); CO2 30 mmol/L (21-32); CREATININE 0.7 mg/dL (0.7-1.3); GLUCOSE,RANDOM 78 mg/dL (74-106); SGOT/AST 30 U/L (15-37); SGPT/ALT 30 U/L (12-78); TOT PROT 5.1 g/dl (6.4-8.2)
[2017-03-25] MEDS ORDERED: PANTOPRAZOLE SODIUM 40 MG VIAL ONE (09:14)
[2017-03-25] MEDS ORDERED: SODIUM CHLORIDE 100 ML IVPB ONE (09:14)
[2017-03-25] MEDS ORDERED: PT OWN MED DRAWER 7, Y5N ONE ×3 (09:14→21:34)
[2017-03-25] MEDS: HYDROmorphone HCL CARPU-JECT 1 MG/1 ML DISP.SYRIN IVPB PRN (09:17)
[2017-03-25] MEDS: LACTOBACILLUS ACIDOPHILUS 1 EACH TAB (FP) PO SCH (09:21)
[2017-03-25] MEDS: cloNIDine HCL 0.1 MG TABLET PO SCH ×2 (09:21→22:02)
[2017-03-25] MEDS: PANTOPRAZOLE SODIUM 40 MG in SODIUM CHLORIDE 100 ML IVPB SCH (09:22)
[2017-03-25] MEDS: ENOXAPARIN NA (PORCINE) 40 MG/0.4 ML DISP.SYRIN SQ SCH (09:34)
--- NOTE | 2017-03-25 09:45 | PN ---
GI Progress Note Subjective: No acute events Pain at trochar sites + liquid BM's today - Objective Vital Signs: Vital Signs Temperature 98 F 03/25/17 05:52 Pulse Rate 90 03/25/17 05:52 Respiratory Rate 20 03/25/17 05:52 Blood Pressure 150/90 03/25/17 05:52 O2 Sat by Pulse Oximetry (%) 96 03/24/17 22:00 Constitutional: Calm Eyes: No: Sclera Icterus Cardiovascular: Yes: Regular Rate and Rhythm Respiratory: Yes: CTA Bilaterally Gastrointestinal Inspection: No: Distention ...Auscultate: Yes: Normoactive Bowel Sounds ...Palpate: Yes: Tenderness (mainly at the trochar site just cephalad to the umbilicus) Edema: No Neurological: Yes: Alert, Oriented Labs: CBC, BMP 03/25/17 06:30 03/25/17 06:30 INR, PTT INR 1.07 (0.82-1.09) 03/19/17 17:05 Laboratory Tests 03/22/17 06:05 Hepatitis A Ab Total Negative Hep Bs Antigen Negative Hep Bs Antibody Reactive Hep B Core Total Ab Negative HCV Quantitation [id number] Problem List - Problems (1) Calculus of gallbladder with acute cholecystitis without obstruction Assessment/Plan: LFT's remain normal Will need follow-up of dilated CBD when acute issues are resolved Code(s): K80.00 - CALCULUS OF GALLBLADDER W ACUTE CHOLECYST W/O OBSTRUCTION (2) Hepatitis C Assessment/Plan: Patient aware of the diagnosis and tells me that there is a plan in place to have a armoured car escort evaluate him and treat him at the [facility] methadone clinic he goes to on [facility] in the [place] Code(s): B19.20 - UNSPECIFIED VIRAL HEPATITIS C WITHOUT HEPATIC COMA
[2017-03-25] MEDS ORDERED: IBUPROFEN 600 MG TABLET (FP) PO PRN (13:23)
[2017-03-25] MEDS ORDERED: ACETAMINOPHEN 325 MG TABLET (FP) PO PRN (13:24)
--- NOTE | 2017-03-25 13:27 | PATH ---
Surgical Pathology Report Patient Name: TRA PACK Med. Rec. #: [id number] /Age/Gender: 1970 (Age: 46) / M Account: [id number] Location: [facility] MED/SURG Taken: 03/23/2017 Received: 03/24/2017 Reported: 03/25/2017 Physicians: Franck Humphreys AGACNP Specimen(s) Received GALLBLADDER Clinical History Cholecystitis Final Diagnosis GALLBLADDER, CHOLECYSTECTOMY: ACUTE, CHRONIC, AND NECROTIZING CHOLECYSTITIS AND CHOLELITHIASIS. Electronically Signed Rosas Sewell M.D. Gross Description Received in formalin labeled "gallbladder," are multiple fragments of a previously opened gallbladder measuring 9.0 x 3.5 x 3.0 cm in aggregate. There is a 0.2 cm in length portion of cystic duct identified on the largest portion. The outer surface of the gallbladder is javier carranza to green with a focal gangrenous appearance. There is no bile present within the lumen. There is a 2.4 cm greatest dimension javier, ovoid cholelith identified within the lumen. The mucosa is green and focally eroded. The wall of the gallbladder ranges from 0.1-0.6 cm in thickness. Labor Mediator sections are submitted in one cassette. 03/24/201703/24/2017
[2017-03-25] MEDS: POLYETHYLENE GLYCOL 3350 119 GM BTL PO SCH ×2 (13:47→22:05)
--- NOTE | 2017-03-25 14:05 | PN ---
Progress Note (short form) - Note Progress Note: Pt seen and examined in room - up and ambulating. Pain is worse first thing in the morning - had Caldolor this am and then Dilaudid when the pain was still bad. Right now it is much better. He is tolerating clear liquids, had loose/ liquid stool. No nausea/vomiting. STAN drainage has been low - 30ml yesterday, 5ml so far today. There is ~20-25ml in bulb, serosanguineous with slight brown tinge, few bubbles with shaking. Vital Signs Period Temp Pulse Resp BP Sys/Nova Pulse Ox Last 24 Hr 97.8 F-98.1 F 71-90 18-20 132-154/72-93 96 PE: abdomen soft, obese, minimally/incisionally tender STAN drain site dressing saturated yellow - will change bulb with fluid as noted above dressings removed from other sites - akosua C/D/I CBC 03/25/17 06:30 CMP Sodium 142 mmol/L (136-145) 03/25/17 06:30 Potassium 3.4 mmol/L (3.5-5.1) L 03/25/17 06:30 Chloride 103 mmol/L (98-107) 03/25/17 06:30 Carbon Dioxide 30 mmol/L (21-32) 03/25/17 06:30 Anion Gap 9 (8-16) 03/25/17 06:30 BUN 11 mg/dL (7-18) 03/25/17 06:30 Creatinine 0.7 mg/dL (0.7-1.3) 03/25/17 06:30 Creat Clearance w eGFR > 60 (>60) 03/25/17 06:30 Random Glucose 78 mg/dL (74-106) D 03/25/17 06:30 Calcium 7.6 mg/dL (8.5-10.1) L 03/25/17 06:30 Phosphorus 2.7 mg/dL (2.5-4.9) 03/23/17 06:10 Magnesium 2.3 mg/dL (1.8-2.4) 03/23/17 06:10 Iron 17 ug/dL (38-169) L 03/22/17 06:05 TIBC 172 ug/dL (250-450) L 03/22/17 06:05 Iron Saturation 10 % (15-55) L 03/22/17 06:05 Ferritin 470.081 ng/ml (16.4-293.9) H 03/22/17 06:05 Total Bilirubin 0.5 mg/dL (0.2-1.0) D 03/25/17 06:30 Direct Bilirubin 0.2 mg/dL (0.0-0.2) 03/22/17 06:05 AST 30 U/L (15-37) D 03/25/17 06:30 ALT 30 U/L (12-78) 03/25/17 06:30 Alkaline Phosphatase 66 U/L (45-117) 03/25/17 06:30 Liver GGT 96 IU/L (0-65) H 03/22/17 06:05 Liver Total Bilirubin 0.2 mg/dL (0.0-1.2) 03/22/17 06:05 Liver Fibrosis ALT 13 IU/L (0-55) 03/22/17 06:05 Liver Haptoglobin 368 mg/dL (34-200) H 03/22/17 06:05 Liver Fibrosis Score 0.06 (0.00-0.21) 03/22/17 06:05 Liver Fibrosis Stage (.) 03/22/17 06:05 Necroinflammator Score 0.03 (0.00-0.17) 03/22/17 06:05 Necroinflam Pat Score (.) 03/22/17 06:05 Necroinflammator Grade A0-no activity (.) 03/22/17 06:05 C-Reactive Protein 23.9 MG/DL (0.00-0.3) H 03/22/17 06:05 Total Protein 5.1 g/dl (6.4-8.2) L 03/25/17 06:30 Albumin 2.0 g/dl (3.4-5.0) L 03/25/17 06:30 Apolipoprotein A-1 84 mg/dL (101-178) L 03/22/17 06:05 Total Amylase 26 U/L (25-115) 03/23/17 06:10 Lipase 137 U/L (73-393) 03/24/17 06:00 Tumor Marker AFP 2.3 ng/ml (0.0-8.3) 03/22/17 06:05 A/P: POD2 s/p lap marga with gangrenous gallbladder regular diet continue antibiotics until discharge po pain meds only - pain must be controlled on Tylenol/ibuprofen for d/c home continue drain for now - will assess in am hep C - pt has plan to see doctor through his clinic after d/c can f/u with GI to address CBD dilation in future postop instructions are in d/c plan - pt to f/u in clinic for staple removal Problem List - Problems (1) Calculus of gallbladder with acute cholecystitis without obstruction Code(s): K80.00 - CALCULUS OF GALLBLADDER W ACUTE CHOLECYST W/O OBSTRUCTION (2) Common bile duct dilation Code(s): K83.8 - OTHER SPECIFIED DISEASES OF BILIARY TRACT (3) Bipolar disorder Code(s): F31.9 - BIPOLAR DISORDER, UNSPECIFIED Qualifiers: Qualified Code(s): F31.9 - Bipolar disorder, unspecified (4) Constipation Code(s): K59.00 - CONSTIPATION, UNSPECIFIED Qualifiers: Qualified Code(s): K59.03 - Drug induced constipation (5) Hypertension Code(s): I10 - ESSENTIAL (PRIMARY) HYPERTENSION Qualifiers: Qualified Code(s): I10 - Essential (primary) hypertension (6) Methadone maintenance therapy patient Code(s): F11.20 - OPIOID DEPENDENCE, UNCOMPLICATED (7) Polysubstance abuse Code(s): F19.10 - OTHER PSYCHOACTIVE SUBSTANCE ABUSE, UNCOMPLICATED
--- NOTE | 2017-03-25 14:19 | PN ---
Physical Exam: SUBJECTIVE: Patient seen and examined at bedside. States he feels better post- op. OBJECTIVE: Vital Signs Period Temp Pulse Resp BP Sys/Nova Pulse Ox Last 24 Hr 97.4 F-98.1 F 65-90 18-20 132-154/72-93 96 GENERAL: The patient is awake, alert, and fully oriented, in no acute distress. HEAD: Normal with no signs of trauma. EYES: PERRL, extraocular movements intact, sclera anicteric, conjunctiva clear. No ptosis. ENT: Ears normal, nares patent, oropharynx clear without exudates, moist mucous membranes. NECK: Trachea midline, full range of motion, supple. LUNGS: Breath sounds equal, clear to auscultation bilaterally, no wheezes, no crackles, no accessory muscle use. HEART: Regular rate and rhythm, S1, S2 without murmur, rub or gallop. ABDOMEN: Soft, nontender, nondistended, normoactive bowel sounds, no guarding, no rebound, no hepatosplenomegaly, no masses. EXTREMITIES: 2+ pulses, warm, well-perfused, no edema. NEUROLOGICAL: Cranial nerves II through XII grossly intact. Normal speech, gait not observed. PSYCH: Normal mood, normal affect. SKIN: Warm, dry, normal turgor, no rashes or lesions noted Laboratory Results - last 24 hr 3 03/22/17 03/22/17 03/25/17 06:05 06:05 06:30 WBC 7.6 RBC 3.28 L Hgb 9.3 L Hct 27.2 L MCV 82.9 MCH 28.3 MCHC 34.1 RDW 13.5 Plt Count 252 MPV 7.5 Neutrophils % 73.0 Lymphocytes % 19.4 D Monocytes % 6.5 Eosinophils % 0.9 D Basophils % 0.2 Sodium Potassium Chloride Carbon Dioxide Anion Gap BUN Creatinine Creat Clearance w eGFR Random Glucose Calcium Iron 17 L TIBC 172 L Iron Saturation 10 L Total Bilirubin AST ALT Alkaline Phosphatase Liver GGT 96 H Liver Total Bilirubin 0.2 Liver Fibrosis ALT 13 Liver Haptoglobin 368 H Liver Fibrosis Score 0.06 Liver Fibrosis Stage Necroinflammator Score 0.03 Necroinflam Pat Score Necroinflammator Grade A0-no activity Total Protein Albumin Apolipoprotein A-1 84 L Tumor Marker AFP 2.3 Hepatitis A Ab Total Negative Hep Bs Antigen Negative Hep Bs Antibody Reactive Hep B Core Total Ab Negative HCV Quantitation [id number] HCV RNA PCR log cop breaker/ml 6.115 Liver Fibrosis Comment Liver Fibrosis Limits Liver Fibrosis Interp 3 03/25/17 06:30 WBC RBC Hgb Hct MCV MCH MCHC RDW Plt Count MPV Neutrophils % Lymphocytes % Monocytes % Eosinophils % Basophils % Sodium 142 Potassium 3.4 L Chloride 103 Carbon Dioxide 30 Anion Gap 9 BUN 11 Creatinine 0.7 Creat Clearance w eGFR > 60 Random Glucose 78 D Calcium 7.6 L Iron TIBC Iron Saturation Total Bilirubin 0.5 D AST 30 D ALT 30 Alkaline Phosphatase 66 Liver GGT Liver Total Bilirubin Liver Fibrosis ALT Liver Haptoglobin Liver Fibrosis Score Liver Fibrosis Stage Necroinflammator Score Necroinflam Pat Score Necroinflammator Grade Total Protein 5.1 L Albumin 2.0 L Apolipoprotein A-1 Tumor Marker AFP Hepatitis A Ab Total Hep Bs Antigen Hep Bs Antibody Hep B Core Total Ab HCV Quantitation HCV RNA PCR log cop breaker/ml Liver Fibrosis Comment Liver Fibrosis Limits Liver Fibrosis Interp Active Medications 3 Generic Name Dose Route Start Last Admin Trade Name Freq PRN Reason Stop Dose Admin Acetaminophen 650 mg 03/23/17 17:58 03/24/17 09:13 Tylenol - PO 650 mg Q6H PRN Administration PAIN Acetaminophen 650 mg 03/25/17 13:24 Tylenol - PO Q6H PRN FEVER OR PAIN Albuterol/Ipratropium 1 amp 03/23/17 17:26 03/24/17 23:17 Duoneb - NEB 1 amp Q6H PRN Administration SHORTNESS OF BREATH Bisacodyl 10 mg 03/23/17 17:26 Dulcolax Suppository - RC PRN PRN CONSTIPATION Buspirone HCl 10 mg 03/23/17 22:00 03/25/17 13:46 Buspar - PO 10 mg TID [facility] Administration Clonazepam 0.5 mg 03/23/17 22:00 03/25/17 13:47 Klonopin - PO 0.5 mg TID [facility] Administration Clonidine 0.2 mg 03/23/17 22:00 03/25/17 09:21 Catapres - PO 0.2 mg BID [facility] Administration Enoxaparin Sodium 40 mg 03/24/17 12:00 03/25/17 09:34 Lovenox - SQ 40 mg DAILY [facility] Administration Lactated Ringer's 1,000 mls @ 125 mls/hr 03/23/17 17:26 03/24/17 22:24 Lactated Ringers Solution IV 125 mls/hr ASDIR [facility] Administration Piperacillin Sod/Tazobactam 100 mls @ 200 mls/hr 03/23/17 18:00 03/25/17 09:32 Sod 4.5 gm/ Dextrose IVPB 200 mls/hr Q8H-IV [facility] Administration Protocol Pantoprazole Sodium 40 mg/ 100 mls @ 200 mls/hr 03/24/17 10:00 03/25/17 09:22 Sodium Chloride IVPB 200 mls/hr DAILY [facility] Administration Ibuprofen 600 mg 03/25/17 13:23 Motrin - PO Q6H PRN PAIN Lactobacillus Acidophilus 1 tab 03/24/17 10:00 03/25/17 09:21 Bacid - PO 1 tab DAILY [facility] Administration Methadone HCl 80 mg/ Methadone 85 mg 03/24/17 06:00 03/25/17 05:28 HCl 5 mg PO 85 mg DAILY@0600 [facility] Administration Ondansetron HCl 4 mg 03/23/17 17:15 Zofran Injection IVPB Q4H PRN NAUSEA AND/OR VOMITING Oxycodone HCl 10 mg 03/23/17 17:58 03/24/17 09:11 Roxicodone - PO 10 mg Q6H PRN Administration PAIN LEVEL 6-10 Polyethylene Glycol 17 gm 03/25/17 14:00 03/25/17 13:47 Miralax (For Daily Use) - PO Not Given TID [facility] Quetiapine Fumarate 200 mg/ 225 mg 03/23/17 22:00 03/24/17 22:22 Quetiapine Fumarate 25 mg PO 225 mg HS [facility] Administration ASSESSMENT/PLAN: A: 46yo man with PMH PSA, HTN, HCV, PTSD who presented with abdominal pain and was diagnosed with cholecystitis who is s/p lap cholecystectomy 03/23. P: 1. Acute cholecystitis with cholelithiasis - S/p cholecytectomy on 03/23/17 - Continue Zosyn - PO pain management - d/c dilaudid - Advance diet per surgery - Appreciate surgery consult - Appreciate ID consult 2. HCV - refusing intervention here - states his Methadone clinic will f/u 3. Opioid dependence, on Methadone - Continue 85mg po daily 4. PTSD, agorophobia - Continue Seroquel - Continue Clonidine - Continue Buspar 5. Constipation - Resolved 6. F/E/N - regular diet - IV fluids - replete prn 7. PPX - Lovenox per surgery - SCDs bilaterally Dispo- Requires continued inpatient care CODE STATUS: FULL CODE Visit type - Emergency Visit Emergency Visit: Yes ED Registration Date: 03/19/17 Care time: The patient presented to the Emergency Department on the above date and was hospitalized for further evaluation of their emergent condition. - New Patient This patient is new to me today: Yes Date on this admission: 03/29/17 - Critical Care Critical Care patient: No
[2017-03-25 16:29] LABS: HCV RNA GENOTYPE 1a (.)
[2017-03-25] MEDS: oxyCODONE HCL 5 MG TABLET PO PRN ×2 (17:33→22:04)
[2017-03-25] MEDS: ACETAMINOPHEN 325 MG TABLET (FP) PO PRN ×2 (17:34→22:04)
[2017-03-25] MEDS: LACTATED RINGERS SOLUTION 1,000 ML IV SCH (18:04)
[2017-03-25] MEDS: QUETIAPINE FUMARATE PO SCH (22:03)
[2017-03-26] MEDS ORDERED: PIPERACILLIN/TAZOBACTAM 4.5 GM VIAL IVPB ONE ×3 (00:51→17:04)
[2017-03-26] MEDS ORDERED: DEXTROSE 5%-WATER 100 ML IVPB ONE ×3 (00:51→17:05)
[2017-03-26] MEDS: PIPERACILLIN/TAZOB 4.5 GM 4.5 GM in DEXTROSE 5%-WATER 100 ML IVPB SCH ×3 (01:59→17:21)
[2017-03-26] MEDS ORDERED: METHADONE HCL 5 MG TABLET ONE (05:48)
[2017-03-26] MEDS ORDERED: METHADONE HCL 40 MG DISPERSABLE TABLET ONE (05:48)
[2017-03-26] MEDS: clonazePAM 0.5 MG TABLET PO SCH ×3 (06:16→22:20)
[2017-03-26] MEDS: METHADONE 80 MG, METHADONE 5 MG PO SCH (06:16)
[2017-03-26] MEDS: busPIRone HCL 5 MG TABLET PO SCH ×3 (06:16→22:19)
[2017-03-26] MEDS: POLYETHYLENE GLYCOL 3350 119 GM BTL PO SCH ×3 (06:16→22:20)
[2017-03-26 07:40] LABS: MCH 28.1 pg (25.7-33.7); MEAN CELL VOLUME 82.6 fl (80-96); MEAN PLT VOLUME 7.4 fl (7.5-11.1); PLATELET COUNT 305 K/MM3 (134-434); RDW 13.4 % (11.9-15.9); WHITE BLOOD COUNT 6.5 K/mm3 (4.0-10.0)
[2017-03-26 08:08] LABS: ALBUMIN 2.1 g/dl (3.4-5.0); ANION GAP 10 (8-16); CALCIUM 7.5 mg/dL (8.5-10.1); CO2 30 mmol/L (21-32); CREATININE 0.7 mg/dL (0.7-1.3); GLUCOSE,RANDOM 83 mg/dL (74-106); SGOT/AST 27 U/L (15-37); SGPT/ALT 31 U/L (12-78)
[2017-03-26 08:10] LABS: ALK PHOS 67 U/L (45-117); BILIRUBIN,TOTAL 0.6 mg/dL (0.2-1.0); TOT PROT 5.4 g/dl (6.4-8.2)
[2017-03-26] MEDS ORDERED: POTASSIUM CHLORIDE TABS 20 MEQ TABLET.ER (FP) PO ONE (08:30)
[2017-03-26] MEDS: oxyCODONE HCL 5 MG TABLET PO PRN ×2 (08:38→17:20)
[2017-03-26] MEDS: ACETAMINOPHEN 325 MG TABLET (FP) PO PRN ×3 (08:39→23:18)
[2017-03-26] MEDS ORDERED: PT OWN MED DRAWER 7, Y5N ONE ×2 (09:48→22:07)
[2017-03-26] MEDS ORDERED: PANTOPRAZOLE SODIUM 40 MG VIAL ONE (09:48)
[2017-03-26] MEDS ORDERED: SODIUM CHLORIDE 100 ML IVPB ONE (09:49)
[2017-03-26] MEDS: LACTOBACILLUS ACIDOPHILUS 1 EACH TAB (FP) PO SCH (09:53)
[2017-03-26] MEDS: cloNIDine HCL 0.1 MG TABLET PO SCH ×2 (09:53→22:20)
[2017-03-26] MEDS: PANTOPRAZOLE SODIUM 40 MG in SODIUM CHLORIDE 100 ML IVPB SCH (09:54)
[2017-03-26] MEDS: ENOXAPARIN NA (PORCINE) 40 MG/0.4 ML DISP.SYRIN SQ SCH (09:58)
[2017-03-26 11:10] LABS: PLATELET ESTIMATE ADEQUATE (NORMAL)
--- NOTE | 2017-03-26 11:51 | PN ---
Progress Note (short form) - Note Progress Note: Pt seen and examined in bed. Pain was up this morning - had Percocet; pain is now 4/10. He is tolerating regular diet without nausea/vomiting. STAN drainage has been low - 35ml yesterday, 25ml so far today, but is now bilious. Pt has been up ambulating. Vital Signs Period Temp Pulse Resp BP Sys/Nova Pulse Ox Last 24 Hr 97.9 F-98.1 F 59-81 16-20 116-138/83-91 96-96 PE: abdomen soft, obese, incisionally tender mainly at subxiphoid and supraumbilical sites, no RUQ tenderness STAN drain site dressing saturated yellow - changed bulb with bilious drainage akosua C/D/I CBC,CMP WBC 6.5 K/mm3 (4.0-10.0) 03/26/17 06:50 RBC 3.59 M/mm3 (4.00-5.60) L 03/26/17 06:50 Hgb 10.1 GM/dL (11.7-16.9) L 03/26/17 06:50 Hct 29.6 % (35.4-49) L 03/26/17 06:50 MCV 82.6 fl (80-96) 03/26/17 06:50 MCH 28.1 pg (25.7-33.7) 03/26/17 06:50 MCHC 34.0 g/dl (32.0-35.9) 03/26/17 06:50 RDW 13.4 % (11.9-15.9) 03/26/17 06:50 Plt Count 305 K/MM3 (134-434) D 03/26/17 06:50 MPV 7.4 fl (7.5-11.1) L 03/26/17 06:50 Neutrophils % 74.0 % (42.8-82.8) 03/26/17 06:50 Lymphocytes % 18.0 % (8-40) 03/26/17 06:50 Monocytes % 7.0 % (3.8-10.2) 03/26/17 06:50 Eosinophils % 1.0 % (0-4.5) 03/26/17 06:50 Basophils % 0.2 % (0-2.0) 03/25/17 06:30 Differential Comment Manual diff done 03/26/17 06:50 Platelet Estimate Adequate (NORMAL) 03/26/17 06:50 Sodium 141 mmol/L (136-145) 03/26/17 06:50 Potassium 3.3 mmol/L (3.5-5.1) L 03/26/17 06:50 Chloride 101 mmol/L (98-107) 03/26/17 06:50 Carbon Dioxide 30 mmol/L (21-32) 03/26/17 06:50 Anion Gap 10 (8-16) 03/26/17 06:50 BUN 7 mg/dL (7-18) D 03/26/17 06:50 Creatinine 0.7 mg/dL (0.7-1.3) 03/26/17 06:50 Creat Clearance w eGFR > 60 (>60) 03/26/17 06:50 Random Glucose 83 mg/dL (74-106) 03/26/17 06:50 Calcium 7.5 mg/dL (8.5-10.1) L 03/26/17 06:50 Total Bilirubin 0.6 mg/dL (0.2-1.0) 03/26/17 06:50 Direct Bilirubin 0.2 mg/dL (0.0-0.2) 03/22/17 06:05 AST 27 U/L (15-37) 03/26/17 06:50 ALT 31 U/L (12-78) 03/26/17 06:50 Alkaline Phosphatase 67 U/L (45-117) 03/26/17 06:50 Total Protein 5.4 g/dl (6.4-8.2) L 03/26/17 06:50 Albumin 2.1 g/dl (3.4-5.0) L 03/26/17 06:50 A/P: POD3 s/p lap marga with gangrenous gallbladder regular diet continue antibiotics until discharge po pain meds only - pain must be controlled on Tylenol/ibuprofen for d/c home continue STAN drain - will talk to GI about ERCP hep C - pt has plan to see doctor through his clinic after d/c can f/u with GI to address CBD dilation in future postop instructions are in d/c plan - pt to f/u in clinic for staple removal Problem List - Problems (1) Calculus of gallbladder with acute cholecystitis without obstruction Code(s): K80.00 - CALCULUS OF GALLBLADDER W ACUTE CHOLECYST W/O OBSTRUCTION (2) Common bile duct dilation Code(s): K83.8 - OTHER SPECIFIED DISEASES OF BILIARY TRACT (3) Bipolar disorder Code(s): F31.9 - BIPOLAR DISORDER, UNSPECIFIED Qualifiers: Active/Remission status: remission status unspecified Qualified Code (s): F31.9 - Bipolar disorder, unspecified (4) Constipation Code(s): K59.00 - CONSTIPATION, UNSPECIFIED Qualifiers: Constipation type: drug induced constipation Qualified Code(s): K59.03 - Drug induced constipation (5) Hypertension Code(s): I10 - ESSENTIAL (PRIMARY) HYPERTENSION Qualifiers: Hypertension type: essential hypertension Qualified Code(s): I10 - Essential (primary) hypertension (6) Methadone maintenance therapy patient Code(s): F11.20 - OPIOID DEPENDENCE, UNCOMPLICATED (7) Polysubstance abuse Code(s): F19.10 - OTHER PSYCHOACTIVE SUBSTANCE ABUSE, UNCOMPLICATED
--- NOTE | 2017-03-26 12:18 | PN ---
Physical Exam: SUBJECTIVE: Patient seen and examined at the bedside. He denies acute abdominal pain during exam. OBJECTIVE: abdominal surgical sites stables, c.d.i. mild discomfort +bili drainage on STAN drain, pt for HIDA scan today, ERCP tomorrow NPO after midnight Vital Signs Period Temp Pulse Resp BP Sys/Nova Pulse Ox Last 24 Hr 97.9 F-98.1 F 59-81 16-20 116-138/83-91 96-96 GENERAL: The patient is awake, alert, and fully oriented, in no acute distress. HEAD: Normal with no signs of trauma. EYES: PERRL, extraocular movements intact, sclera anicteric, conjunctiva clear. No ptosis. ENT: Ears normal, nares patent, oropharynx clear without exudates, moist mucous membranes. NECK: Trachea midline, full range of motion, supple. LUNGS: Breath sounds equal, clear to auscultation bilaterally, no wheezes, no crackles, no accessory muscle use. HEART: Regular rate and rhythm ABDOMEN: Mildly distended, + bowel sounds, no guarding, no rebound, surgical/ akosua sites c/d/i, no guarding, no +STAN drain now with bili drainage EXTREMITIES: 2+ pulses, warm, well-perfused, no edema. NEUROLOGICAL: Normal speech, gait not observed. PSYCH: Normal mood, normal affect. Laboratory Results - last 24 hr 03/22/17 03/26/17 03/26/17 06:05 06:50 06:50 WBC 6.5 RBC 3.59 L Hgb 10.1 L Hct 29.6 L MCV 82.6 MCH 28.1 MCHC 34.0 RDW 13.4 Plt Count 305 D MPV 7.4 L Neutrophils % 74.0 Lymphocytes % 18.0 Monocytes % 7.0 Eosinophils % 1.0 Differential Comment Manual diff done Platelet Estimate Adequate Sodium 141 Potassium 3.3 L Chloride 101 Carbon Dioxide 30 Anion Gap 10 BUN 7 D Creatinine 0.7 Creat Clearance w eGFR > 60 Random Glucose 83 Calcium 7.5 L Iron 17 L TIBC 172 L Iron Saturation 10 L Total Bilirubin 0.6 AST 27 ALT 31 Alkaline Phosphatase 67 Total Protein 5.4 L Albumin 2.1 L Hepatitis A Ab Total Negative Hep Bs Antigen Negative Hep Bs Antibody Reactive Hep B Core Total Ab Negative HCV Quantitation [id number] HCV RNA PCR log type copyist/ml 6.115 Hepatitis C Genotype 1a Active Medications Generic Name Dose Route Start Last Admin Trade Name Freq PRN Reason Stop Dose Admin Acetaminophen 650 mg 03/26/17 12:04 Tylenol - PO Q6H PRN SEVERE PAIN Albuterol/Ipratropium 1 amp 03/23/17 17:26 03/24/17 23:17 Duoneb - NEB 1 amp Q6H PRN Administration SHORTNESS OF BREATH Bisacodyl 10 mg 03/23/17 17:26 Dulcolax Suppository - RC PRN PRN CONSTIPATION Buspirone HCl 10 mg 03/23/17 22:00 03/26/17 06:16 Buspar - PO 10 mg TID CHELA Administration Clonazepam 0.5 mg 03/23/17 22:00 03/26/17 06:16 Klonopin - PO 0.5 mg TID CHELA Administration Clonidine 0.2 mg 03/23/17 22:00 03/26/17 09:53 Catapres - PO 0.2 mg BID CHELA Administration Enoxaparin Sodium 40 mg 03/24/17 12:00 03/26/17 09:58 Lovenox - SQ 40 mg DAILY CHELA Administration Piperacillin Sod/Tazobactam 100 mls @ 200 mls/hr 03/23/17 18:00 03/26/17 09:56 Sod 4.5 gm/ Dextrose IVPB 200 mls/hr Q8H-IV CHELA Administration Protocol Ibuprofen 600 mg 03/25/17 13:23 Motrin - PO Q6H PRN PAIN Lactobacillus Acidophilus 1 tab 03/24/17 10:00 03/26/17 09:53 Bacid - PO 1 tab DAILY CHELA Administration Methadone HCl 80 mg/ Methadone 85 mg 03/24/17 06:00 03/26/17 06:16 HCl 5 mg PO 85 mg DAILY@0600 CHELA Administration Ondansetron HCl 4 mg 03/23/17 17:15 Zofran Injection IVPB Q4H PRN NAUSEA AND/OR VOMITING Oxycodone HCl 10 mg 03/26/17 12:04 Roxicodone - PO Q6H PRN SEVERE PAIN Polyethylene Glycol 17 gm 03/25/17 14:00 03/26/17 06:16 Miralax (For Daily Use) - PO Not Given TID CHELA Quetiapine Fumarate 200 mg/ 225 mg 03/23/17 22:00 07/12/17 22:03 Quetiapine Fumarate 25 mg PO 225 mg HS CHELA Administration ASSESSMENT/PLAN: Patient is a 46 year old male with a significant past medical history of hypertension, current everyday smoker, hepatitis C and PTSD. He presented to the ER on 03/19/2017 with abdominal pain and was diagnosed with cholecystitis. He is s/p lap cholecystectomy on 03/23/2017 for gangrenous gallbladder with dense rind and overlying adhesions. GI: Cholecystitis - acute Assessment/Plan: s/p cholecytectomy on 03/23/17 for gangrenous gallbladder On IV antibiotics of Zosyn (started 03/23) On Motrin and Tylenol for pain control, Oxycodone for any severe breakthrough pain and should be used as last resort STAN drain now with bili drainange, pt for HIDA scan today and ERCP in a.m. ID following, blood cultures with no growth to date Hepatitis C Assessment/Plan: Patient refusing intervention for hep C during hospitalization Psyche: Opiod dependence Assessment/Plan: On methadone 85mg daily Tobacco dependence Assessment/Plan: On nicotine patch F.E.N. Fluids: Tolerating PO, NPO at midnight, IVF @ midnight @ 50cc/hr Electrolytes: monitor with BMP Nutrition: Clears today then NPO Prophylaxis: GI: Acidophillis DVT: Lovenox daily Disposition: Requires inpatient hospitalization. Full Code. Visit type - Emergency Visit Emergency Visit: Yes ED Registration Date: 03/19/17 Care time: The patient presented to the Emergency Department on the above date and was hospitalized for further evaluation of their emergent condition. - New Patient This patient is new to me today: Yes Date on this admission: 03/26/17 - Critical Care Critical Care patient: No - Discharge Referral Referred to [facility] Med P.C.: No
--- NOTE | 2017-03-26 12:22 | PN ---
GI Progress Note Subjective: It was noted by Dr. Smith that drainage from STAN drain became bilious as opposed to serosanguinous Mr. Cope describes some pain at the trochar sites, otherwise feels well - Objective Vital Signs: Vital Signs Temperature 98.1 F 03/25/17 18:04 Pulse Rate 59 L 03/25/17 18:04 Respiratory Rate 20 03/25/17 21:00 Blood Pressure 138/83 03/25/17 18:04 O2 Sat by Pulse Oximetry (%) 96 03/25/17 22:00 Constitutional: Calm Eyes: No: Sclera Icterus Cardiovascular: Yes: Regular Rate and Rhythm Respiratory: Yes: CTA Bilaterally Gastrointestinal Inspection: Yes: Scars (+ trochar sites with tenderness at sites). No: Distention ...Auscultate: Yes: Normoactive Bowel Sounds ...Palpate: Yes: Tenderness (as above) Edema: No Neurological: Yes: Alert, Oriented Labs: CBC, BMP 03/26/17 06:50 03/26/17 06:50 INR, PTT INR 1.07 (0.82-1.09) 03/19/17 17:05 Hepatic Panel Total Bilirubin 0.6 mg/dL (0.2-1.0) 03/26/17 06:50 Direct Bilirubin 0.2 mg/dL (0.0-0.2) 03/22/17 06:05 AST 27 U/L (15-37) 03/26/17 06:50 ALT 31 U/L (12-78) 03/26/17 06:50 Alkaline Phosphatase 67 U/L (45-117) 03/26/17 06:50 Albumin 2.1 g/dl (3.4-5.0) L 03/26/17 06:50 Problem List - Problems (1) Calculus of gallbladder with acute cholecystitis without obstruction Assessment/Plan: S/P lap marga now with concern for possible bile leak HIDA ordered We discussed the possibility of ERCP with Mr. Cope as well for diagnostic/ therapeutic purposes. We discussed potential risks of the procedure like but not limited to bleeding, perforation requiring surgery to repair, infection, sedatioon medication effects, pancreatitis, all of which could be potentially life threatening. He has agreed to the procedure. Monitor LFTs NPO after midnight OK for clears after HIDA Code(s): K80.00 - CALCULUS OF GALLBLADDER W ACUTE CHOLECYST W/O OBSTRUCTION
[2017-03-26] MEDS: NICOTINE 21 MG/24 HOURS TOPICAL PATCH TD SCH (13:00)
[2017-03-26] MEDS: QUETIAPINE FUMARATE PO SCH (22:20)
[2017-03-27] MEDS ORDERED: D5-1/2NS+20 MEQ KCL - 1,000 ML IV SCH (00:01)
[2017-03-27] MEDS ORDERED: DEXTROSE 5%-0.45% SALINE 1,000 ML IV SCH (00:01)
[2017-03-27] MEDS ORDERED: PIPERACILLIN/TAZOBACTAM 4.5 GM VIAL IVPB ONE ×3 (01:15→17:21)
[2017-03-27] MEDS ORDERED: DEXTROSE 5%-WATER 100 ML IVPB ONE ×3 (01:16→17:21)
[2017-03-27] MEDS: PIPERACILLIN/TAZOB 4.5 GM 4.5 GM in DEXTROSE 5%-WATER 100 ML IVPB SCH ×3 (02:03→18:07)
[2017-03-27] MEDS ORDERED: METHADONE HCL 5 MG TABLET ONE (06:12)
[2017-03-27] MEDS ORDERED: METHADONE HCL 40 MG DISPERSABLE TABLET ONE (06:12)
[2017-03-27] MEDS: METHADONE 80 MG, METHADONE 5 MG PO SCH (06:24)
[2017-03-27] MEDS: clonazePAM 0.5 MG TABLET PO SCH ×3 (06:27→21:24)
[2017-03-27] MEDS: busPIRone HCL 5 MG TABLET PO SCH ×3 (06:27→21:24)
[2017-03-27] MEDS: POLYETHYLENE GLYCOL 3350 119 GM BTL PO SCH ×3 (06:28→21:34)
[2017-03-27 07:33] LABS: MCH 28.2 pg (25.7-33.7); MCHC 34.3 g/dl (32.0-35.9); MEAN CELL VOLUME 82.4 fl (80-96); MEAN PLT VOLUME 7.3 fl (7.5-11.1); PLATELET COUNT 351 K/MM3 (134-434); RDW 13.2 % (11.9-15.9); WHITE BLOOD COUNT 6.1 K/mm3 (4.0-10.0)
[2017-03-27 07:47] LABS: INR 1.12 (0.82-1.09); PROTHROMBIN TIME (PATIENT) 12.3 SEC (9.98-11.88)
[2017-03-27] MEDS ORDERED: INDOMETHACIN 50 MG RECTAL SUPPOSITORY PR ONE (08:33)
[2017-03-27] MEDS ORDERED: LACTATED RINGERS SOLUTION 1,000 ML with POTASSIUM CHLORIDE 20 MEQ IVPB SCH (08:45)
[2017-03-27 09:12] LABS: ALBUMIN 2.3 g/dl (3.4-5.0); ALK PHOS 65 U/L (45-117); ANION GAP 8 (8-16); BILIRUBIN,TOTAL 0.3 mg/dL (0.2-1.0); CALCIUM 7.9 mg/dL (8.5-10.1); CO2 33 mmol/L (21-32); CREATININE 0.8 mg/dL (0.7-1.3); GLUCOSE,RANDOM 101 mg/dL (74-106); SGOT/AST 25 U/L (15-37); SGPT/ALT 31 U/L (12-78); TOT PROT 5.6 g/dl (6.4-8.2)
--- NOTE | 2017-03-27 09:29 | PN ---
Progress Note (short form) - Note Progress Note: Pt seen and examined in bed. Has not had pain med yet this am. STAN drainage bilious, 90ml yesterday. Pt c/o increased anxiety but cannot identify anything specific he is anxious about. He is getting his usual meds. Had clears last night after HIDA; NPO this am for likely ERCP with GI. Vital Signs Period Temp Pulse Resp BP Sys/Nova Pulse Ox Last 24 Hr 98.6 F-99.1 F 67-69 16-18 149-175/81-86 96 PE: abdomen soft, obese, incisionally tender mainly at subxiphoid and supraumbilical sites, no RUQ tenderness STAN drain site dressing just changed - clean and dry bulb with bilious drainage, ~25ml akosua C/D/I CBC,CMP WBC 6.1 K/mm3 (4.0-10.0) 03/27/17 06:30 RBC 3.66 M/mm3 (4.00-5.60) L 03/27/17 06:30 Hgb 10.3 GM/dL (11.7-16.9) L 03/27/17 06:30 Hct 30.2 % (35.4-49) L 03/27/17 06:30 MCV 82.4 fl (80-96) 03/27/17 06:30 MCH 28.2 pg (25.7-33.7) 03/27/17 06:30 MCHC 34.3 g/dl (32.0-35.9) 03/27/17 06:30 RDW 13.2 % (11.9-15.9) 03/27/17 06:30 Plt Count 351 K/MM3 (134-434) 03/27/17 06:30 MPV 7.3 fl (7.5-11.1) L 03/27/17 06:30 Neutrophils % Y 03/27/17 06:30 Lymphocytes % Y 03/27/17 06:30 Monocytes % 7.0 % (3.8-10.2) 03/26/17 06:50 Eosinophils % 1.0 % (0-4.5) 03/26/17 06:50 Basophils % 0.2 % (0-2.0) 03/25/17 06:30 Differential Comment Manual diff done 03/26/17 06:50 Platelet Estimate Adequate (NORMAL) 03/26/17 06:50 Retic Count 1.17 % (0.5-1.5) 03/22/17 06:05 Sodium 140 mmol/L (136-145) 03/27/17 06:30 Potassium 3.6 mmol/L (3.5-5.1) 03/27/17 06:30 Chloride 99 mmol/L (98-107) 03/27/17 06:30 Carbon Dioxide 33 mmol/L (21-32) H 03/27/17 06:30 Anion Gap 8 (8-16) 03/27/17 06:30 BUN 4 mg/dL (7-18) L D 03/27/17 06:30 Creatinine 0.8 mg/dL (0.7-1.3) 03/27/17 06:30 Creat Clearance w eGFR > 60 (>60) 03/27/17 06:30 Random Glucose 101 mg/dL (74-106) D 03/27/17 06:30 Calcium 7.9 mg/dL (8.5-10.1) L 03/27/17 06:30 Phosphorus 2.7 mg/dL (2.5-4.9) 03/23/17 06:10 Magnesium 2.3 mg/dL (1.8-2.4) 03/23/17 06:10 Iron 17 ug/dL (38-169) L 03/22/17 06:05 TIBC 172 ug/dL (250-450) L 03/22/17 06:05 Iron Saturation 10 % (15-55) L 03/22/17 06:05 Ferritin 470.081 ng/ml (16.4-293.9) H 03/22/17 06:05 Total Bilirubin 0.3 mg/dL (0.2-1.0) D 03/27/17 06:30 Direct Bilirubin 0.2 mg/dL (0.0-0.2) 03/22/17 06:05 AST 25 U/L (15-37) 03/27/17 06:30 ALT 31 U/L (12-78) 03/27/17 06:30 Alkaline Phosphatase 65 U/L (45-117) 03/27/17 06:30 Liver GGT 96 IU/L (0-65) H 03/22/17 06:05 Liver Total Bilirubin 0.2 mg/dL (0.0-1.2) 03/22/17 06:05 Liver Fibrosis ALT 13 IU/L (0-55) 03/22/17 06:05 Liver Haptoglobin 368 mg/dL (34-200) H 03/22/17 06:05 Liver Fibrosis Score 0.06 (0.00-0.21) 03/22/17 06:05 Liver Fibrosis Stage (.) 03/22/17 06:05 Necroinflammator Score 0.03 (0.00-0.17) 03/22/17 06:05 Necroinflam Pat Score (.) 03/22/17 06:05 Necroinflammator Grade A0-no activity (.) 03/22/17 06:05 C-Reactive Protein 23.9 MG/DL (0.00-0.3) H 03/22/17 06:05 Total Protein 5.6 g/dl (6.4-8.2) L 03/27/17 06:30 Albumin 2.3 g/dl (3.4-5.0) L 03/27/17 06:30 Apolipoprotein A-1 84 mg/dL (101-178) L 03/22/17 06:05 Total Amylase 26 U/L (25-115) 03/23/17 06:10 Lipase 137 U/L (73-393) 03/24/17 06:00 Tumor Marker AFP 2.3 ng/ml (0.0-8.3) 03/22/17 06:05 A/P: POD4 s/p lap marga with gangrenous gallbladder regular diet held for procedures continue antibiotics until discharge po pain meds only - pain must be controlled on Tylenol/ibuprofen for d/c home continue STAN drain - HIDA yesterday appears to show no gross leak, report pending GI planning possible ERCP today recommend to have Dr. Garner follow up again with patient regarding increased anxiety and any med adjustments hep C - pt has plan to see doctor through his clinic after d/c postop instructions are in d/c plan - pt to f/u in clinic for staple removal 2 wks after surgery Problem List - Problems (1) Calculus of gallbladder with acute cholecystitis without obstruction Code(s): K80.00 - CALCULUS OF GALLBLADDER W ACUTE CHOLECYST W/O OBSTRUCTION (2) Common bile duct dilation Code(s): K83.8 - OTHER SPECIFIED DISEASES OF BILIARY TRACT (3) Bipolar disorder Code(s): F31.9 - BIPOLAR DISORDER, UNSPECIFIED Qualifiers: Active/Remission status: remission status unspecified Qualified Code (s): F31.9 - Bipolar disorder, unspecified (4) Constipation Code(s): K59.00 - CONSTIPATION, UNSPECIFIED Qualifiers: Constipation type: drug induced constipation Qualified Code(s): K59.03 - Drug induced constipation (5) Hypertension Code(s): I10 - ESSENTIAL (PRIMARY) HYPERTENSION Qualifiers: Hypertension type: essential hypertension Qualified Code(s): I10 - Essential (primary) hypertension (6) Methadone maintenance therapy patient Code(s): F11.20 - OPIOID DEPENDENCE, UNCOMPLICATED (7) Polysubstance abuse Code(s): F19.10 - OTHER PSYCHOACTIVE SUBSTANCE ABUSE, UNCOMPLICATED
[2017-03-27] MEDS ORDERED: PT OWN MED DRAWER 7, Y5N ONE (09:42)
[2017-03-27] MEDS: NICOTINE 21 MG/24 HOURS TOPICAL PATCH TD SCH (09:47)
[2017-03-27] MEDS: cloNIDine HCL 0.1 MG TABLET PO SCH ×2 (09:47→21:24)
[2017-03-27] MEDS: LACTOBACILLUS ACIDOPHILUS 1 EACH TAB (FP) PO SCH (09:47)
[2017-03-27] MEDS: ACETAMINOPHEN 325 MG TABLET (FP) PO PRN ×2 (09:48→21:33)
[2017-03-27 11:22] LABS: PLATELET ESTIMATE ADEQUATE (NORMAL)
[2017-03-27] MEDS ORDERED: NEOSTIGMINE METHYLSULFATE 0.5 MG/ML - 10 ML MDV ONE (14:33)
[2017-03-27] MEDS ORDERED: GLYCOPYRROLATE 0.2 MG/1 ML VIAL ONE ×5 (14:33)
[2017-03-27] MEDS ORDERED: ROCURONIUM BROMIDE 50 MG/5 ML VIAL ONE (14:33)
[2017-03-27] MEDS ORDERED: MIDAZOLAM HCL 2 MG/2 ML SINGLE DOSE VIAL ONE (14:34)
[2017-03-27] MEDS ORDERED: ESMOLOL HCL 10 ML ONE (14:34)
[2017-03-27] MEDS ORDERED: PHENYLEPHRINE HCL 10 MG/1 ML SINGLE DOSE VIAL ONE (14:45)
[2017-03-27 15:05] LABS: HCV FIBRO RESUL SEE FILE COPY
--- NOTE | 2017-03-27 15:19 | PN ---
Physical Exam: SUBJECTIVE: Patient seen getting on the stretcher on his way down for an ERCP. States he is very anxious about the ERCP. OBJECTIVE: 100cc of drainage from STAN drain HIDA scan pending read for ERCP today Vital Signs Period Temp Pulse Resp BP Sys/Nova Pulse Ox Last 24 Hr 98.6 F-99.1 F 56-69 18-18 149-175/81-90 92-97 GENERAL: The patient is awake, alert, and fully oriented, anxious HEAD: Normal with no signs of trauma. EYES: PERRL, extraocular movements intact, sclera anicteric, conjunctiva clear. No ptosis. ENT: Ears normal, nares patent, oropharynx clear without exudates, moist mucous membranes. ABDOMEN: Mildly distended, + bowel sounds, no guarding, no rebound, surgical/ akosua sites c/d/i, no guarding, no +STAN drain now with bili drainage EXTREMITIES: 2+ pulses, warm, well-perfused, no edema. NEUROLOGICAL: Normal speech, steady gait PSYCH: anxious Laboratory Results - last 24 hr 03/22/17 03/27/17 03/27/17 06:05 06:30 06:30 WBC 6.1 RBC 3.66 L Hgb 10.3 L Hct 30.2 L MCV 82.4 MCH 28.2 MCHC 34.3 RDW 13.2 Plt Count 351 MPV 7.3 L Neutrophils % 67.0 Lymphocytes % 25.0 D Monocytes % 5.0 Eosinophils % 2.0 D Basophils % 1.0 D Differential Comment Slide scanned Platelet Estimate Adequate INR 1.12 Sodium Potassium Chloride Carbon Dioxide Anion Gap BUN Creatinine Creat Clearance w eGFR Random Glucose Calcium Total Bilirubin AST ALT Alkaline Phosphatase Liver GGT 96 H Liver Total Bilirubin 0.2 Liver Fibrosis ALT 13 Liver Haptoglobin 368 H Liver Fibrosis Score 0.06 Liver Fibrosis Stage Necroinflammator Score 0.03 Necroinflam Pat Score Necroinflammator Grade A0-no activity Total Protein Albumin Apolipoprotein A-1 84 L Tumor Marker AFP 2.3 Liver Fibrosis Comment Liver Fibrosis Limits Liver Fibrosis Interp 03/27/17 06:30 WBC RBC Hgb Hct MCV MCH MCHC RDW Plt Count MPV Neutrophils % Lymphocytes % Monocytes % Eosinophils % Basophils % Differential Comment Platelet Estimate INR Sodium 140 Potassium 3.6 Chloride 99 Carbon Dioxide 33 H Anion Gap 8 BUN 4 L D Creatinine 0.8 Creat Clearance w eGFR > 60 Random Glucose 101 D Calcium 7.9 L Total Bilirubin 0.3 D AST 25 ALT 31 Alkaline Phosphatase 65 Liver GGT Liver Total Bilirubin Liver Fibrosis ALT Liver Haptoglobin Liver Fibrosis Score Liver Fibrosis Stage Necroinflammator Score Necroinflam Pat Score Necroinflammator Grade Total Protein 5.6 L Albumin 2.3 L Apolipoprotein A-1 Tumor Marker AFP Liver Fibrosis Comment Liver Fibrosis Limits Liver Fibrosis Interp Active Medications Generic Name Dose Route Start Last Admin Trade Name Freq PRN Reason Stop Dose Admin Acetaminophen 650 mg 03/26/17 12:04 03/27/17 09:48 Tylenol - PO 650 mg Q6H PRN Administration SEVERE PAIN Albuterol/Ipratropium 1 amp 03/23/17 17:26 03/24/17 23:17 Duoneb - NEB 1 amp Q6H PRN Administration SHORTNESS OF BREATH Bisacodyl 10 mg 03/23/17 17:26 Dulcolax Suppository - RC PRN PRN CONSTIPATION Buspirone HCl 10 mg 03/23/17 22:00 03/27/17 14:08 Buspar - PO Not Given TID CHELA Clonazepam 0.5 mg 03/23/17 22:00 03/27/17 14:08 Klonopin - PO Not Given TID CHELA Clonidine 0.2 mg 03/23/17 22:00 03/27/17 09:47 Catapres - PO 0.2 mg BID CHELA Administration Enoxaparin Sodium 40 mg 03/24/17 12:00 03/26/17 09:58 Lovenox - SQ 40 mg DAILY CHELA Administration Piperacillin Sod/Tazobactam 100 mls @ 200 mls/hr 03/23/17 18:00 03/27/17 09:47 Sod 4.5 gm/ Dextrose IVPB 200 mls/hr Q8H-IV CHELA Administration Protocol Potassium Chloride 20 meq/ 1,010 mls @ 125 mls/hr 03/27/17 08:45 03/27/17 11:30 Lactated Ringer's IVPB 125 mls/hr ASDIR CHELA Administration Lactobacillus Acidophilus 1 tab 03/24/17 10:00 03/27/17 09:47 Bacid - PO Not Given DAILY CHELA Methadone HCl 80 mg/ Methadone 85 mg 03/24/17 06:00 03/27/17 06:24 HCl 5 mg PO 85 mg DAILY@0600 CHELA Administration Nicotine 21 mg 03/26/17 12:30 03/27/17 09:47 Nicoderm Patch - TD 21 mg DAILY CHELA Administration Ondansetron HCl 4 mg 03/23/17 17:15 Zofran Injection IVPB Q4H PRN NAUSEA AND/OR VOMITING Oxycodone HCl 10 mg 03/26/17 12:04 03/26/17 17:20 Roxicodone - PO 10 mg Q6H PRN Administration SEVERE PAIN Polyethylene Glycol 17 gm 03/25/17 14:00 03/27/17 14:08 Miralax (For Daily Use) - PO Not Given TID CHELA Quetiapine Fumarate 200 mg/ 225 mg 03/23/17 22:00 03/26/17 22:20 Quetiapine Fumarate 25 mg PO 225 mg HS CHELA Administration ASSESSMENT/PLAN: Patient is a 46 year old male with a significant past medical history of hypertension, current everyday smoker, hepatitis C and PTSD. He presented to the ER on 03/19/2017 with abdominal pain and was diagnosed with cholecystitis. He is s/p lap cholecystectomy on 03/23/2017 for gangrenous gallbladder with dense rind and overlying adhesions. GI: Cholecystitis - acute Assessment/Plan: s/p cholecytectomy on 03/23/17 for gangrenous gallbladder On IV antibiotics of Zosyn (started 03/23) On Motrin and Tylenol for pain control, Oxycodone for any severe breakthrough pain and should be used as last resort STAN drain bili drainange, HIDA scan pending, ERCP today ID following, blood cultures with no growth to date Hepatitis C Assessment/Plan: Patient refusing intervention for hep C during hospitalization Cardiology: Hypertension - chronic and currently elevated Assessment/Plan: elevated BP noted after ERCP, given beta ghanshyam Will monitor BP, pt is currently on Clonidine 0.2mg BID, will increase to Clonidine 0.3mg BID and monitor Monitor BP for improvement Psyche: Opiod dependence Assessment/Plan: On methadone 85mg daily Tobacco dependence Assessment/Plan: On nicotine patch F.E.N. Fluids: Potassium 20meq with LR @ 100cc/hr Electrolytes: monitor with BMP Nutrition: as per GI Prophylaxis: GI: Acidophillis DVT: Lovenox daily Disposition: Requires inpatient hospitalization. Full Code. Visit type - Emergency Visit Emergency Visit: Yes ED Registration Date: 03/19/17 Care time: The patient presented to the Emergency Department on the above date and was hospitalized for further evaluation of their emergent condition. - New Patient This patient is new to me today: No - Critical Care Critical Care patient: No - Discharge Referral Referred to [facility] No
--- NOTE | 2017-03-27 15:47 | PN ---
Progress Note (short form) - Note Progress Note: GI procedure note Please follow Dr Plaza scanned report. ERCP report: Bile leak identified from cystic duct remnant. 8 Fr X 10 CM DOUBLE PIG TAIL STENT WAS PLACED ACROSS THE AREA OF LEAK. PLAN GET AMYLASE AND LIPASE IN MORNING. GET LFT IN MORNING. MONITOR DRAIN OUTPUT. START CLEAR LIQUID DIET FROM DINNER. ADVANCE DIET PER SURGICAL TEAM. CONTINUE WITH ANTIBIOTICS.
[2017-03-27] MEDS ORDERED: LACTATED RINGERS SOLUTION 1,000 ML IV SCH ×2 (16:00)
[2017-03-27] MEDS ORDERED: LABETALOL HCL 5 MG/1 ML (100MG/20 ML VIAL) IVPUSH ONE (16:31)
[2017-03-27] MEDS: LACTATED RINGERS SOLUTION 1,000 ML IV SCH (20:40)
[2017-03-27] MEDS: QUETIAPINE FUMARATE PO SCH (21:26)
[2017-03-27] MEDS: oxyCODONE HCL 5 MG TABLET PO PRN (21:29)
[2017-03-28] MEDS ORDERED: PIPERACILLIN/TAZOBACTAM 4.5 GM VIAL IVPB ONE ×4 (01:33→23:06)
[2017-03-28] MEDS ORDERED: DEXTROSE 5%-WATER 100 ML IVPB ONE ×4 (01:33→23:06)
[2017-03-28] MEDS: PIPERACILLIN/TAZOB 4.5 GM 4.5 GM in DEXTROSE 5%-WATER 100 ML IVPB SCH ×3 (01:37→17:17)
[2017-03-28] MEDS: LACTATED RINGERS SOLUTION 1,000 ML IV SCH ×3 (05:00→09:53)
[2017-03-28] MEDS ORDERED: METHADONE HCL 40 MG DISPERSABLE TABLET ONE (05:44)
[2017-03-28] MEDS ORDERED: METHADONE HCL 5 MG TABLET ONE (05:44)
[2017-03-28] MEDS: clonazePAM 0.5 MG TABLET PO SCH ×3 (05:53→21:39)
[2017-03-28] MEDS: busPIRone HCL 5 MG TABLET PO SCH ×3 (05:54→21:38)
[2017-03-28] MEDS: METHADONE 80 MG, METHADONE 5 MG PO SCH (05:54)
[2017-03-28] MEDS: POLYETHYLENE GLYCOL 3350 119 GM BTL PO SCH ×3 (06:02→21:41)
[2017-03-28 07:25] LABS: MCH 28.2 pg (25.7-33.7); MCHC 34.3 g/dl (32.0-35.9); MEAN CELL VOLUME 82.2 fl (80-96); MEAN PLT VOLUME 7.1 fl (7.5-11.1); PLATELET COUNT 348 K/MM3 (134-434); RDW 13.2 % (11.9-15.9); WHITE BLOOD COUNT 8.3 K/mm3 (4.0-10.0)
[2017-03-28 07:50] LABS: ALBUMIN 2.2 g/dl (3.4-5.0); ANION GAP 6 (8-16); CALCIUM 7.9 mg/dL (8.5-10.1); CO2 34 mmol/L (21-32); GLUCOSE,RANDOM 101 mg/dL (74-106); MAGNESIUM 1.9 mg/dL (1.8-2.4)
[2017-03-28 07:55] LABS: ALK PHOS 60 U/L (45-117); BILIRUBIN,TOTAL 0.4 mg/dL (0.2-1.0); CREATININE 0.7 mg/dL (0.7-1.3); PHOSPHOROUS 4.3 mg/dL (2.5-4.9); SGOT/AST 23 U/L (15-37); SGPT/ALT 27 U/L (12-78); TOT PROT 5.3 g/dl (6.4-8.2)
[2017-03-28 08:01] LABS: BILIRUBIN,DIRECT 0.1 mg/dL (0.0-0.2); C-REACTIVE PROTEIN 2.1 MG/DL (0.00-0.3)
[2017-03-28] MEDS: ACETAMINOPHEN 325 MG TABLET (FP) PO PRN ×3 (08:37→21:39)
[2017-03-28] MEDS: oxyCODONE HCL 5 MG TABLET PO PRN (08:38)
[2017-03-28 08:49] LABS: PLATELET ESTIMATE ADEQUATE (NORMAL)
[2017-03-28] MEDS ORDERED: PT OWN MED DRAWER 7, Y5N ONE ×2 (09:49→21:29)
[2017-03-28] MEDS: cloNIDine HCL 0.1 MG TABLET PO SCH ×2 (09:52→21:41)
[2017-03-28] MEDS: LACTOBACILLUS ACIDOPHILUS 1 EACH TAB (FP) PO SCH (09:52)
[2017-03-28] MEDS: NICOTINE 21 MG/24 HOURS TOPICAL PATCH TD SCH (09:55)
--- NOTE | 2017-03-28 11:01 | PN ---
Progress Note (short form) - Note Progress Note: Pt seen and examined in bed. Had ERCP yesterday with finding of stump leak; stent placed. STAN drainage biliousbut scant output since coming back to floor - bulb is total since then, very little. Pt c/o increased anxiety but cannot identify anything specific he is anxious about. He is getting his usual meds. Had clears last night after ERCP, did not have much for breakfast - hungry. Pain is less, asking for Tylenol when needed. Ok with stopping Percocet prn. Vital Signs - 24 hr 03/27/17 03/27/17 03/27/17 11:00 11:33 15:45 Temperature 98.6 F 98.9 F Pulse Rate 64 56 L 60 Respiratory 18 16 Rate Blood Pressure 150/90 152/92 O2 Sat by Pulse 92 L 100 Oximetry (%) 03/27/17 03/27/17 03/27/17 16:00 16:15 16:30 Temperature Pulse Rate 60 56 L 58 L Respiratory 16 16 16 Rate Blood Pressure 192/96 172/95 173/95 O2 Sat by Pulse 99 99 99 Oximetry (%) 03/27/17 03/27/17 03/27/17 16:45 17:00 17:15 Temperature 98.3 F Pulse Rate 60 62 62 Respiratory 16 16 16 Rate Blood Pressure 172/86 158/90 167/80 O2 Sat by Pulse 99 99 Oximetry (%) 03/27/17 03/27/17 03/27/17 19:00 21:00 22:53 Temperature 98.2 F 99.3 F Pulse Rate 68 62 Respiratory 18 18 Rate Blood Pressure 156/73 159/80 O2 Sat by Pulse 98 Oximetry (%) 03/28/17 03/28/17 06:00 08:30 Temperature 98.5 F 98.5 F Pulse Rate 62 65 Respiratory 18 20 Rate Blood Pressure 154/92 174/83 O2 Sat by Pulse Oximetry (%) Intake & Output 03/25/17 03/26/17 03/27/17 03/28/17 23:59 23:59 23:59 23:59 Intake Total 4030 2225 2750 2100 Output Total 35 90 1320 Balance 3995 2135 1430 2100 STAN output bilious, 120ml yesterday, minimal since ERCP PE: abdomen soft, obese, incisionally tender mainly at subxiphoid and supraumbilical sites, no RUQ tenderness STAN drain site dressing just changed - yellow tinged but not saturated yet bulb with bilious drainage, very little akosua C/D/I CBCD WBC 8.3 K/mm3 (4.0-10.0) D 03/28/17 06:00 RBC 3.46 M/mm3 (4.00-5.60) L 03/28/17 06:00 Hgb 9.8 GM/dL (11.7-16.9) L 03/28/17 06:00 Hct 28.4 % (35.4-49) L 03/28/17 06:00 MCV 82.2 fl (80-96) 03/28/17 06:00 MCHC 34.3 g/dl (32.0-35.9) 03/28/17 06:00 RDW 13.2 % (11.9-15.9) 03/28/17 06:00 Plt Count 348 K/MM3 (134-434) 03/28/17 06:00 MPV 7.1 fl (7.5-11.1) L 03/28/17 06:00 CMP Sodium 139 mmol/L (136-145) 03/28/17 06:00 Potassium 3.6 mmol/L (3.5-5.1) 03/28/17 06:00 Chloride 99 mmol/L (98-107) 03/28/17 06:00 Carbon Dioxide 34 mmol/L (21-32) H 03/28/17 06:00 Anion Gap 6 (8-16) L 03/28/17 06:00 BUN 4 mg/dL (7-18) L 03/28/17 06:00 Creatinine 0.7 mg/dL (0.7-1.3) 03/28/17 06:00 Creat Clearance w eGFR > 60 (>60) 03/28/17 06:00 Calcium 7.9 mg/dL (8.5-10.1) L 03/28/17 06:00 Total Bilirubin 0.4 mg/dL (0.2-1.0) D 03/28/17 06:00 AST 23 U/L (15-37) 03/28/17 06:00 ALT 27 U/L (12-78) 03/28/17 06:00 Alkaline Phosphatase 60 U/L (45-117) 03/28/17 06:00 Total Protein 5.3 g/dl (6.4-8.2) L 03/28/17 06:00 Albumin 2.2 g/dl (3.4-5.0) L 03/28/17 06:00 amylase 38, lipase 341 this am (wnl) A/P: POD5 s/p lap marga with gangrenous gallbladder s/p ERCP yesterday with stenting for cystic duct stump leak labs ok this am kendal clears last night, hungry this am continue antibiotics at least until discharge po pain meds only - using Tylenol, will d/c Percocet continue STAN drain and monitor output BP may be related to increased anxiety? recommend to have Dr. Garner follow up again with patient regarding any med adjustments hep C - pt has plan to see doctor through his clinic after d/c postop instructions are in d/c plan - pt to call for appt to f/u in clinic for staple removal 2 wks after surgery will f/u with GI regarding stent Problem List - Problems (1) Calculus of gallbladder with acute cholecystitis without obstruction Code(s): K80.00 - CALCULUS OF GALLBLADDER W ACUTE CHOLECYST W/O OBSTRUCTION (2) Common bile duct dilation Code(s): K83.8 - OTHER SPECIFIED DISEASES OF BILIARY TRACT (3) Bipolar disorder Code(s): F31.9 - BIPOLAR DISORDER, UNSPECIFIED Qualifiers: Active/Remission status: remission status unspecified Qualified Code (s): F31.9 - Bipolar disorder, unspecified (4) Constipation Code(s): K59.00 - CONSTIPATION, UNSPECIFIED Qualifiers: Constipation type: drug induced constipation Qualified Code(s): K59.03 - Drug induced constipation (5) Hypertension Code(s): I10 - ESSENTIAL (PRIMARY) HYPERTENSION Qualifiers: Hypertension type: essential hypertension Qualified Code(s): I10 - Essential (primary) hypertension (6) Methadone maintenance therapy patient Code(s): F11.20 - OPIOID DEPENDENCE, UNCOMPLICATED (7) Polysubstance abuse Code(s): F19.10 - OTHER PSYCHOACTIVE SUBSTANCE ABUSE, UNCOMPLICATED (8) Leakage of cystic duct Assessment/Plan: s/p ERCP with stent, drainage significantly less Code(s): K83.8 - OTHER SPECIFIED DISEASES OF BILIARY TRACT
--- NOTE | 2017-03-28 13:13 | PN ---
Progress Note, Physician Chief Complaint: s/p ERCP under general anesthesia History of Present Illness: post op day one - Current Medication List Current Medications: Active Medications Acetaminophen (Tylenol -) 650 mg PO Q6H PRN PRN Reason: FEVER OR PAIN Albuterol/Ipratropium (Duoneb -) 1 amp NEB Q6H PRN PRN Reason: SHORTNESS OF BREATH Last Admin: 03/24/17 23:17 Dose: 1 amp Bisacodyl (Dulcolax Suppository -) 10 mg RC PRN PRN PRN Reason: CONSTIPATION Buspirone HCl (Buspar -) 10 mg PO TID [facility] Last Admin: 03/28/17 05:54 Dose: 10 mg Clonazepam (Klonopin -) 0.5 mg PO TID [facility] Last Admin: 03/28/17 05:53 Dose: 0.5 mg Clonidine (Catapres -) 0.3 mg PO BID [facility] Last Admin: 03/28/17 09:52 Dose: 0.3 mg Enoxaparin Sodium (Lovenox -) 40 mg SQ DAILY [facility] Last Admin: 03/26/17 09:58 Dose: 40 mg Piperacillin Sod/Tazobactam (Sod 4.5 gm/ Dextrose) 100 mls @ 200 mls/hr IVPB Q8H-IV CHELA PRN Reason: Protocol Last Admin: 03/28/17 09:53 Dose: 200 mls/hr Lactobacillus Acidophilus (Bacid -) 1 tab PO DAILY [facility] Last Admin: 03/28/17 09:52 Dose: 1 tab Methadone HCl 80 mg/ Methadone (HCl 5 mg) 85 mg PO DAILY@0600 [facility] Last Admin: 03/28/17 05:54 Dose: 85 mg Nicotine (Nicoderm Patch -) 21 mg TD DAILY [facility] Last Admin: 03/28/17 09:55 Dose: 21 mg Ondansetron HCl (Zofran Injection) 4 mg IVPB Q4H PRN PRN Reason: NAUSEA AND/OR VOMITING Polyethylene Glycol (Miralax (For Daily Use) -) 17 gm PO TID [facility] Last Admin: 03/28/17 06:02 Dose: Not Given Quetiapine Fumarate 200 mg/ (Quetiapine Fumarate 25 mg) 225 mg PO HS [facility] Last Admin: 03/27/17 21:26 Dose: 225 mg - Objective Vital Signs: Vital Signs Temperature 98.5 F 03/28/17 08:30 Pulse Rate 59 L 03/28/17 11:18 Respiratory Rate 20 03/28/17 08:30 Blood Pressure 163/93 03/28/17 11:18 O2 Sat by Pulse Oximetry (%) 98 03/27/17 21:00 Constitutional: Yes: Well Nourished Cardiovascular: Yes: WNL Respiratory: Yes: WNL Gastrointestinal: Yes: WNL Labs: CBC, BMP 03/28/17 06:00 03/28/17 06:00 INR, PTT INR 1.12 (0.82-1.09) 03/27/17 06:30 Assessment/Plan No adverse events from anesthetic, dept of anesthesia will sign off care at this time
--- NOTE | 2017-03-28 13:41 | PN ---
GI Progress Note Subjective: GASTROENTEROLOGY ([facility] JOB) S/P ERCP-S AND STENT PLACEMENT FOR ESTABLISHED BILE LEAK NO PAIN, AMYLASE AND LIPASE NORMAL - Objective Vital Signs: Vital Signs Temperature 98.5 F 03/28/17 08:30 Pulse Rate 59 L 03/28/17 11:18 Respiratory Rate 20 03/28/17 08:30 Blood Pressure 163/93 03/28/17 11:18 O2 Sat by Pulse Oximetry (%) 98 03/27/17 21:00 Constitutional: No Distress Eyes: Yes: Conjunctiva Clear HENT: Yes: Normocephalic Cardiovascular: Yes: Regular Rate and Rhythm Respiratory: Yes: Regular Gastrointestinal Inspection: Yes: Distention ...Auscultate: Yes: Normoactive Bowel Sounds ...Palpate: Yes: Soft Extremities: Yes: WNL Labs: CBC, BMP 03/28/17 06:00 03/28/17 06:00 INR, PTT INR 1.12 (0.82-1.09) 03/27/17 06:30 Laboratory Tests 03/28/17 06:00 Total Amylase 38 D Lipase 341 Problem List - Problems (1) Bile leak, postoperative Assessment/Plan: S/P ERCP-S WITH STENT PLACEMENT FOLLOW LFT'S ADVANCE DIET PER SURGERY REPEAT ERCP IN 3 MONTHS IF CONTINUED ABDOMINAL PAIN AND LARGE BILOMA THAT WOULD NEED TO BE DRAINED PRITI CLIFFORD MD Code(s): K91.89 - OTH POSTPROCEDURAL COMPLICATIONS AND DISORDERS OF DGSTV SYS K83.8 - OTHER SPECIFIED DISEASES OF BILIARY TRACT (2) Calculus of gallbladder with acute cholecystitis without obstruction Code(s): K80.00 - CALCULUS OF GALLBLADDER W ACUTE CHOLECYST W/O OBSTRUCTION
[2017-03-28] MEDS ORDERED: amLODIPine BESYLATE 5 MG TABLET (FP) PO ONE (14:32)
--- NOTE | 2017-03-28 17:09 | PN ---
Physical Exam: SUBJECTIVE: Patient seen and examined at the bedside. States he is always anxious and often has panic attacks. He is under the care of a psychiatrist whom he agrees to see when he is discharged. Assured him that I will give him enough scripts of his psyche meds until he is able to see his psychiatrist after d/c. Patient is asking for new PCP referral, one will be provided as per his request OBJECTIVE: BP remains elevated, Clonidine increased to 0.3mg BID Norvasc 5mg x 1 given today Patient is requesting new PCP referral which I assured him I will provide Vital Signs Period Temp Pulse Resp BP Sys/Nova Pulse Ox Last 24 Hr 98.2 F-99.3 F 59-68 16-20 154-174/73-93 98 GENERAL: The patient is awake, alert, and fully oriented, anxious HEAD: Normal with no signs of trauma. EYES: PERRL, extraocular movements intact, sclera anicteric, conjunctiva clear. No ptosis. ENT: Ears normal, nares patent, oropharynx clear without exudates, moist mucous membranes. ABDOMEN: Mildly distended, + bowel sounds, no guarding, no rebound, surgical/ akosua sites c/d/i, no guarding, no +STAN drain now with bili drainage EXTREMITIES: 2+ pulses, warm, well-perfused, no edema. NEUROLOGICAL: Normal speech, steady gait PSYCH: anxious Laboratory Results - last 24 hr 03/28/17 03/28/17 03/28/17 06:00 06:00 06:00 WBC 8.3 D RBC 3.46 L Hgb 9.8 L Hct 28.4 L MCV 82.2 MCH 28.2 MCHC 34.3 RDW 13.2 Plt Count 348 MPV 7.1 L Neutrophils % 70.0 Lymphocytes % 20.0 Monocytes % 4.0 Eosinophils % 3.0 Basophils % Anthropologist Physical Band Neutrophils 3.0 Differential Comment Slide scanned Platelet Estimate Adequate Sodium 139 Potassium 3.6 Chloride 99 Carbon Dioxide 34 H Anion Gap 6 L BUN 4 L Creatinine 0.7 Creat Clearance w eGFR > 60 Random Glucose 101 Calcium 7.9 L Phosphorus 4.3 D Magnesium 1.9 Total Bilirubin 0.4 D Direct Bilirubin 0.1 D AST 23 ALT 27 Alkaline Phosphatase 60 C-Reactive Protein 2.1 H D Total Protein 5.3 L Albumin 2.2 L Total Amylase 38 D Lipase 341 Active Medications Generic Name Dose Route Start Last Admin Trade Name Freq PRN Reason Stop Dose Admin Acetaminophen 650 mg 03/28/17 10:40 03/28/17 16:33 Tylenol - PO 650 mg Q6H PRN Administration FEVER OR PAIN Albuterol/Ipratropium 1 amp 03/23/17 17:26 03/24/17 23:17 Duoneb - NEB 1 amp Q6H PRN Administration SHORTNESS OF BREATH Bisacodyl 10 mg 03/23/17 17:26 Dulcolax Suppository - RC PRN PRN CONSTIPATION Buspirone HCl 10 mg 03/23/17 22:00 03/28/17 13:23 Buspar - PO 10 mg TID CHELA Administration Clonazepam 0.5 mg 03/23/17 22:00 03/28/17 13:23 Klonopin - PO 0.5 mg TID CEHLA Administration Clonidine 0.3 mg 03/27/17 22:00 03/28/17 09:52 Catapres - PO 0.3 mg BID CHELA Administration Enoxaparin Sodium 40 mg 03/24/17 12:00 03/26/17 09:58 Lovenox - SQ 40 mg DAILY CHELA Administration Piperacillin Sod/Tazobactam 100 mls @ 200 mls/hr 03/23/17 18:00 03/28/17 09:53 Sod 4.5 gm/ Dextrose IVPB 200 mls/hr Q8H-IV CHELA Administration Protocol Lactobacillus Acidophilus 1 tab 03/24/17 10:00 03/28/17 09:52 Bacid - PO 1 tab DAILY [facility]LA Administration Methadone HCl 80 mg/ Methadone 85 mg 03/24/17 06:00 03/28/17 05:54 HCl 5 mg PO 85 mg DAILY@0600 [facility]LA Administration Nicotine 21 mg 03/26/17 12:30 03/28/17 09:55 Nicoderm Patch - TD 21 mg DAILY [facility]LA Administration Ondansetron HCl 4 mg 03/23/17 17:15 Zofran Injection IVPB Q4H PRN NAUSEA AND/OR VOMITING Polyethylene Glycol 17 gm 03/25/17 14:00 03/28/17 13:23 Miralax (For Daily Use) - PO Not Given TID CHELA Quetiapine Fumarate 200 mg/ 225 mg 03/23/17 22:00 03/27/17 21:26 Quetiapine Fumarate 25 mg PO 225 mg HS CHELA Administration ASSESSMENT/PLAN: Patient is a 46 year old male with a significant past medical history of hypertension, current everyday smoker, hepatitis C and PTSD. He presented to the ER on 03/19/2017 with abdominal pain and was diagnosed with cholecystitis. He is s/p lap cholecystectomy on 03/23/2017 for gangrenous gallbladder with dense rind and overlying adhesions. GI: Cholecystitis - s/p cholecytectomy on 03/23/17 for gangrenous gallbladder Assessment/Plan: On IV antibiotics of Zosyn (started 03/23) On Motrin and Tylenol for pain control Advance diet as per surgery, repeat ERCP in 3 months as per GI patient is s/p ERCP yesterday with stent placement for bile leak Will d/c with drain, discharge STAN drain care provided on d/c instructions by surgeon Discharge tomorrow likely once cleared by surgery Hepatitis C Assessment/Plan: Patient refusing intervention for hep C during hospitalization Cardiology: Hypertension - chronic and currently elevated Assessment/Plan: Clonidine increased to 0.3mg BID, gave one dose of Norvasc 5mg x 1 Monitor BP for improvement Psyche: Opiod dependence Assessment/Plan: On methadone 85mg daily Tobacco dependence Assessment/Plan: On nicotine patch Anxiety Assessment/Plan: On Klonopin 0.5mg PO TID F.E.N. Fluids: Tolerating PO Electrolytes: monitor with BMP Nutrition: as per GI Prophylaxis: GI: Acidophillis DVT: Lovenox daily Disposition: Requires inpatient hospitalization. Full Code. Visit type - Emergency Visit Emergency Visit: Yes ED Registration Date: 03/19/17 Care time: The patient presented to the Emergency Department on the above date and was hospitalized for further evaluation of their emergent condition. - New Patient This patient is new to me today: No - Critical Care Critical Care patient: No - Discharge Referral Referred to [facility] Med P.C.: No
[2017-03-28] MEDS: QUETIAPINE FUMARATE PO SCH (21:40)
[2017-03-29] MEDS: PIPERACILLIN/TAZOB 4.5 GM 4.5 GM in DEXTROSE 5%-WATER 100 ML IVPB SCH ×2 (01:17→09:10)
[2017-03-29] MEDS ORDERED: METHADONE HCL 5 MG TABLET ONE (05:47)
[2017-03-29] MEDS ORDERED: METHADONE HCL 40 MG DISPERSABLE TABLET ONE (05:47)
[2017-03-29] MEDS: METHADONE 80 MG, METHADONE 5 MG PO SCH (05:52)
[2017-03-29] MEDS: busPIRone HCL 5 MG TABLET PO SCH ×2 (05:52→13:17)
[2017-03-29] MEDS: clonazePAM 0.5 MG TABLET PO SCH ×2 (05:52→13:18)
[2017-03-29] MEDS: POLYETHYLENE GLYCOL 3350 119 GM BTL PO SCH ×2 (05:54→13:18)
[2017-03-29 08:00] LABS: MCH 27.8 pg (25.7-33.7); MCHC 33.5 g/dl (32.0-35.9); MEAN CELL VOLUME 83.1 fl (80-96); MEAN PLT VOLUME 7.4 fl (7.5-11.1); PLATELET COUNT 394 K/MM3 (134-434); RDW 13.5 % (11.9-15.9); WHITE BLOOD COUNT 7.5 K/mm3 (4.0-10.0)
[2017-03-29 08:23] LABS: ALBUMIN 2.9 g/dl (3.4-5.0); ANION GAP 10 (8-16); BILIRUBIN,TOTAL 0.5 mg/dL (0.2-1.0); CALCIUM 8.5 mg/dL (8.5-10.1); CO2 32 mmol/L (21-32); CREATININE 0.8 mg/dL (0.7-1.3); GLUCOSE,RANDOM 79 mg/dL (74-106); SGOT/AST 25 U/L (15-37); SGPT/ALT 28 U/L (12-78); TOT PROT 6.6 g/dl (6.4-8.2)
[2017-03-29 08:24] LABS: ALK PHOS 73 U/L (45-117)
[2017-03-29 09:03] VITALS: BP 149/94; PULSE 91; TEMP 98.4
[2017-03-29] MEDS ORDERED: PIPERACILLIN/TAZOBACTAM 4.5 GM VIAL IVPB ONE (09:06)
[2017-03-29] MEDS ORDERED: DEXTROSE 5%-WATER 100 ML IVPB ONE (09:06)
[2017-03-29] MEDS ORDERED: PT OWN MED DRAWER 7, Y5N ONE (09:06)
[2017-03-29] MEDS: LACTOBACILLUS ACIDOPHILUS 1 EACH TAB (FP) PO SCH (09:09)
[2017-03-29] MEDS: cloNIDine HCL 0.1 MG TABLET PO SCH (09:09)
[2017-03-29] MEDS: NICOTINE 21 MG/24 HOURS TOPICAL PATCH TD SCH (09:12)
[2017-03-29] MEDS: ENOXAPARIN NA (PORCINE) 40 MG/0.4 ML DISP.SYRIN SQ SCH (09:12)
[2017-03-29 10:11] LABS: PLATELET ESTIMATE ADEQUATE (NORMAL)
[2017-03-29] MEDS ORDERED: amLODIPine BESYLATE 2.5 MG TABLET (FP) PO SCH (10:45)
[2017-03-29] MEDS: ACETAMINOPHEN 325 MG TABLET (FP) PO PRN (11:16)
--- NOTE | 2017-03-29 14:40 | DS ---
Physical Exam: SUBJECTIVE: Patient seen and examined at the bedside. States he is always anxious and often has panic attacks. Patient is asking for new PCP referral, one will be provided as per his request OBJECTIVE: Clonidine increased to 0.3mg BID yesterday for elevated BP, BP now improving Patient's mother taught how to care for STAN drain including opening bulb, draining and recording contents as well as squeezing bulb close after drainage. She was able to demonstrate technique successfully. STAN drainage care part of patient's instruction packet. Spoke to surgeon, patient will be sent home without antibiotics. He will follow up with surgery this Thursday. Vital Signs Period Temp Pulse Resp BP Sys/Nova Pulse Ox Last 24 Hr 97.3 F-98.8 F 69-91 20-20 149-168/85-99 98 PHYSICAL EXAM GENERAL: The patient is awake, alert, and fully oriented, anxious HEAD: Normal with no signs of trauma. EYES: PERRL, extraocular movements intact, sclera anicteric, conjunctiva clear. No ptosis. ENT: Ears normal, nares patent, oropharynx clear without exudates, moist mucous membranes. ABDOMEN: Mildly distended, + bowel sounds, no guarding, no rebound, surgical/ akosua sites c/d/i, no guarding, no +STAN drain now with bili drainage EXTREMITIES: 2+ pulses, warm, well-perfused, no edema. NEUROLOGICAL: Normal speech, steady gait PSYCH: anxious LABS Laboratory Results - last 24 hr 03/29/17 03/29/17 06:00 06:00 WBC 7.5 RBC 4.21 D Hgb 11.7 D Hct 35.0 L D MCV 83.1 MCH 27.8 MCHC 33.5 RDW 13.5 Plt Count 394 MPV 7.4 L Neutrophils % 66.0 Lymphocytes % 21.0 Monocytes % 4.0 Eosinophils % 3.0 Basophils % 1.0 Band Neutrophils 3.0 Myelocytes 2 Differential Comment Slide scanned Platelet Estimate Adequate Sodium 139 Potassium 3.8 Chloride 97 L Carbon Dioxide 32 Anion Gap 10 BUN 5 L D Creatinine 0.8 Creat Clearance w eGFR > 60 Random Glucose 79 D Calcium 8.5 Total Bilirubin 0.5 D AST 25 ALT 28 Alkaline Phosphatase 73 D Total Protein 6.6 D Albumin 2.9 L D HOSPITAL COURSE: Date of Admission:03/19/17 Date of Discharge: 03/29/17 ASSESSMENT/PLAN: Patient is a 46 year old male with a significant past medical history of hypertension, current everyday smoker, hepatitis C and PTSD. He presented to the ER on 03/19/2017 with abdominal pain and was diagnosed with cholecystitis. He is s/p lap cholecystectomy on 03/23/2017 for gangrenous gallbladder with dense rind and overlying adhesions. GI: Cholecystitis - s/p cholecytectomy on 03/23/17 for gangrenous gallbladder - resolved Assessment/Plan: S/P ERCP and stent placement for established bile leak on 2016 He as completed a full course of IV antibiotics since admission patient is s/p ERCP with stent placement for bile leak and new STAN drain was placed On Tylenol for pain control Tolerating diet, no nausea or vomiting, no abdominal discomfort For a repeat ERCP in 3 months as per GI Will discharge patient with STAN drain, discharge STAN drain care provided on d/c instructions by surgeon Successful return demonstration of STAN drain care demonstrated by patient's mother Cleared by surgery for d/c with follow up on Thursday Hepatitis C - chronic Assessment/Plan: Patient refusing intervention for hep C during hospitalization Cardiology: Hypertension - chronic and BP improving Assessment/Plan: Clonidine increased to 0.3mg BID Monitor BP for improvement outpatient Psyche: Opiod dependence - chronic Assessment/Plan: On methadone 85mg daily Tobacco dependence - chronic Assessment/Plan: On nicotine patch Anxiety - chronic Assessment/Plan: On Klonopin 0.5mg PO TID Disposition: Clear for discharge home. Full Code. Minutes to complete discharge: 60 Discharge Summary Reason For Visit: CHOLECYSTITIS Current Active Problems Bile leak, postoperative (Acute) Calculus of gallbladder with acute cholecystitis without obstruction (Acute) Cholecystitis (Acute) Common bile duct dilation (Acute) Hepatitis C (Acute) Leakage of cystic duct (Acute) Methadone maintenance therapy patient (Acute) Polysubstance abuse (Acute) Sedative, hypnotic or anxiolytic dependence, uncomplicated (Acute) Condition: Stable - Instructions Diet, Activity, Other Instructions: Postoperative instructions: You had a laparoscopic cholecystectomy on 03/23/[address] Jimbo Smith of [facility]. You also had an ERCP with a biliary stent placed by Dr. Plaza of Gastroenterology on 03/27/17. Resume your usual activities gradually, but no heavy exertion or lifting more than 10-15 pounds for 4-6 weeks. You may not shower until the drain is removed - take sponge baths and keep incisions clean daily, pat dry. No swimming or baths until all skin incisions are healed after akosua come out in clinic. Keep drain clipped so it does not hang free. Empty and record the drainage at least daily and as needed to keep the bulb from getting too full. Eat lightly at first, but advance to your usual diet as tolerated. For pain, you may use Tylenol (acetaminophen) every 6 hours as needed and as directed on the bottle. Do not take more than 3000mg of acetaminophen in a day. Continue your daily methadone through your clinic. Call Dr. Smith's office at [phone] for your postop appointments - this Sunday 04/01 for drain removal and the following week for staple removal. Call Dr. Smith if you have: - increasing pain not responsive to pain medication - fever of 101F or higher - vomiting - unusual or increasing bleeding or drainage from wounds - increasing redness or swelling at wound sites Follow up with GI to REPEAT ERCP IN 3 MONTHS. Follow up with your psychiatrist CHARLES. Follow up with primary medical doctor within 1-2 weeks. Keep your appointment to address hepatitis C through your program. STAN DRAIN CARE: 1. wash your hands, use gloves when touching the STAN bulb 2. Hold drain securely 3. remove the drain plug from the emptying port 4. Carefully turn the bulb upside down over the small measuring cup we provided and squeeze all of the drainage into the measuring cup. 5. Swab the drain plug with alcohol swabs to keep tip sterile 6. Squeeze bulb to ensure that the bulb and while still squeezing the bulb, replace the drainage port to keep the drain sucking out fluid 7. Record the amount of fluid, take note of color 8. Rinse cup and wash your hands Change dressing daily as demonstrated by your nurse. Please call us with any questions that you may have. Referrals: Randall Beltran MD [Staff Physician] - Paulette Plaza MD [Staff Physician] - Disposition: HOME - Home Medications Comprehensive Discharge Medication List: Ambulatory Orders Methadone [Dolophine -] 80 mg PO DAILY 03/19/17 Quetiapine Fumarate [Seroquel -] 200 mg PO HS 03/19/17 Clonazepam 1 tab PO TID 03/20/17 Buspirone HCl [Buspar -] 10 mg PO TID #15 tab 03/29/17 Buspirone HCl [Buspar -] 10 mg PO TID #30 tablet MDD 30 mg 03/29/17 Clonazepam [Klonopin -] 0.5 mg PO TID #15 tablet MDD 3 tabs 03/29/17 Clonidine HCl [Catapres -] 0.3 mg PO BID #60 tablet 03/29/17 Quetiapine Fumarate [Seroquel -] 225 mg PO HS #14 tablet 03/29/17 Quetiapine Fumarate [Seroquel -] 225 mg PO HS #30 tablet 03/29/17 This patient is new to me today: No Emergency Visit: Yes ED Registration Date: 03/19/17 Care time: The patient presented to the Emergency Department on the above date and was hospitalized for further evaluation of their emergent condition. Critical Care patient: No - Discharge Referral Referred to [facility] Med P.C.: No
== END 2017-03-29 15:44 | disposition home or self-care (01) | DRG 263 ==
LOC: FER 11:01 → FM/S 19:07 → J8W 03-21 00:32
PROVIDERS: ADMIT Internal Medicine; ATTEND Nurse Practitioner Family
PROC: 0F9440Z Drainage of Gallbladder with Drainage Device, Percutaneous Endoscopic Approach (ICD-10-PCS; 2017-03-23)
PROC: 0DNS4ZZ (ICD-10-PCS; 2017-03-23)
PROC: 0FT44ZZ Resection of Gallbladder, Percutaneous Endoscopic Approach (ICD-10-PCS; principal; 2017-03-23 10:30)
PROC: 0F798DZ Dilation of Common Bile Duct with Intraluminal Device, Via Natural or Artificial Opening Endoscopic (ICD-10-PCS; 2017-03-27)
DX: K80.00 Calculus of gallbladder with acute cholecystitis without obstruction (principal); K66.0 Peritoneal adhesions (postprocedural) (postinfection); I10 Essential (primary) hypertension; B19.20 Unspecified viral hepatitis C without hepatic coma; F43.10 Post-traumatic stress disorder, unspecified; F17.210 Nicotine dependence, cigarettes, uncomplicated; F11.20 Opioid dependence, uncomplicated; F40.01 Agoraphobia with panic disorder; F31.9 Bipolar disorder, unspecified; K82.8 Other specified diseases of gallbladder; K76.0 Fatty (change of) liver, not elsewhere classified; K59.03 Drug induced constipation; F19.10 Other psychoactive substance abuse, uncomplicated; E66.9 Obesity, unspecified; Z68.37 Body mass index [BMI] 37.0-37.9, adult; K83.8 Other specified diseases of biliary tract; D64.9 Anemia, unspecified; D72.829 Elevated white blood cell count, unspecified
CPT/HCPCS: 36415; 71010-TC; 74020-TC; 74177-TC; 74182-TC; 76000-TC; 76705-TC; 78226-TC; 80048; 80053; 80076; 81003; 82105; 82150; 82172; 82248; 82728; 82977; 83010; 83540; 83550; 83690; 83735; 83883; 84100; 84460; 85025; 85044; 85610; 86140; 86704; 86706; 86708; 86850; 86900; 86901; 87040; 87340; 87522; 87902; 88304-TC; 93005; 94640; 94760; 99284-25; A9537

== ENCOUNTER 2022-11-10 14:42 | Emergency (ER) | payer OTHER ==
[2022-11-10 14:48] VITALS: BP 115/74; PULSE 65; RESP 18; TEMP 98.5; BMI 24.3
[2022-11-10] MEDS ORDERED: KETOROLAC TROMETHAMINE 30 MG/1 ML VIAL IM ONE (18:04)
[2022-11-10] MEDS ORDERED: KETOROLAC TROMETHAMINE 30 MG/1 ML VIAL ONE (18:07)
[2022-11-10] MEDS ORDERED: predniSONE 20 MG TABLET (UD) PO ONE (18:47)
[2022-11-10] MEDS ORDERED: predniSONE 20 MG TABLET (UD) ONE (18:49)
[2022-11-10 18:54] LABS: HEMATOCRIT 42.3 % (35.4-49); HEMOGLOBIN 15.1 G/dL (11.7-16.9); MCH 32.4 pg (25.7-33.7); MCHC 35.7 g/dl (32.0-35.9); MEAN CELL VOLUME 90.6 fl (80-96); MEAN PLT VOLUME 8.9 fl (7.5-11.1); PLATELET COUNT 175.4 10^3/uL (134-434); RBC 4.67 10^6/uL (4.00-5.60); RDW 12.8 % (11.9-15.9); WHITE BLOOD COUNT 8.8 10^3/uL (4.0-10.8)
[2022-11-10 18:55] LABS: ALBUMIN 4.2 g/dl (3.4-5.0); BILIRUBIN,TOTAL 0.8 mg/dl (0.2-1); CALCIUM 8.4 mg/dl (8.5-10)
[2022-11-10] MEDS ORDERED: METHOCARBAMOL 500 MG TABLET PO ONE (19:11)
[2022-11-10] MEDS ORDERED: METHOCARBAMOL 500 MG TABLET ONE (19:13)
== END 2022-11-10 19:10 | disposition home or self-care (01) ==
LOC: FER 14:42
PROC: 3E0233Z Introduction of Anti-inflammatory into Muscle, Percutaneous Approach (ICD-10-PCS; principal; 2022-11-10)
DX: M54.12 Radiculopathy, cervical region (principal); M54.2 Cervicalgia; R20.2 Paresthesia of skin
CPT/HCPCS: 36415; 72125-TC; 80053; 85027; 99284-25; C9803-CS; U0003; U0005